=== PATIENT | male | born 1940 | race Caucasian/White ===

== ENCOUNTER 2019-08-13 12:50 | Inpatient (IN) ==
[2019-08-13] MEDS ORDERED: ADENOSINE 3 MG/ML VIAL IV ONE ×3 (13:09→13:17)
[2019-08-13] MEDS ORDERED: DILTIAZEM 25 MG/5 ML VIAL IV ONE ×2 (13:15→14:33)
[2019-08-13] MEDS ORDERED: DILTIAZEM 125 MG in DEXTROSE 5% IN WATER 100 ML IV SCH (13:15)
--- NOTE | 2019-08-13 13:19 | Emergency Department Note ---
Arrhythmia/Palpitations HPI - General Chief Complaint: Arrhythmia/Palpitations Stated Complaint: cough, elevated HR Time Seen by Provider: 08/13/19 12:56 Source: patient Mode of arrival: ambulatory Limitations: no limitations - History of Present Illness HPI Narrative: Has had some increased dyspnea on exertion for the last 2 weeks. He came to the emergency room because of that and was not aware that his heart was beating fast. He is in atrial flutter at rate about 170. Has never had that before. He does have a history of mild COPD and has had a slight cough recently bringing up some slight yellow phlegm. Does not feel very short of breath except when he exerts himself. Has had no chest pain. No nausea or vomiting. - Related Data Home Medications Medication Instructions Recorded Confirmed lisinopril 10 mg tablet 10 mg PO QDAY 09/18/17 08/13/19 omeprazole 20 mg capsule,delayed 20 mg PO .COMPLEX 09/18/17 08/13/19 release simvastatin 10 mg tablet 10 mg PO QDAY tab 01/31/18 08/13/19 2 liters oxygen at night 1 dose .ROUTE QHS #1 ea 12/26/18 08/13/19 Allergies Allergy/AdvReac Type Severity Reaction Status Date / Time No Known Drug Allergies Allergy Verified 06/15/19 14:27 Review of Systems All systems ED: reviewed and negative except as stated. Past Medical History - Past Medical History [facility] Narrative: Medical History (Last Reviewed 06/15/19 @ 15:07 by Jeb Ceballos MD) Nocturnal hypoxia (Acute) Pulmonary HTN (Chronic) Bronchiectasis (Chronic) Gastroesophageal reflux disease (Chronic) Bullous emphysema (Chronic) Kidney disease, chronic, stage III (GFR 30-59 ml/min) (Chronic) Spondylosis, lumbar, with myelopathy (Chronic) Bronchitis, chronic obstructive (Chronic) Arthritis (Chronic) Lumbago (Chronic) Actinic keratosis (Chronic) Lateral epicondylitis of both elbows (Chronic) Medial epicondylitis (Chronic) Nicotine dependence (Chronic) Osteoarthritis (Chronic) Pure hypercholesterolemia (Chronic) CKD (chronic kidney disease), stage II (Chronic) COPD (chronic obstructive pulmonary disease) (Chronic) Poor dentition (Chronic) Left sided chest pain (Chronic) Systolic murmur (Chronic) Pneumatocele of lung (Chronic) Avulsion of skin of finger (Chronic) Loss of teeth due to extraction (Acute) Emphysema/COPD (Chronic) Past Surgical History (Last Reviewed 06/15/19 @ 15:07 by Jeb Ceballos MD) History of arthroscopy of knee (Chronic ~1987) History of nasal surgery (Chronic) Family History (Last Reviewed 06/15/19 @ 15:07 by Jeb Ceballos MD) Mother Heart disease Father Prostate cancer Liver cancer Sister Cancer Unknown Thyroid disease Breast cancer Diabetes mellitus Medical history: Reports: COPD - Social History smoking status: Former smoker Physical Exam Limitations: no limitations General appearance: alert Head: atraumatic Eye: Present: normal appearance ENT: Present: normal exam Neck: Present: normal inspection Chest: Present: normal inspection Respiratory: Present: normal lung sounds bilaterally Cardiovascular: Present: regular rate, tachycardia, normal heart sounds Abdominal: Present: soft. Absent: distention, tenderness Neurological: Present: alert Psychiatric: Present: normal affect Skin: Present: warm, dry Course Course Narrative: Patient was given adenosine 6 mg without effect and then given 12 mg which showed flutter waves and return to the heart rate to 170. At that point we started him on diltiazem. Vital Signs Pulse Rate 170 H 08/13/19 12:50 Respiratory Rate 24 H 08/13/19 12:50 Blood Pressure 125/85 08/13/19 12:50 Pulse Oximetry (%) 93 08/13/19 12:50 Temperature 98.1 F 08/13/19 13:57 Pulse Rate 107 H 08/13/19 17:13 Respiratory Rate 18 08/13/19 17:13 Blood Pressure 101/63 08/13/19 17:11 Pulse Oximetry (%) 93 08/13/19 17:13 Arrhythmia/Palpitations - [facility] Narrative Medical decision making narrative: Patient's chest x-ray surprisingly showed quite a bit of pneumonia bilaterally. Cultures were obtained and he was treated with Levaquin and Rocephin and Zosyn. We did give him diltiazem to bring his heart rate down. He will be admitted the hospital by Dr. Renner. - Lab Data Lab results reviewed: Yes I reviewed the patient's lab results. Result diagrams: 08/13/19 13:00 08/13/19 13:00 Lab Results 08/13/19 08/13/19 08/13/19 Range/Units 13:00 13:00 13:00 WBC 11.7 H (4.50-11.00) K/mcL RBC 4.09 L (4.63-6.08) M/mcL Hgb 12.6 L (13.7-17.5) g/dL Hct 40.4 (40.1-51.0) % MCV 98.8 (80.0-100.0) fL MCH 30.8 (26.0-34.0) pg MCHC 31.2 (31.0-36.0) g/dL RDW 14.1 (11.5-14.5) % Plt Count 449 H (140-440) K/mcL MPV 9.2 (7.4-10.4) fL Gran % 66.6 (38.0-78.0) % Lymph % (Auto) 18.6 (15.5-49.0) % [place] % (Auto) 12.1 H (1.0-12.0) % Eos % (Auto) 2.5 (0.0-7.0) % Baso % (Auto) 0.2 (0.0-2.0) % Gran # 7.78 (1.80-8.00) K/mcL Lymph # (Auto) 2.17 (1.50-4.80) K/mcL [place] # (Auto) 1.41 H (0.10-0.90) K/mcL Eos # (Auto) 0.29 (0.00-0.70) K/mcL Baso # (Auto) 0.02 (0.00-0.30) K/mcL VBG Lactic Acid (0.5-2.0) mmol/L Sodium 139 (133-145) mmol/L Potassium 4.2 (3.3-5.1) mmol/L Chloride 102 (96-108) mmol/L Carbon Dioxide 24 (22-30) mmol/L Anion Gap 13.0 (8-16) BUN 15 (8-23) mg/dl Creatinine 1.0 (0.7-1.2) mg/dl GFR Calculation 73 Glucose 126 H (70-105) mg/dL Calcium 9.2 (8.6-10.4) mg/dl Total Bilirubin 0.3 (0.0-1.0) mg/dL AST 20 (0-37) U/l ALT 21 (0-40) U/l Alkaline Phosphatase 71 (39-117) U/L Troponin T < 0.01 (0-0.03) ng/ml Total Protein 7.3 (5.9-8.4) gm/dL Albumin 3.6 (3.2-5.2) gm/dL Globulin 3.7 (2.2-3.7) gm/dL Albumin/Globulin Ratio 1.0 (1.0-2.3) 08/13/19 Range/Units 14:10 WBC (4.50-11.00) K/mcL RBC (4.63-6.08) M/mcL Hgb (13.7-17.5) g/dL Hct (40.1-51.0) % MCV (80.0-100.0) fL MCH (26.0-34.0) pg MCHC (31.0-36.0) g/dL RDW (11.5-14.5) % Plt Count (140-440) K/mcL MPV (7.4-10.4) fL Gran % (38.0-78.0) % Lymph % (Auto) (15.5-49.0) % [place] % (Auto) (1.0-12.0) % Eos % (Auto) (0.0-7.0) % Baso % (Auto) (0.0-2.0) % Gran # (1.80-8.00) K/mcL Lymph # (Auto) (1.50-4.80) K/mcL [place] # (Auto) (0.10-0.90) K/mcL Eos # (Auto) (0.00-0.70) K/mcL Baso # (Auto) (0.00-0.30) K/mcL VBG Lactic Acid 1.0 (0.5-2.0) mmol/L Sodium (133-145) mmol/L Potassium (3.3-5.1) mmol/L Chloride (96-108) mmol/L Carbon Dioxide (22-30) mmol/L Anion Gap (8-16) BUN (8-23) mg/dl Creatinine (0.7-1.2) mg/dl GFR Calculation Glucose (70-105) mg/dL Calcium (8.6-10.4) mg/dl Total Bilirubin (0.0-1.0) mg/dL AST (0-37) U/l ALT (0-40) U/l Alkaline Phosphatase (39-117) U/L Troponin T (0-0.03) ng/ml Total Protein (5.9-8.4) gm/dL Albumin (3.2-5.2) gm/dL Globulin (2.2-3.7) gm/dL Albumin/Globulin Ratio (1.0-2.3) - Radiology Data Radiology results reviewed: Yes I reviewed the patient's radiology results. Disposition Pt seen by APPLICATION SECURITY ENGINEER/PA only: No Clinical Impression: Atrial flutter, Pneumonia COPD (chronic obstructive pulmonary disease) Qualifiers: COPD type: chronic bronchitis Chronic bronchitis type: simple Qualified Code(s): J41.0 - Simple chronic bronchitis Disposition: Xfer As Inpt ([facility]) Condition: Good Referrals: Christiano Gramajo MD [Primary Care Provider] - Time of Disposition: 17:33
--- NOTE | 2019-08-13 13:36 | XRay Report ---
CLINICAL INFORMATION: sob COMPARISON: Chest CT 01/30/2019. FINDINGS: Mild cardiomegaly is unchanged. Mediastinum and pulmonary vessels are normal. Moderate perihilar infiltrates have developed since previous exam. This is more severe on the left. Small bilateral pleural effusions appreciated IMPRESSION: Moderate perihilar infiltrates, more severe on the left, with small effusions. Consider aspiration or, less likely, pneumonia or ARDS. Moderate underlying COPD Interpreted and Authenticated by: Juma Zavala 08/13/19
[2019-08-13] MEDS ORDERED: PIPERACILLIN SODIUM/TAZOBACTAM 3.375 GM in DEXTROSE 5% IN WATER 50 ML IV ONE (13:53)
[2019-08-13] MEDS ORDERED: LEVOFLOXACIN 750 MG/150 ML BAG IV ONE (13:53)
[2019-08-13] MEDS ORDERED: cefTRIAXone 2 GM in DEXTROSE 5% IN WATER 50 ML IV ONE (13:53)
[2019-08-13 13:55] LABS: Basophils # (Auto) 0.02 K/mcL (0.00-0.30); Basophils % (Auto) 0.2 % (0.0-2.0); Eosinophils # (Auto) 0.29 K/mcL (0.00-0.70); Eosinophils % (Auto) 2.5 % (0.0-7.0); Granulocytes % (Auto) 66.6 % (38.0-78.0); Hematocrit 40.4 % (40.1-51.0); Hemoglobin 12.6 g/dL (13.7-17.5); Lymphocytes # (Auto) 2.17 K/mcL (1.50-4.80); Lymphocytes % (Auto) 18.6 % (15.5-49.0); Mean Cell Volume 98.8 fL (80.0-100.0); Mean Corpuscular HGB Conc 31.2 g/dL (31.0-36.0); Mean Platelet Volume 9.2 fL (7.4-10.4); Monocytes # (Auto) 1.41 K/mcL (0.10-0.90); Monocytes % (Auto) 12.1 % (1.0-12.0); Platelet Count 449 K/mcL (140-440); RBC 4.09 M/mcL (4.63-6.08); Red Cell Distribution Width 14.1 % (11.5-14.5); WBC 11.7 K/mcL (4.50-11.00)
[2019-08-13 14:11] LABS: ALT/SGPT 21 U/l (0-40); AST/SGOT 20 U/l (0-37); Albumin 3.6 gm/dL (3.2-5.2); Alkaline Phosphatase 71 U/L (39-117); Bilirubin,Total 0.3 mg/dL (0.0-1.0); Blood Urea Nitrogen 15 mg/dl (8-23); Calcium 9.2 mg/dl (8.6-10.4); Carbon Dioxide 24 mmol/L (22-30); Chloride 102 mmol/L (96-108); Globulin 3.7 gm/dL (2.2-3.7); Glomerular Filtration Rate 73; Glucose 126 mg/dL (70-105)
--- NOTE | 2019-08-13 16:19 | Internal Med History&Physical ---
Medical - H&P: HPI Patient information: Note initiated : 08/13/19 at 4:16 pm Service Date, if different from initiated Date: [] Patient: Mat Elam 78 y/o M admitted on for cough, elevated HR. Chief Complaint: [] Chief complaint: Shortness of breath/chest palpitations History of present illness: Mr. 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 Symptoms progressed to the point patient could barely function. Shortness of breath progressed from maximal exertion to minimal activity. He also has been experie ncing chest fluttering sensation over the last couple of days. With increasing concerns he presents to the ER. Initial work-up was consistent with A. fib RVR/bilateral pneumonia. Patient was started on antibiotic coverage. Hospitalist service was consulted. Of the evaluation patient is accompanied with his . He was able to answer most of the questions. He denies headache photophobia but endorses to increasing yellow productive sputum/increasing dyspnea and symptoms as above. He denies diarrhea, dysuria, abdominal pain, chest pain, diaphoresis. He recently had a aspiration episode on a pill with spells of coughing and eventually was able to cough out the pill but feels that his symptoms has worsens since that day. He denies sick contact. He endorses recent travel to [place] for ice fishing a week ago. He denies recent hospitalization. Review of systems A 10 point review system was performed and is negative except for ones cussed above Medical - H&P: PMH Medical history: Nocturnal hypoxia (Acute) Pulmonary HTN (Chronic) Right ventricular systolic pressure 46 in May 2017 by echo Bronchiectasis (Chronic) Gastroesophageal reflux disease (Chronic) Bullous emphysema (Chronic) Kidney disease, chronic, stage III (GFR 30-59 ml/min) (Chronic) Spondylosis, lumbar, with myelopathy (Chronic) Bronchitis, chronic obstructive (Chronic) Arthritis (Chronic) Lumbago (Chronic) Actinic keratosis (Chronic) Lateral epicondylitis of both elbows (Chronic) Medial epicondylitis (Chronic) Nicotine dependence (Chronic) Osteoarthritis (Chronic) Pure hypercholesterolemia (Chronic) CKD (chronic kidney disease), stage II (Chronic) COPD (chronic obstructive pulmonary disease) (Chronic) Poor dentition (Chronic) Left sided chest pain (Chronic) Systolic murmur (Chronic) Pneumatocele of lung (Chronic) Avulsion of skin of finger (Chronic) Loss of teeth due to extraction (Acute) Emphysema/COPD (Chronic) Surgical History History of arthroscopy of knee (Chronic ~1987) History of nasal surgery (Chronic) Family History Mother Heart disease Father Prostate cancer Liver cancer Sister Cancer Unknown Thyroid disease Breast cancer Diabetes mellitus Medical - H&P: Meds Home Medications Medication Instructions Recorded Confirmed Type lisinopril 10 mg tablet 10 mg PO QDAY 09/18/17 08/13/19 History omeprazole 20 mg capsule,delayed 20 mg PO .COMPLEX 09/18/17 08/13/19 History release simvastatin 10 mg tablet 10 mg PO QDAY tab 01/31/18 08/13/19 History 2 liters oxygen at night 1 dose .ROUTE QHS #1 ea 12/26/18 08/13/19 History Cranberry 400 mg PO DAILY 08/13/19 08/13/19 History Gelatin [Gelfilm] 1 tab PO DAILY 08/13/19 08/13/19 History Turmeric Root Extract [Turmeric] 1 tab PO DAILY 08/13/19 08/13/19 History Vitamin D3 1,000 unit PO DAILY 08/13/19 08/13/19 History Allergies Allergy/AdvReac Type Severity Reaction Status Date / Time No Known Drug Allergies Allergy Verified 06/15/19 14:27 Medical - H&P: Exam - Constitutional Vitals: Temp Pulse Resp BP Pulse Ox 98.1 F 170 H 24 H 125/85 93 08/13/19 13:57 08/13/19 12:50 08/13/19 12:50 08/13/19 12:50 08/13/19 12:50 General appearance: no acute distress Exam: Alert oriented Head normocephalic Oral cavity dry No ear nose discharge Neck lymphadenopathy S1-S2 regular rhythm Diminished breath sounds bases, coarse late inspiratory crackles Abdomen soft nontender nondistended Lower extremity no sinus clubbing no joint swelling Skin no suspicious lesion Psych alert cooperative Neuro nonfocal Medical - H&P: Reslt - Labs CBC & Chem 7: 08/14/19 05:15 08/14/19 05:15 Labs: Short CBC 08/13/19 Range/Units 13:00 WBC 11.7 H (4.50-11.00) K/mcL Hgb 12.6 L (13.7-17.5) g/dL Hct 40.4 (40.1-51.0) % Plt Count 449 H (140-440) K/mcL BMP 08/13/19 13:00 Sodium 139 Potassium 4.2 Chloride 102 Carbon Dioxide 24 BUN 15 Creatinine 1.0 Glucose 126 H Calcium 9.2 Cardiac Enzymes 08/13/19 Range/Units 13:00 Troponin T < 0.01 (0-0.03) ng/ml Liver Function 08/13/19 Range/Units 13:00 Total Bilirubin 0.3 (0.0-1.0) mg/dL AST 20 (0-37) U/l ALT 21 (0-40) U/l Alkaline Phosphatase 71 (39-117) U/L Albumin 3.6 (3.2-5.2) gm/dL Medical - H&P: A/P (1) Atrial fibrillation with RVR Current visit: Yes Status: Acute * A. fib with RVR-initiated rate control measures with diltiazem. * Decompensated heart failure-initiated diuresis/echocardiogram. Optimize treatment based on echo results * Bilateral pneumonia continue antibiotic coverage. Likely community-acquired. * COPD exacerbation-history of emphysema/bronchiectasis. Continue bronchodilators/steroids/pulmonary toilet. Antibiotic coverage * History of hypertension continue lisinopril * Hyperlipidemia continue statin * GERD continue PPI * Full code * Prophylaxis heparin Plan * Inpatient admission * Antibiotic coverage * Rate control measures * Bronchodilators/steroids/pulmonary toilet/oxygen * Noninvasive ventilation if needed
[2019-08-13] MEDS ORDERED: BISACODYL 10 MG SUPP.RECT PR PRN (18:00)
[2019-08-13] MEDS ORDERED: ACETAMINOPHEN 650 MG/65 ML BOTTLE IV PRN (18:00)
[2019-08-13] MEDS ORDERED: ONDANSETRON 4 MG ODT TABLET SL PRN (18:00)
[2019-08-13] MEDS ORDERED: POTASSIUM CHLORIDE 20 MEQ PACKET PO PRN (18:00)
[2019-08-13] MEDS ORDERED: MAGNESIUM SULFATE 2 GM/50 ML BAG IV PRN (18:00)
[2019-08-13] MEDS ORDERED: MELATONIN 3 MG TABLET PO PRN (18:00)
[2019-08-13] MEDS ORDERED: ONDANSETRON 4 MG/2 ML VIAL IV PRN (18:00)
[2019-08-13] MEDS ORDERED: ACETAMINOPHEN 325 MG TABLET PO PRN (18:00)
[2019-08-13] MEDS ORDERED: POTASSIUM CHLORIDE 40 MEQ in DEXTROSE 5% IN WATER 500 ML IV PRN (18:00)
[2019-08-13] MEDS ORDERED: POLYETHYLENE GLYCOL 3350 17 GM PACKET PO PRN (18:00)
[2019-08-13] MEDS: cefTRIAXone 2 GM in DEXTROSE 5% IN WATER 50 ML IV SCH (19:29)
[2019-08-13] MEDS: DILTIAZEM 125 MG in 0.9 % SODIUM CHLORIDE 100 ML IV SCH (19:30)
[2019-08-13] MEDS: AZITHROMYCIN 500 MG in DEXTROSE 5% IN WATER 250 ML IV SCH (20:55)
[2019-08-13] MEDS: HEPARIN 5,000 UNIT/ML VIAL SQ SCH (20:55)
[2019-08-13] MEDS: SENNOSIDES/DOCUSATE SODIUM 1 TAB TABLET PO SCH (20:55)
[2019-08-13] MEDS: DOCUSATE SODIUM 100 MG CAPSULE PO SCH (20:55)
[2019-08-13] MEDS: BUDESONIDE 0.5 MG/2 ML AMPUL.NEB NEB SCH (21:17)
[2019-08-13] MEDS: IPRATROPIUM/ALBUTEROL 3 ML AMPUL.NEB NEB PRN (21:21)
[2019-08-13] MEDS: 0.9 % SODIUM CHLORIDE 10 ML SYRINGE IV SCH (22:25)
[2019-08-14] MEDS ORDERED: DILTIAZEM 125 MG in DEXTROSE 5% IN WATER 100 ML IV SCH (01:15)
[2019-08-14] MEDS: METOPROLOL TARTRATE 5 MG/5 ML VIAL IV PRN ×3 (02:06→08:10)
[2019-08-14] MEDS: DILTIAZEM 125 MG in 0.9 % SODIUM CHLORIDE 100 ML IV SCH ×3 (06:01→20:46)
[2019-08-14] MEDS: 0.9 % SODIUM CHLORIDE 10 ML SYRINGE IV SCH ×3 (06:01→23:58)
[2019-08-14 06:27] LABS: Hematocrit 38.5 % (40.1-51.0); Hemoglobin 12.1 g/dL (13.7-17.5); Mean Cell Volume 98.7 fL (80.0-100.0); Mean Corpuscular HGB Conc 31.4 g/dL (31.0-36.0); Mean Platelet Volume 9.1 fL (7.4-10.4); Platelet Count 390 K/mcL (140-440); Red Cell Distribution Width 14.3 % (11.5-14.5); WBC 14.3 K/mcL (4.50-11.00)
[2019-08-14 06:50] LABS: ALT/SGPT 20 U/l (0-40); AST/SGOT 21 U/l (0-37); Albumin 3.3 gm/dL (3.2-5.2); Alkaline Phosphatase 64 U/L (39-117); Bilirubin,Direct < 0.2 mg/dL (0.0-0.3); Bilirubin,Total 0.5 mg/dL (0.0-1.0); Blood Urea Nitrogen 16 mg/dl (8-23); Calcium 8.9 mg/dl (8.6-10.4); Carbon Dioxide 22 mmol/L (22-30); Chloride 101 mmol/L (96-108); Globulin 3.4 gm/dL (2.2-3.7); Glomerular Filtration Rate 73; Glucose 129 mg/dL (70-105); Lactate Dehydrogenase 209 U/L (94-250); Phosphorous 3.8 mg/dL (2.7-4.5); Triglycerides 61 mg/dl (<150); Uric Acid 5.6 mg/dL (2.5-8.0)
[2019-08-14 08:37] LABS: Lymphocytes % 14 % (15-49); Monocytes % (Manual) 9 % (1-12); Platelet Estimate NORMAL (NORMAL); RBC Morphology NORMAL (NORMAL); Segmented Neutrophils % 77 % (38-78)
[2019-08-14] MEDS ORDERED: DILTIAZEM 25 MG/5 ML VIAL IV ONE ×3 (08:59→18:52)
[2019-08-14] MEDS: BUDESONIDE 0.5 MG/2 ML AMPUL.NEB NEB SCH ×2 (09:23→20:36)
[2019-08-14] MEDS: IPRATROPIUM/ALBUTEROL 3 ML AMPUL.NEB NEB PRN ×2 (09:23→20:36)
[2019-08-14] MEDS: cefTRIAXone 2 GM in DEXTROSE 5% IN WATER 50 ML IV SCH (09:55)
[2019-08-14] MEDS: AZITHROMYCIN 500 MG in DEXTROSE 5% IN WATER 250 ML IV SCH (09:56)
[2019-08-14] MEDS: HEPARIN 5,000 UNIT/ML VIAL SQ SCH ×2 (09:56→20:45)
[2019-08-14] MEDS: SIMVASTATIN 10 MG TABLET PO SCH (09:57)
[2019-08-14] MEDS: DOCUSATE SODIUM 100 MG CAPSULE PO SCH ×2 (09:57→20:45)
[2019-08-14] MEDS: MULTIVIT,THER IRON,CA,FA & MIN 1 TABLET PO SCH (09:57)
[2019-08-14] MEDS: THIAMINE 100 MG TABLET PO SCH (09:57)
--- NOTE | 2019-08-14 10:24 | Internal Med Progress Note ---
Medical - PN: Subj Patient information: Note initiated : 08/14/19 at 10:21 am Service Date, if different from initiated Date: [] Patient: Mat Elam a 78 y/o M admitted on 08/13/19 for cough, elevated HR. Chief Complaint: [] Interval history: Mr. 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 Symptoms progressed to the point patient could barely function. Shortness of breath progressed from maximal exertion to minimal activity. He also has been experiencing chest fluttering sensation over the last couple of days. With increasing concerns he presents to the ER. Initial work-up was consistent with A. fib RVR/bilateral pneumonia. Patient was started on antibiotic coverage. Hospitalist service was consulted. Of the evaluation patient is accompanied with his . He was able to answer most of the questions. He denies headache photophobia but endorses to increasing yellow productive sputum/increasing dyspnea and symptoms as above. He denies diarrhea, dysuria, abdominal pain, chest pain, diaphoresis. He recently had a aspiration episode on a pill with spells of coughing and eventually was able to cough out the pill but feels that his symptoms has worsens since that day. He denies sick contact. He endorses recent travel to [place] for ice fishing a week ago. 08/13-patient doing better however had a rough night but was unable to sleep. Rate controlled around 110 requiring intermittent diltiazem boluses. On ant ibiotic coverage. White count at 14.3, sputum culture pending. Afebrile. Ongoing physical therapy. Tolerating diet. - Constitutional Vitals: Vital Signs Temp Pulse Resp BP Pulse Ox 97.5 F 108 H 12 97/84 95 08/14/19 07:37 08/14/19 09:33 08/14/19 09:33 08/14/19 08:16 08/14/19 08:26 Period Temp Pulse Resp BP Sys/Olivares Pulse Ox Last 24 Hr 97.4 F-98.3 F 43-173 12-35 78-125/52-90 89-99 Intake and Output 08/13/19 08/14/19 08/14/19 21:59 05:59 13:59 Intake Total 598 8 Output Total 750 Balance 598 -742 Weight 173 lb 4.8 oz Intake & Output: Intake & Output 08/13/19 08/14/19 08/14/19 21:59 05:59 13:59 Intake Total 598 8 Output Total 750 Balance 598 -742 Weight 173 lb 4.8 oz Intake: IV 598 8 Zithromax 500 mg In Dextrose 5% 250 in Water 250 ml @ 250 mls/hr IV Q24H [facility] Rx#:[id number] Cardizem 125 mg In Dextrose 5% 98 8 in Water 100 ml @ 5 MG/HR 5 mls /hr IV Q12H [facility] Rx#:[id number] Zosyn 3.375 gm In Dextrose 5% 50 in Water 50 ml @ 100 mls/hr IV ONCE ONE Rx#:[id number] Rocephin 2 gm In Dextrose 5% in 50 Water 50 ml @ 100 mls/hr IV ONCE ONE Rx#:[id number] Output: Urine Catheter Amount 750 Other: # Bowel Movements 1 General appearance: no acute distress Exam: Diminished breath sounds with bilateral crackles Head normocephalic Telemetry a flutter with RVR No lymphedema Medical - PN: Obj Da - Labs CBC & Chem 7: 08/14/19 05:15 08/14/19 05:15 Labs: Abnormal Lab Results 08/14/19 08/14/19 08/13/19 05:15 05:15 13:00 WBC 14.3 H RBC 3.90 L Hgb 12.1 L Hct 38.5 L Plt Count [place] % (Auto) [place] # (Auto) Lymphocytes % 14 L Glucose 129 H 126 H 08/13/19 13:00 WBC 11.7 H RBC 4.09 L Hgb 12.6 L Hct Plt Count 449 H [place] % (Auto) 12.1 H [place] # (Auto) 1.41 H Lymphocytes % Glucose Meds: Medications Acetaminophen (Tylenol) 650 mg PO Q4-6HP PRN; Protocol PRN Reason: Per Pain Protocol/Fever > 101 Albuterol/Ipratropium (Duoneb) 3 ml NEB Q4HP PRN PRN Reason: Shortness Of Breath Last Admin: 08/14/19 09:23 Dose: 3 ml Documented by: Bisacodyl (Dulcolax) 10 mg NM Q2-3DAYS PRN PRN Reason: Constipation Budesonide (Pulmicort) 0.5 mg NEB Q12 [facility] Last Admin: 08/14/19 09:23 Dose: 0.5 mg Documented by: Docusate Sodium (Colace) 100 mg PO BID [facility] Last Admin: 08/14/19 09:57 Dose: 100 mg Documented by: Furosemide (Lasix) 20 mg IV BIDD [facility] Heparin Sodium (Porcine) (Heparin) 5,000 unit SQ Q12 [facility] Last Admin: 08/14/19 09:56 Dose: 5,000 unit Documented by: Acetaminophen (Ofirmev) 650 mg in 65 mls @ 130 mls/hr IV Q6HP PRN; Protocol PRN Reason: Per Pain Protocol/Fever > 101 Magnesium Sulfate (Magnesium Sulfate) 2 gm in 50 mls @ 50 mls/hr IV UD PRN PRN Reason: MG = or < 1.7 Potassium Chloride 40 meq/ (Dextrose) 520 mls @ 130 mls/hr IV UD PRN PRN Reason: K+ = or < 3.5 Ceftriaxone Sodium 2 gm/ (Dextrose) 50 mls @ 100 mls/hr IV Q24H [facility]ELA; Protocol Last Admin: 08/14/19 09:55 Dose: 100 mls/hr Documented by: Diltiazem HCl 125 mg/ Sodium (Chloride) 125 mls @ 5 mls/hr IV Q12H [facility]; Protocol Last Admin: 08/14/19 09:11 Dose: 5 mg/hr, 5 mls/hr Documented by: Azithromycin 500 mg/ Dextrose 250 mls @ 250 mls/hr IV Q24H [facility]; Protocol Stop: 08/15/19 18:59 Last Admin: 08/14/19 09:56 Dose: 250 mls/hr Documented by: Iron Carb/Multivit/Safe Technician/Folic Acid (Multivitamin W/Minerals) 1 tab PO DAILY [facility] Last Admin: 08/14/19 09:57 Dose: 1 tab Documented by: Lisinopril (Zestril) 10 mg PO QDAY [facility] Melatonin (Melatonin 3mg Tablet) 3 mg PO HSP PRN PRN Reason: Insomnia Omeprazole (Prilosec) 20 mg PO [id number] [facility] Ondansetron HCl (Zofran Odt) 4 mg SL Q4-6HP PRN; Protocol PRN Reason: Nausea And Vomiting Ondansetron HCl (Zofran) 4 mg IV Q4-6HP PRN; Protocol PRN Reason: Nausea And Vomiting Polyethylene Glycol (Miralax) 17 gm PO DAILYP PRN PRN Reason: Constipation Potassium Chloride (Klor-Con) 40 meq PO DAILYP PRN PRN Reason: K+ < 3.5 Senna/Docusate Sodium (Senna Plus Tablet) 1 tab PO HS [facility] Last Admin: 08/13/19 20:55 Dose: 1 tab Documented by: Simvastatin (Zocor) 10 mg PO QDAY [facility] Last Admin: 08/14/19 09:57 Dose: 10 mg Documented by: Sodium Chloride (Saline Flush) 10 ml IV Q8 [facility] Last Admin: 08/14/19 06:01 Dose: 10 ml Documented by: Thiamine HCl (Vitamin B1) 100 mg PO DAILY [facility] Last Admin: 08/14/19 09:57 Dose: 100 mg Documented by: Medical - PN: A/P - Time Spent With Patient Total time spent is greater than 50% in coordination of care (as documented) at patient's floor/unit and/or counseling patient: 25 - 35 minutes (1) Atrial fibrillation with RVR Status: Acute Assessment and plan: * A. fib with RVR-continue rate control measures with diltiazem. Wean drip as tolerated * Decompensated heart failure-continue diuresis/await echocardiogram. Optimize treatment based on echo results * Bilateral pneumonia clinically improving on antibiotic coverage. Likely community-acquired. * COPD exacerbation-history of emphysema/bronchiectasis. Continue bronchodilators/steroids/pulmonary toilet. Antibiotic coverage * History of hypertension continue lisinopril * Hyperlipidemia continue statin * GERD continue PPI * Full code * Prophylaxis heparin Plan * Continue rate control measures * Antibiotic coverage * Bronchodilators/steroids/pulmonary toilet/oxygen * PT OT nutrition support * pre-existing medical condition management and home meds Current Visit: Yes
[2019-08-14] MEDS: FUROSEMIDE 40 MG/4 ML VIAL IV SCH ×2 (11:23→16:48)
[2019-08-14] MEDS: LISINOPRIL 10 MG TABLET PO SCH (12:20)
[2019-08-14] MEDS ORDERED: VANCOMYCIN PER PHARMACY IV SCH (13:51)
[2019-08-14] MEDS ORDERED: ADENOSINE 3 MG/ML VIAL IV ONE (15:35)
[2019-08-14] MEDS: VANCOMYCIN 1,500 MG in 0.9 % SODIUM CHLORIDE 500 ML IV SCH (16:48)
[2019-08-14] MEDS ORDERED: DILTIAZEM 125 MG/25 ML VIAL IV ONE (20:35)
[2019-08-14] MEDS: SENNOSIDES/DOCUSATE SODIUM 1 TAB TABLET PO SCH (20:45)
[2019-08-14] MEDS: DILTIAZEM 30 MG TABLET PO SCH ×2 (20:45→23:57)
[2019-08-15] MEDS: DILTIAZEM 30 MG TABLET PO SCH ×2 (05:53→12:27)
[2019-08-15] MEDS: 0.9 % SODIUM CHLORIDE 10 ML SYRINGE IV SCH ×3 (05:57→21:43)
[2019-08-15 06:08] LABS: Hematocrit 37.8 % (40.1-51.0); Mean Cell Volume 96.7 fL (80.0-100.0); Mean Corpuscular HGB Conc 31.7 g/dL (31.0-36.0); Platelet Count 390 K/mcL (140-440); RBC 3.91 M/mcL (4.63-6.08); Red Cell Distribution Width 14.3 % (11.5-14.5); WBC 19.6 K/mcL (4.50-11.00)
[2019-08-15 06:23] LABS: ALT/SGPT 19 U/l (0-40); AST/SGOT 18 U/l (0-37); Albumin 3.2 gm/dL (3.2-5.2); Albumin/Globulin Ratio 0.9 (1.0-2.3); Alkaline Phosphatase 58 U/L (39-117); Bilirubin,Direct < 0.2 mg/dL (0.0-0.3); Bilirubin,Total 0.7 mg/dL (0.0-1.0); Blood Urea Nitrogen 17 mg/dl (8-23); Calcium 8.6 mg/dl (8.6-10.4); Carbon Dioxide 20 mmol/L (22-30); Globulin 3.5 gm/dL (2.2-3.7); Glomerular Filtration Rate 73; Glucose 165 mg/dL (70-105); Lactate Dehydrogenase 230 U/L (94-250); Phosphorous 4.3 mg/dL (2.7-4.5); Triglycerides 43 mg/dl (<150); Uric Acid 6.6 mg/dL (2.5-8.0)
[2019-08-15 06:41] LABS: Chloride 95 mmol/L (96-108)
[2019-08-15 06:57] LABS: Lymphocytes % 8 % (15-49); Monocytes % (Manual) 12 % (1-12); Platelet Estimate NORMAL (NORMAL); RBC Morphology NORMAL (NORMAL); Segmented Neutrophils % 80 % (38-78)
[2019-08-15] MEDS: DILTIAZEM 125 MG in 0.9 % SODIUM CHLORIDE 100 ML IV SCH (07:13)
[2019-08-15] MEDS: OMEPRAZOLE 20 MG CAPSULE PO SCH (07:18)
[2019-08-15] MEDS: LISINOPRIL 10 MG TABLET PO SCH (08:13)
[2019-08-15] MEDS: SIMVASTATIN 10 MG TABLET PO SCH (08:13)
[2019-08-15] MEDS: MULTIVIT,THER IRON,CA,FA & MIN 1 TABLET PO SCH (08:13)
[2019-08-15] MEDS: DOCUSATE SODIUM 100 MG CAPSULE PO SCH ×2 (08:13→21:43)
[2019-08-15] MEDS: FUROSEMIDE 40 MG/4 ML VIAL IV SCH (08:13)
[2019-08-15] MEDS: THIAMINE 100 MG TABLET PO SCH (08:13)
[2019-08-15] MEDS: HEPARIN 5,000 UNIT/ML VIAL SQ SCH ×2 (08:14→21:43)
[2019-08-15] MEDS ORDERED: METOPROLOL TARTRATE 25 MG TABLET PO SCH (09:00)
[2019-08-15] MEDS: cefTRIAXone 2 GM in DEXTROSE 5% IN WATER 50 ML IV SCH (09:13)
[2019-08-15] MEDS: IPRATROPIUM/ALBUTEROL 3 ML AMPUL.NEB NEB PRN (09:16)
[2019-08-15] MEDS: BUDESONIDE 0.5 MG/2 ML AMPUL.NEB NEB SCH ×2 (09:16→23:00)
[2019-08-15] MEDS: AZITHROMYCIN 500 MG in DEXTROSE 5% IN WATER 250 ML IV SCH (09:43)
--- NOTE | 2019-08-15 09:54 | XRay Report ---
CLINICAL INFORMATION: Follow-up infiltrates COMPARISON: 08/13/2019 FINDINGS: Mild cardiomegaly is unchanged. Mediastinum and pulmonary vessels are normal. Moderate right perihilar infiltrate has worsened. Moderate infiltrate in the left perihilar and left basilar region shows only slight worsening. No effusions. IMPRESSION: Moderate perihilar infiltrates or edema more severe on the right side worsened considerably from exam two days ago Interpreted and Authenticated by: Juma Zavala 08/15/19
[2019-08-15] MEDS: VANCOMYCIN 1,500 MG in 0.9 % SODIUM CHLORIDE 500 ML IV SCH (10:40)
[2019-08-15] MEDS ORDERED: LORazepam 2 MG/ML VIAL ONE (11:50)
[2019-08-15] MEDS ORDERED: LORazepam 2 MG/ML VIAL IV ONE (11:55)
[2019-08-15] MEDS ORDERED: CALCIUM GLUCONATE 4.65 MEQ/10 ML VIAL ONE (12:16)
[2019-08-15] MEDS ORDERED: CALCIUM GLUCONATE 4.65 MEQ/10 ML VIAL IV ONE (12:21)
[2019-08-15] MEDS: NOREPINEPHRINE BITARTRATE 16 MG in 0.9 % SODIUM CHLORIDE 234 ML IV SCH (12:25)
[2019-08-15] MEDS: 0.9 % SODIUM CHLORIDE 250 ML IV SCH (12:25)
[2019-08-15 13:51] LABS: Creatine Kinase 51 IU/L (24-195); Creatine Kinase MB 1.1 ng/ml (0-4.9)
[2019-08-15] MEDS ORDERED: GLUCAGON,HUMAN RECOMBINANT 1 MG VIAL IV ONE (14:24)
--- NOTE | 2019-08-15 14:51 | Internal Med Progress Note ---
Medical - PN: Subj Patient information: Note initiated : 08/15/19 at 2:47 pm Service Date, if different from initiated Date: [] Patient: Mat Elam a 78 y/o M admitted on 08/13/19 for cough, elevated HR. Chief Complaint: [] Interval history: Mr. Elam is a 78 year old M with a history of COPD/bronchiectasis and managed by Dr. Ceballos contact officer outpatient presents to the ER with progressive dyspnea over the last 2-1/2 weeks along with yellow productive sputum. Symptoms progressed to the point patient could barely function. Shortness of breath progressed from maximal exertion to minimal activity. He also has been experiencing chest fluttering sensation over the last couple of days. With increasing concerns he presents to the ER. Initial work-up was consistent with A. fib RVR/bilateral pneumonia. Patient was started on antibiotic coverage. Hospitalist service was consulted. Of the evaluation patient is accompanied with his . He was able to answer most of the questions. He denies headache photophobia but endorses to increasing yellow productive sputum/increasing dyspnea and symptoms as above. He denies diarrhea, dysuria, abdominal pain, chest pain, diaphoresis. He recently had a aspiration episode on a pill with spells of coughing and eventually was able to cough out the pill but feels that his symptoms has worsens since that day. He denies sick contact. He endorses recent travel to [place] for ice fishing a week ago. 08/13-patient doing better however had a rough night but was unable to sleep. Rate controlled around 110 requiring intermittent diltiazem boluses. On anti biotic coverage. White count at 14.3, sputum culture pending. Afebrile. Ongoing physical therapy. Tolerating diet. 08/14-persistent RVR requiring diltiazem drip in addition metoprolol 25 twice juana ly. Patient developed bradycardia and hypotension after transiently converting to sinus. A flutter with forced to 1/5-1 block. Systolics 60s. Glucagon ordered and discontinued diltiazem drip. Glucagon drip started along with nor epi drip. 1/2 L fluid bolus challenge. Following initial intervention systolics improved to mid 80s. Patient less symptomatic. Continue ICU monitoring. Initial blood culture gram-positive cocci. Surveillance cultures negative so far. X-ray chest worsening chest infiltrates/pneumonia. Sputum gram-positive cocci. Patient critically ill with deteriorating respiratory status/pneumonia and sepsis. White count 19.6. - Constitutional Vitals: Vital Signs Temp Pulse Resp BP Pulse Ox 97.2 F 66 23 H 101/66 100 08/15/19 06:46 08/15/19 12:21 08/15/19 13:41 08/15/19 13:41 08/15/19 13:41 Period Temp Pulse Resp BP Sys/Olivares Pulse Ox Last 24 Hr 97.2 F-98.5 F 44-161 17-41 59-149/33-100 85-100 Intake and Output 08/15/19 08/15/19 08/15/19 05:59 13:59 21:59 Intake Total 240 1232 Output Total 550 250 Balance -310 982 Intake & Output: Intake & Output 08/15/19 08/15/19 08/15/19 05:59 13:59 21:59 Intake Total 240 1232 Output Total 550 250 Balance -310 982 Intake: IV 932 Zithromax 500 mg In Dextrose 5% 250 in Water 250 ml @ 250 mls/hr IV Q24H ISABELA Rx#:[id number] Cardizem 125 mg In Sodium 182 Chloride 0.9% 100 ml @ 5 MG/HR 5 mls/hr IV Q12H ISABELA Rx#: [id number] Vancomycin 1,500 mg In Sodium 500 Chloride 0.9% 500 ml @ 333.3 mls/hr IV Q24H ISABELA Rx#: [id number] Oral 240 300 Output: Urine Catheter Amount 250 Void Amount 550 Other: Urine Appearance Clear Cloudy Urine Color Bright Yellow Dark Yellow General appearance: no acute distress Exam: Anxious and cyanotic transiently following hypotension Bradycardia with a flutter variable block Diminished breath sounds Medical - PN: Obj Da - Labs CBC & Chem 7: 08/15/19 04:24 08/15/19 04:24 Labs: Abnormal Lab Results 08/15/19 08/15/19 08/14/19 04:24 04:24 05:15 WBC 19.6 H RBC 3.91 L Hgb 12.0 L Hct 37.8 L Plt Count [place] % (Auto) [place] # (Auto) Seg Neutrophils % 80 H Lymphocytes % 8 L Sodium 130 L Chloride 95 L Carbon Dioxide 20 L Glucose 165 H 129 H Albumin/Globulin Ratio 0.9 L 08/14/19 08/13/19 08/13/19 05:15 13:00 13:00 WBC 14.3 H 11.7 H RBC 3.90 L 4.09 L Hgb 12.1 L 12.6 L Hct 38.5 L Plt Count 449 H [place] % (Auto) 12.1 H [place] # (Auto) 1.41 H Seg Neutrophils % Lymphocytes % 14 L Sodium Chloride Carbon Dioxide Glucose 126 H Albumin/Globulin Ratio Meds: Medications Acetaminophen (Tylenol) 650 mg PO Q4-6HP PRN; Protocol PRN Reason: Per Pain Protocol/Fever > 101 Albuterol/Ipratropium (Duoneb) 3 ml NEB Q4HP PRN PRN Reason: Shortness Of Breath Last Admin: 08/15/19 09:16 Dose: 3 ml Documented by: Bisacodyl (Dulcolax) 10 mg [place] Q2-3DAYS PRN PRN Reason: Constipation Budesonide (Pulmicort) 0.5 mg NEB Q12 [facility] Last Admin: 08/15/19 09:16 Dose: 0.5 mg Documented by: Diltiazem HCl (Cardizem) 90 mg PO Q6 [facility] Last Admin: 08/15/19 12:27 Dose: Not Given Documented by: Docusate Sodium (Colace) 100 mg PO BID [facility] Last Admin: 08/15/19 08:13 Dose: 100 mg Documented by: Furosemide (Lasix) 20 mg IV BIDD [facility] Last Admin: 08/15/19 08:13 Dose: 20 mg Documented by: Heparin Sodium (Porcine) (Heparin) 5,000 unit SQ Q12 [facility] Last Admin: 08/15/19 08:14 Dose: 5,000 unit Documented by: Acetaminophen (Ofirmev) 650 mg in 65 mls @ 130 mls/hr IV Q6HP PRN; Protocol PRN Reason: Per Pain Protocol/Fever > 101 Magnesium Sulfate (Magnesium Sulfate) 2 gm in 50 mls @ 50 mls/hr IV UD PRN PRN Reason: MG = or < 1.7 Potassium Chloride 40 meq/ (Dextrose) 520 mls @ 130 mls/hr IV UD PRN PRN Reason: K+ = or < 3.5 Ceftriaxone Sodium 2 gm/ (Dextrose) 50 mls @ 100 mls/hr IV Q24H ISABELA; Protocol Last Admin: 08/15/19 09:13 Dose: 100 mls/hr Documented by: Diltiazem HCl 125 mg/ Sodium (Chloride) 125 mls @ 5 mls/hr IV Q12H [facility]; Protocol Last Titration: 08/15/19 11:00 Dose: 0 mg/hr, 0 mls/hr Documented by: Azithromycin 500 mg/ Dextrose 250 mls @ 250 mls/hr IV Q24H [facility]; Protocol Stop: 08/15/19 18:59 Last Infusion: 08/15/19 10:50 Dose: Infused Documented by: Vancomycin HCl 1,500 mg/ (Sodium Chloride) 500 mls @ 333.3 mls/hr IV Q24H [facility] Last Infusion: 08/15/19 12:28 Dose: Infused Documented by: Norepinephrine Bitartrate 16 (mg/ Sodium Chloride) 250 mls @ 9.375 mls/hr IV Q24H [facility]; Protocol Last Admin: 08/15/19 12:25 Dose: 10 mcg/min, 9.375 mls/hr Documented by: Sodium Chloride (Sodium Chloride 0.9%) 250 mls @ 20 mls/hr IV .[id number] [facility] Last Admin: 08/15/19 12:25 Dose: Not Given Documented by: Iron Carb/Multivit/[place]/Folic Acid (Multivitamin W/Minerals) 1 tab PO DAILY [facility] Last Admin: 08/15/19 08:13 Dose: 1 tab Documented by: Lisinopril (Zestril) 10 mg PO QDAY [facility] Last Admin: 08/15/19 08:13 Dose: 10 mg Documented by: Melatonin (Melatonin 3mg Tablet) 3 mg PO HSP PRN PRN Reason: Insomnia Metoprolol Tartrate (Lopressor) 25 mg PO BID [facility] Last Admin: 08/15/19 09:14 Dose: 25 mg Documented by: Omeprazole (Prilosec) 20 mg PO [id number] [facility] Last Admin: 08/15/19 07:18 Dose: 20 mg Documented by: Ondansetron HCl (Zofran Odt) 4 mg SL Q4-6HP PRN; Protocol PRN Reason: Nausea And Vomiting Ondansetron HCl (Zofran) 4 mg IV Q4-6HP PRN; Protocol PRN Reason: Nausea And Vomiting Polyethylene Glycol (Miralax) 17 gm PO DAILYP PRN PRN Reason: Constipation Potassium Chloride (Klor-Con) 40 meq PO DAILYP PRN PRN Reason: K+ < 3.5 Senna/Docusate Sodium (Senna Plus Tablet) 1 tab PO HS [facility] Last Admin: 08/14/19 20:45 Dose: 1 tab Documented by: Simvastatin (Zocor) 10 mg PO QDAY [facility] Last Admin: 08/15/19 08:13 Dose: 10 mg Documented by: Sodium Chloride (Saline Flush) 10 ml IV Q8 [facility] Last Admin: 08/15/19 05:57 Dose: 10 ml Documented by: Thiamine HCl (Vitamin B1) 100 mg PO DAILY [facility] Last Admin: 08/15/19 08:13 Dose: 100 mg Documented by: Vancomycin HCl (Vancomycin Per Pharmacy) 1 order IV UD [facility]; Protocol Medical - PN: A/P - Time Spent With Patient Total time spent is greater than 50% in coordination of care (as documented) at patient's floor/unit and/or counseling patient: Greater than 35 minutes (Critical care time) (1) Atrial fibrillation with RVR Status: Acute Assessment and plan: * Bilateral pneumonia clinically worsening on imaging. Extend antibiotic cover age to include anaerobes * Severe sepsis with leukocytosis 19.6. Evidence of endorgan dysfunction in cluding atrial flutter. Escalate antibiotic coverage to cefepime/vancomycin * Bradycardia/hypotension/circulatory shock-responded well to crystalloid/glucagon/pressors. Likely secondary to calcium channel prince. Consider amiodarone in light of hypotension * A. fib with RVR-transiently converted to sinus followed by a flutter with bradycardia. Diltiazem discontinued. Status post glucagon/crystalloids and pressors to maintain map at goal. If persistent hypotension/bradycardia patient will need cardiology follow-up/transfer to tertiary center. * Decompensated heart failure-hold diuresis( hypotension). Echo ef 40-45% * COPD exacerbation-history of emphysema/bronchiectasis. Continue bronchod ilators/steroids/pulmonary toilet. Antibiotic coverage * History of hypertension continue lisinopril * Hyperlipidemia continue statin * GERD continue PPI * Full code * Prophylaxis heparin Plan * Continue ICU care * Add cefepime * Vasopressors/glucagon drip * Critically ill family made aware. * Consider amiodarone if frequent RVR * Considers transfer to tertiary center if clinically deteriorates * Bronchodilators/steroids/pulmonary toilet/oxygen * PT OT nutrition support * pre-existing medical condition management and home meds Current Visit: Yes
[2019-08-15] MEDS: CEFEPIME 2 GM VIAL IV SCH ×2 (15:24→21:43)
[2019-08-15] MEDS ORDERED: DILTIAZEM 30 MG TABLET PO SCH (20:00)
[2019-08-15] MEDS: SENNOSIDES/DOCUSATE SODIUM 1 TAB TABLET PO SCH (21:43)
[2019-08-15 22:37] LABS: Creatine Kinase MB 1.3 ng/ml (0-4.9)
[2019-08-15 22:39] LABS: Creatine Kinase 52 IU/L (24-195)
[2019-08-16] MEDS: NOREPINEPHRINE BITARTRATE 16 MG in 0.9 % SODIUM CHLORIDE 234 ML IV SCH ×2 (02:22→16:03)
[2019-08-16] MEDS: 0.9 % SODIUM CHLORIDE 250 ML IV SCH ×2 (02:22→16:11)
[2019-08-16 05:55] LABS: Hematocrit 36.9 % (40.1-51.0); Mean Cell Volume 96.6 fL (80.0-100.0); Mean Corpuscular HGB Conc 32.5 g/dL (31.0-36.0); Mean Platelet Volume 9.3 fL (7.4-10.4); Platelet Count 439 K/mcL (140-440); RBC 3.82 M/mcL (4.63-6.08); Red Cell Distribution Width 14.4 % (11.5-14.5); WBC 20.7 K/mcL (4.50-11.00)
[2019-08-16 06:41] LABS: ALT/SGPT 55 U/l (0-40); AST/SGOT 53 U/l (0-37); Albumin/Globulin Ratio 0.8 (1.0-2.3); Alkaline Phosphatase 57 U/L (39-117); Bilirubin,Direct < 0.2 mg/dL (0.0-0.3); Bilirubin,Total 0.3 mg/dL (0.0-1.0); Calcium 8.5 mg/dl (8.6-10.4); Carbon Dioxide 18 mmol/L (22-30); Chloride 96 mmol/L (96-108); Globulin 3.7 gm/dL (2.2-3.7); Glucose 147 mg/dL (70-105); Lactate Dehydrogenase 259 U/L (94-250); Triglycerides 60 mg/dl (<150)
[2019-08-16 06:44] LABS: Creatine Kinase MB 1.3 ng/ml (0-4.9)
[2019-08-16 06:55] LABS: Blood Urea Nitrogen 42 mg/dl (8-23); Glomerular Filtration Rate 20; Phosphorous 6.3 mg/dL (2.7-4.5); Uric Acid 8.7 mg/dL (2.5-8.0)
[2019-08-16] MEDS: CEFEPIME 2 GM VIAL IV SCH ×3 (07:24→23:22)
[2019-08-16] MEDS: 0.9 % SODIUM CHLORIDE 10 ML SYRINGE IV SCH ×4 (07:24→20:33)
[2019-08-16 07:32] LABS: Band Neutrophils % 1 % (0-10); Eosinophils % (Manual) 1 % (0-7); Lymphocytes % 7 % (15-49); Monocytes % (Manual) 18 % (1-12); Platelet Estimate NORMAL (NORMAL); RBC Morphology NORMAL (NORMAL); Segmented Neutrophils % 73 % (38-78)
[2019-08-16] MEDS ORDERED: AMIODARONE 300 MG in DEXTROSE 5% IN WATER 50 ML IV ONE (08:15)
[2019-08-16] MEDS: THIAMINE 100 MG TABLET PO SCH (08:20)
[2019-08-16] MEDS: MULTIVIT,THER IRON,CA,FA & MIN 1 TABLET PO SCH (08:20)
[2019-08-16] MEDS: LISINOPRIL 10 MG TABLET PO SCH (08:20)
[2019-08-16] MEDS: DOCUSATE SODIUM 100 MG CAPSULE PO SCH ×2 (08:20→20:33)
[2019-08-16] MEDS: SIMVASTATIN 10 MG TABLET PO SCH (08:21)
[2019-08-16] MEDS: HEPARIN 5,000 UNIT/ML VIAL SQ SCH ×2 (08:21→20:32)
--- NOTE | 2019-08-16 09:18 | XRay Report ---
CLINICAL INFORMATION: SOB COMPARISON: 08/15/2019 FINDINGS: Bilateral perihilar infiltrates show marked improved aeration compared to yesterday. There is moderate patchy residual. Small bilateral pleural effusions appreciated. Mild cardiomegaly is stable. Mediastinum and pulmonary vessels are normal. IMPRESSION: Considerable improvement in moderate perihilar/basilar infiltrates since yesterday. Interpreted and Authenticated by: Juma Zavala 08/16/19
[2019-08-16] MEDS: BUDESONIDE 0.5 MG/2 ML AMPUL.NEB NEB SCH ×2 (09:36→19:32)
--- NOTE | 2019-08-16 09:59 | Nephrology Consult Note ---
History of Present Illness - Reason for Consult Patient information: Note initiated : 08/16/19 at 9:54 am Patient: Mat Elam 78 y/o M admitted on 08/13/19 for cough, elevated HR. Consult date: 08/16/19 acute renal failure, hyponatremia, metabolic acidosis Requesting physician: Héctor Wick - Chief Complaint Cough - History of Present Illness Mat Elam is a 78 year old male with a history of COPD/bronchiectasis presented to the ER with progressive dyspnea over the last 2-1/2 weeks along with yellow productive sputum and admitted for Afib RVR/bilateral pneumonia. He has no history of kidney disease. Nephrology consultation requested for acute kidney injury. He did not have NSAIDs or IV contrast recently. He is not oliguric but there was a decrease in urine output in the past 24 hours. He has been hypote nsive requiring IV pressors. Review of Systems Constitutional: lethargy, weakness Nose, mouth and throat: no nasal congestion, no sore throat Cardiovascular: dyspnea on exertion, no chest pain Respiratory: cough, dyspnea Gastrointestinal: no abdominal pain, no diarrhea Genitourinary: no dysuria, no hematuria Musculoskeletal: no back pain, no neck pain Integumentary: no rash, no wounds Neurological: no confusion, no focal weakness Psychiatric: no anxiety, no panic attacks Endocrine: no cold intolerance, no heat intolerance Hematologic/Lymphatic: no easy bleeding, no easy bruising Allergic/Immunologic: no tongue swelling, no uticaria Past History Past medical history: Medical History (Last Reviewed 06/15/19 @ 15:07 by Jeb Ceballos MD) Nocturnal hypoxia (Acute) Pulmonary HTN (Chronic) Bronchiectasis (Chronic) Gastroesophageal reflux disease (Chronic) Bullous emphysema (Chronic) Kidney disease, chronic, stage III (GFR 30-59 ml/min) (Chronic) Spondylosis, lumbar, with myelopathy (Chronic) Bronchitis, chronic obstructive (Chronic) Arthritis (Chronic) Lumbago (Chronic) Actinic keratosis (Chronic) Lateral epicondylitis of both elbows (Chronic) Medial epicondylitis (Chronic) Nicotine dependence (Chronic) Osteoarthritis (Chronic) Pure hypercholesterolemia (Chronic) CKD (chronic kidney disease), stage II (Chronic) COPD (chronic obstructive pulmonary disease) (Chronic) Poor dentition (Chronic) Left sided chest pain (Chronic) Systolic murmur (Chronic) Pneumatocele of lung (Chronic) Avulsion of skin of finger (Chronic) Loss of teeth due to extraction (Acute) Emphysema/COPD (Chronic) Past surgical history: Past Surgical History (Last Reviewed 06/15/19 @ 15:07 by Jeb Ceballos MD) History of arthroscopy of knee (Chronic ~1987) History of nasal surgery (Chronic) Past family history: Family History (Last Reviewed 06/15/19 @ 15:07 by Jeb Ceballos MD) Mother Heart disease Father Prostate cancer Liver cancer Sister Cancer Unknown Thyroid disease Breast cancer Diabetes mellitus Past social history: Former smoker Medications and Allergies Home Medications Medication Instructions Recorded Confirmed Type lisinopril 10 mg tablet 10 mg PO QDAY 09/18/17 08/13/19 History omeprazole 20 mg capsule,delayed 20 mg PO .COMPLEX 09/18/17 08/13/19 History release simvastatin 10 mg tablet 10 mg PO QDAY tab 01/31/18 08/13/19 History 2 liters oxygen at night 1 dose .ROUTE QHS #1 ea 12/26/18 08/13/19 History Cranberry 400 mg PO DAILY 08/13/19 08/13/19 History Gelatin [Gelfilm] 1 tab PO DAILY 08/13/19 08/13/19 History Turmeric Root Extract [Turmeric] 1 tab PO DAILY 08/13/19 08/13/19 History Vitamin D3 1,000 unit PO DAILY 08/13/19 08/13/19 History Allergies Allergy/AdvReac Type Severity Reaction Status Date / Time No Known Drug Allergies Allergy Verified 06/15/19 14:27 Exam - Vital Signs Vital signs: Temp Pulse Resp BP Pulse Ox 97.9 F 66 23 H 135/79 99 08/16/19 08:00 08/15/19 12:21 08/16/19 09:14 08/16/19 09:00 08/16/19 09:00 - General Appearance General appearance: appears started age, fatigue EENT: mucous membranes moist Neck: supple Respiratory: rales Cardiology: no edema Gastrointestinal: no tenderness Integumentary: warm and dry Neurologic: no focal deficit, alert and oriented x3 Musculoskeletal: no deformities Psychiatric: mood/affect appropriate, cooperative Results - Lab Results 08/16/19 04:40 08/16/19 04:40 Most recent lab results Calcium 8.5 mg/dl (8.6-10.4) L 08/16/19 04:40 Phosphorus 6.3 mg/dL (2.7-4.5) H* 08/16/19 04:40 Magnesium 2.0 mg/dL (1.6-2.5) 08/16/19 04:40 Assessment and Plan (1) Acute kidney failure with tubular necrosis Mat Elam is a 78 year old male with a history of COPD/bronchiectasis presented to the ER with progressive dyspnea over the last 2-1/2 weeks along with yellow productive sputum and admitted for Afib RVR/bilateral pneumonia. He has no history of kidney disease. Nephrology consultation requested for acute kidney injury. He did not have NSAIDs or IV contrast recently. He is not oliguric but there was a decrease in urine output in the past 24 hours. He has been hypote nsive requiring IV pressors. Acute kidney injury, suspected acute tubular necrosis associated with shock with metabolic acidosis and hyponatremia. There is no recent history of IV contrast administration or NSAID use. There is no recent history of IV contrast administration. Acute interstitial nephritis, acute postinfectious nephropathy and/or acute toxic nephropathy due to medications considered. Work up: No urinalysis No renal imaging. Progress: Serum creatinine increased from 1.0 to 2.9 in the past 24 hours. Urine output: 2600 ml reported in the past 24 hours. Metabolic acidosis. Hyponatremia. No fluid overload. No uremic symptoms. Recommendations/Plan: No urgent acute hemodialysis need, but possible need anticipated and discussed with the patient. Work up with renal US, urinalysis ordered. Avoid NSAIDs, nephrotoxic medications and IV contrast. Monitor BMP and urine output. Sodium Bicarbonate 1300 mg PO BID for metabolic acidosis. Status: Acute Priority: High
--- NOTE | 2019-08-16 11:39 | Internal Med Progress Note ---
Medical - PN: Subj Patient information: Note initiated : 08/16/19 at 11:36 am Service Date, if different from initiated Date: [] Patient: Mat Elam a 78 y/o M admitted on 08/13/19 for cough, elevated HR. Chief Complaint: [] Interval history: Mr. 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 Symptoms progressed to the point patient could barely function. Shortness of breath progressed from maximal exertion to minimal activity. He also has been experiencing chest fluttering sensation over the last couple of days. With increasing concerns he presents to the ER. Initial work-up was consistent with A. fib RVR/bilateral pneumonia. Patient was started on antibiotic coverage. Hospitalist service was consulted. Of the evaluation patient is accompanied with his . He was able to answer most of the questions. He denies headache photophobia but endorses to increasing yellow productive sputum/increasing dyspnea and symptoms as above. He denies diarrhea, dysuria, abdominal pain, chest pain, diaphoresis. He recently had a aspiration episode on a pill with spells of coughing and eventually was able to cough out the pill but feels that his symptoms has worsens since that day. He denies sick contact. He endorses recent travel to [place] for ice fishing a week ago. 08/13-patient doing better however had a rough night but was unable to sleep. Rate controlled around 110 requiring intermittent diltiazem boluses. On ant ibiotic coverage. White count at 14.3, sputum culture pending. Afebrile. Ongoing physical therapy. Tolerating diet. 08/14-persistent RVR requiring diltiazem drip in addition metoprolol 25 twice da garth. Patient developed bradycardia and hypotension after transiently converting to sinus. A flutter with forced to 1/5-1 block. Systolics 60s. Glucagon ordered and discontinued diltiazem drip. Glucagon drip started along with nor epi drip. 1/2 L fluid bolus challenge. Following initial intervention systolics improved to mid 80s. Patient less symptomatic. Continue ICU monitoring. Initial blood culture gram-positive cocci. Surveillance cultures negative so far. X-ray chest worsening chest infiltrates/pneumonia. Sputum gram-positive cocci. Patient critically ill with deteriorating respiratory status/pneumonia and sepsis. White count 19.6. 3/19-creatinine elevation to 2.9. On vasopressors for septic shock. White count 20.7. GPC bacteremia now determined is contaminant. ID consulted. Central venous access today. Nephrology consulted. Close I/O monitoring/avoid nephrotoxins. Continue antibiotic coverage and de-escalate based on ID recommendations. Phosphorus 6.3. Rate controlled on amiodarone - Constitutional Vitals: Vital Signs Temp Pulse Resp BP Pulse Ox 97.9 F 66 24 H 152/124 99 08/16/19 08:00 08/15/19 12:21 08/16/19 10:00 08/16/19 10:00 08/16/19 10:00 Period Temp Pulse Resp BP Sys/Olivares Pulse Ox Last 24 Hr 97.9 F-98.9 F 44-66 14-39 59-170/46-147 85-100 Intake and Output 08/15/19 08/16/19 08/16/19 21:59 05:59 13:59 Intake Total 420 430 383 Output Total 150 0 100 Balance 270 430 283 Weight 172 lb 12.8 oz Intake & Output: Intake & Output 08/15/19 08/16/19 08/16/19 21:59 05:59 13:59 Intake Total 420 430 383 Output Total 150 0 100 Balance 270 430 283 Weight 172 lb 12.8 oz Intake: IV 110 23 Cordarone 300 mg In Dextrose 5% 23 in Water 50 ml @ 56 mls/hr IV ONCE ONE Rx#:[id number] Levophed 16 mg In Sodium 110 Chloride 0.9% 234 ml @ 10 MCG/ MIN 9.375 mls/hr IV Q24H [facility] Rx #:[id number] Oral 420 320 360 Output: Void Amount 150 0 100 Other: Meal Dinner Breakfast Percent of Meal Consumed 75% 100% Urine Appearance Clear Urine Color Dark Yellow Stool Size Large Stool Color Brown Stool Consistency Soft # of times incontinent of 1 Bowels Medical - PN: Obj Da - Labs CBC & Chem 7: 08/16/19 04:40 08/16/19 04:40 Labs: Abnormal Lab Results 08/16/19 08/16/19 08/15/19 04:40 04:40 15:48 WBC 20.7 H RBC 3.82 L Hgb 12.0 L Hct 36.9 L Plt Count [place] % (Auto) [place] # (Auto) Seg Neutrophils % Lymphocytes % 7 L Monocytes % (Manual) 18 H VBG Lactic Acid 2.8 H Sodium 131 L Chloride Carbon Dioxide 18 L Anion Gap 17.0 H BUN 42 H Creatinine 2.9 H Glucose 147 H Uric Acid 8.7 H Calcium 8.5 L Phosphorus 6.3 H* AST 53 H ALT 55 H Lactate Dehydrogenase 259 H Albumin/Globulin Ratio 0.8 L Albumin 3.0 L 08/15/19 08/15/19 08/14/19 04:24 04:24 05:15 WBC 19.6 H RBC 3.91 L Hgb 12.0 L Hct 37.8 L Plt Count [place] % (Auto) [place] # (Auto) Seg Neutrophils % 80 H Lymphocytes % 8 L Monocytes % (Manual) VBG Lactic Acid Sodium 130 L Chloride 95 L Carbon Dioxide 20 L Anion Gap BUN Creatinine Glucose 165 H 129 H Uric Acid Calcium Phosphorus AST ALT Lactate Dehydrogenase Albumin/Globulin Ratio 0.9 L Albumin 08/14/19 08/13/19 08/13/19 05:15 13:00 13:00 WBC 14.3 H 11.7 H RBC 3.90 L 4.09 L Hgb 12.1 L 12.6 L Hct 38.5 L Plt Count 449 H [place] % (Auto) 12.1 H [place] # (Auto) 1.41 H Seg Neutrophils % Lymphocytes % 14 L Monocytes % (Manual) VBG Lactic Acid Sodium Chloride Carbon Dioxide Anion Gap BUN Creatinine Glucose 126 H Uric Acid Calcium Phosphorus AST ALT Lactate Dehydrogenase Albumin/Globulin Ratio Albumin Meds: Medications Acetaminophen (Tylenol) 650 mg PO Q4-6HP PRN; Protocol PRN Reason: Per Pain Protocol/Fever > 101 Albuterol/Ipratropium (Duoneb) 3 ml NEB Q4HP PRN PRN Reason: Shortness Of Breath Last Admin: 08/15/19 09:16 Dose: 3 ml Documented by: Bisacodyl (Dulcolax) 10 mg OH Q2-3DAYS PRN PRN Reason: Constipation Budesonide (Pulmicort) 0.5 mg NEB Q12 ISABELA Last Admin: 08/16/19 09:36 Dose: Not Given Documented by: Cefepime HCl (Maxipime) 2 gm IV Q8H ISABELA; Protocol Last Admin: 08/16/19 07:24 Dose: 2 gm Documented by: Docusate Sodium (Colace) 100 mg PO BID [facility] Last Admin: 08/16/19 08:20 Dose: 100 mg Documented by: Heparin Sodium (Porcine) (Heparin) 5,000 unit SQ Q12 [facility] Last Admin: 08/16/19 08:21 Dose: 5,000 unit Documented by: Acetaminophen (Ofirmev) 650 mg in 65 mls @ 130 mls/hr IV Q6HP PRN; Protocol PRN Reason: Per Pain Protocol/Fever > 101 Magnesium Sulfate (Magnesium Sulfate) 2 gm in 50 mls @ 50 mls/hr IV UD PRN PRN Reason: MG = or < 1.7 Potassium Chloride 40 meq/ (Dextrose) 520 mls @ 130 mls/hr IV UD PRN PRN Reason: K+ = or < 3.5 Vancomycin HCl 1,500 mg/ (Sodium Chloride) 500 mls @ 333.3 mls/hr IV Q24H [facility] Last Infusion: 08/15/19 12:28 Dose: Infused Documented by: Norepinephrine Bitartrate 16 (mg/ Sodium Chloride) 250 mls @ 9.375 mls/hr IV Q24H [facility]; Protocol Last Titration: 08/16/19 02:25 Dose: 10 mcg/min, 9.375 mls/hr Documented by: Sodium Chloride (Sodium Chloride 0.9%) 250 mls @ 20 mls/hr IV .[id number] [facility] Last Admin: 08/16/19 02:22 Dose: Not Given Documented by: Iron Carb/Multivit/Store Host/Folic Acid (Multivitamin W/Minerals) 1 tab PO DAILY [facility] Last Admin: 08/16/19 08:20 Dose: 1 tab Documented by: Lisinopril (Zestril) 10 mg PO QDAY [facility] Last Admin: 08/16/19 08:20 Dose: 10 mg Documented by: Melatonin (Melatonin 3mg Tablet) 3 mg PO HSP PRN PRN Reason: Insomnia Omeprazole (Prilosec) 20 mg PO [id number] [facility] Last Admin: 08/15/19 07:18 Dose: 20 mg Documented by: Ondansetron HCl (Zofran Odt) 4 mg SL Q4-6HP PRN; Protocol PRN Reason: Nausea And Vomiting Ondansetron HCl (Zofran) 4 mg IV Q4-6HP PRN; Protocol PRN Reason: Nausea And Vomiting Polyethylene Glycol (Miralax) 17 gm PO DAILYP PRN PRN Reason: Constipation Potassium Chloride (Klor-Con) 40 meq PO DAILYP PRN PRN Reason: K+ < 3.5 Senna/Docusate Sodium (Senna Plus Tablet) 1 tab PO HS [facility] Last Admin: 08/15/19 21:43 Dose: 1 tab Documented by: Simvastatin (Zocor) 10 mg PO QDAY [facility] Last Admin: 08/16/19 08:21 Dose: 10 mg Documented by: Sodium Bicarbonate (Sodium Bicarbonate) 1,300 mg PO BID [facility] Sodium Chloride (Saline Flush) 10 ml IV Q8 [facility] Last Admin: 08/16/19 07:24 Dose: 10 ml Documented by: Thiamine HCl (Vitamin B1) 100 mg PO DAILY [facility] Last Admin: 08/16/19 08:20 Dose: 100 mg Documented by: Vancomycin HCl (Vancomycin Per Pharmacy) 1 order IV UD [facility]; Protocol Medical - PN: A/P - Time Spent With Patient Total time spent is greater than 50% in coordination of care (as documented) at patient's floor/unit and/or counseling patient: Greater than 35 minutes (Critical care time) (1) Atrial fibrillation with RVR Status: Acute Assessment and plan: * Bilateral pneumonia clinically worsening on imaging. Extend antibiotic coverage to include anaerobes * Septic shock currently on vasopressors. Leukocytosis 20.7. Evidence of endorgan failure with ANUPAMA/a flutter RVR. Continue antibiotic coverage to cefepime/vancomycin and de-escalate based on ID recommendations * A flutter with RVR not responding to conventional treatment. On amiodarone load in light of septic shock * GPC bacteremia intermittent contaminant * Decompensated heart failure-held diuresis( hypotension). Echo ef 40-45% * COPD exacerbation-history of emphysema/bronchiectasis. Continue bronchodilators/steroids/pulmonary toilet. Antibiotic coverage * History of hypertension continue lisinopril * Hyperlipidemia continue statin * GERD continue PPI * Full code * Prophylaxis heparin Plan * Continue critical care * Central venous access * Continue vasopressors * Son and family aware of prognosis * Bronchodilators/steroids/pulmonary toilet/oxygen * PT OT nutrition support * pre-existing medical condition management on home meds Current Visit: Yes
[2019-08-16] MEDS ORDERED: 0.9 % SODIUM CHLORIDE 10 ML SYRINGE IV PRN (12:13)
--- NOTE | 2019-08-16 12:31 | Ultrasound Report ---
CLINICAL INFORMATION: Acute kidney injury COMPARISON: None. FINDINGS: Both kidneys are normal and symmetric in size, position, configuration and echotexture: The right is 11 x 5 cm and the left is 10 x 6 6.5 cm. There are no stones, cysts or solid lesions. No evidence of hydronephrosis. Arterial blood flow is grossly normal to both kidneys on color Doppler. Urinary bladder volume is 188 cc. patient was unable to void. No focal bladder lesions. Incidental note made of small right pleural effusion. There is also a 10 mm stone in the gallbladder with mild gallbladder wall thickening IMPRESSION: Both kidneys and urinary bladder are normal. Cholelithiasis. Wall thickening of the gallbladder is suggestive of associated cholecystitis Interpreted and Authenticated by: Juma Zavala 08/16/19
[2019-08-16] MEDS: VANCOMYCIN 1,500 MG in 0.9 % SODIUM CHLORIDE 500 ML IV SCH (13:21)
[2019-08-16] MEDS: SODIUM BICARBONATE 650 MG TABLET PO SCH ×2 (13:25→20:32)
--- NOTE | 2019-08-16 14:08 | XRay Report ---
CLINICAL INFORMATION: PICC PLACEMENT COMPARISON: 08/16/1999 2057 hours FINDINGS: Left PICC line tip overlies the SVC/RA junction. The heart is mildly enlarged, but unchanged. Mediastinum and pulmonary vessels are normal. Moderate perihilar infiltrates are unchanged from this morning. IMPRESSION: PICC line in satisfactory position. Moderate vague perihilar infiltrates, more prominent the right, are unchanged from this morning Interpreted and Authenticated by: Juma Zavala 08/16/19
[2019-08-16] MEDS ORDERED: AMIODARONE HCL 200 MG TABLET PO SCH (17:30)
--- NOTE | 2019-08-16 18:12 | Infectious Disease Consult ---
History of Present Illness Patient information: Note initiated : 08/16/19 at 5:39 pm Service Date, if different from initiated Date: [] Patient: Mat Elam 78 y/o M admitted on 08/13/19 for cough, elevated HR. Chief Complaint: [] Consult date: 08/16/19 Requesting Physician: Héctor Wick Reason for Consult: GPC bacteremia Chief complaint: shortness of breath History of present illness: 78 year old man with PMHx of emphysema (in f/u with Dr Ceballos) and bronchiectasis admitted to [facility] on 08/12 with worsening shortness of breath. According to pt he went to [place] on 08/02 and was there at 08/08. He noticed fluttering of chest along with acute onset shortness of breath there. Following which he came to [facility]. He was found to have a HR around 170, irregularly irregular consistent with Afib and RVR. He denied any fever, chills, n/v, diarrhea, headache, chest pain, bellly pain, sick contacts. Admission WBC was 11.7 with normal PMNs. CXR showed b/l infiltrates. Blood Cx x 2 sets sent and patient was started on IV Ceftriaxone and IV Azithromycin. Afib managed with diltiazem. Pt dropped his BP on 08/14 with drop in UOP, needing initiation of vasopressors. Repeat blood Cx sent on 08/14, with blood Cx from 08/12 showing GPC in 1/2 sets. Pt;s Cr worsened to 2.9. Nephrology was consulted. Pt has been on IV Vanc, IV Ceftriaxone since 08/14. WBC trended to 20k today. At time of visit today, pt reported feeling some better. Endorsed cough with pinkish sputum. He mentioned that he uses O2 at night at home. He confirmed above Hx. Denied any travel Hx other than above. Review of Systems All systems PM: reviewed and no additional remarkable complaints except as stated Constitutional: as per HPI Past History Past social history: lives in [place], [place] Medications and Allergies Home Medications Medication Instructions Recorded Confirmed Type lisinopril 10 mg tablet 10 mg PO QDAY 09/18/17 08/13/19 History omeprazole 20 mg capsule,delayed 20 mg PO .COMPLEX 09/18/17 08/13/19 History release simvastatin 10 mg tablet 10 mg PO QDAY tab 01/31/18 08/13/19 History 2 liters oxygen at night 1 dose .ROUTE QHS #1 ea 12/26/18 08/13/19 History Cranberry 400 mg PO DAILY 08/13/19 08/13/19 History Gelatin [Gelfilm] 1 tab PO DAILY 08/13/19 08/13/19 History Turmeric Root Extract [Turmeric] 1 tab PO DAILY 08/13/19 08/13/19 History Vitamin D3 1,000 unit PO DAILY 08/13/19 08/13/19 History Allergies Allergy/AdvReac Type Severity Reaction Status Date / Time No Known Drug Allergies Allergy Verified 06/15/19 14:27 Physical Examination Vital signs: Temp Pulse Resp BP Pulse Ox 37.3 C H 66 26 H 126/50 97 08/16/19 16:01 08/15/19 12:21 08/16/19 17:00 08/16/19 17:00 08/16/19 17:00 General appearance: alert, appears uncomfortable Eyes pulmonary: nonicteric ENT: oropharynx moist Auscultation: bilateral: clear (occasional crackles at bases) Cardiovascular: irregular rhythm Gastrointestinal: normoactive bowel sounds, non-tender, non-distended Integumentary: normal Extremities: no edema normal mental status, non-focal exam Results - Laboratory Findings CBC and BMP: 08/16/19 04:40 08/16/19 04:40 Abnormal lab findings: Abnormal Labs 08/13/19 08/13/19 08/14/19 13:00 13:00 05:15 WBC 11.7 H 14.3 H RBC 4.09 L 3.90 L Hgb 12.6 L 12.1 L Hct 38.5 L Plt Count 449 H [place] % (Auto) 12.1 H [place] # (Auto) 1.41 H Seg Neutrophils % Lymphocytes % 14 L Monocytes % (Manual) VBG Lactic Acid Sodium Chloride Carbon Dioxide Anion Gap BUN Creatinine Glucose 126 H Uric Acid Calcium Phosphorus AST ALT Lactate Dehydrogenase Albumin/Globulin Ratio Albumin 08/14/19 08/15/19 08/15/19 05:15 04:24 04:24 WBC 19.6 H RBC 3.91 L Hgb 12.0 L Hct 37.8 L Plt Count [place] % (Auto) [place] # (Auto) Seg Neutrophils % 80 H Lymphocytes % 8 L Monocytes % (Manual) VBG Lactic Acid Sodium 130 L Chloride 95 L Carbon Dioxide 20 L Anion Gap BUN Creatinine Glucose 129 H 165 H Uric Acid Calcium Phosphorus AST ALT Lactate Dehydrogenase Albumin/Globulin Ratio 0.9 L Albumin 08/15/19 08/16/19 08/16/19 15:48 04:40 04:40 WBC 20.7 H RBC 3.82 L Hgb 12.0 L Hct 36.9 L Plt Count [place] % (Auto) [place] # (Auto) Seg Neutrophils % Lymphocytes % 7 L Monocytes % (Manual) 18 H VBG Lactic Acid 2.8 H Sodium 131 L Chloride Carbon Dioxide 18 L Anion Gap 17.0 H BUN 42 H Creatinine 2.9 H Glucose 147 H Uric Acid 8.7 H Calcium 8.5 L Phosphorus 6.3 H* AST 53 H ALT 55 H Lactate Dehydrogenase 259 H Albumin/Globulin Ratio 0.8 L Albumin 3.0 L Microbiology: Microbiology 08/14/19 09:21 Sputum - Expectorated Gram Stain - Final 08/14/19 09:21 Sputum - Expectorated Sputum Culture - Final 08/14/19 14:25 Blood Blood Culture - Preliminary 08/14/19 14:19 Blood Blood Culture - Preliminary 08/13/19 14:10 Blood Blood Culture - Preliminary 08/13/19 14:07 Blood Blood Culture - Preliminary Gram positive cocci 08/13/19 20:00 Nose - Both Right and Left MRSA (PCR) - Final Assessment and Plan - Narrative A/P Narrative: A: 1. Acute Afib with RVR - precipitated by trip to higher altitude and hypoxia - currently around 130s - not associated with acute TX 2. Acute heart failure with pulmonary edema: resolving. - sec to acute Afib with RVR. - likely responsible for b/l infiltrates - on room air this evening 3. ANUPAMA: resolving: UOP picking up - sec to low cardiac output 4. Shock: seems sec to (2) - off pressors as of today 5. Contaminant on blood Cx: 06/02 bottles on 08/12 +ve for Staph simulans, with repeat blood Cx from 08/14 neg 6. Leucocytosis: probably sec to cholecystitis (seen on US today) - absence of fever, improving O2 req, CXR getting better, coming off pressors do not suggest worsening pneumonia, instead suggests improvement. I think it is ok to broaden gram neg coverage for cholecystitis while trending WBCs to come down. Recommendations: - Stop IV Vanc and IV Cefepime - Pt doesnot meet criteria for COVID 19 testing - Start IV Zosyn 2.25 gm q6 hrs. consult surgery if WBC worsen. - Afib management per primary team - f/u sputum Cx will follow Jeff Ingram MD Infectious diseases
[2019-08-16] MEDS: SENNOSIDES/DOCUSATE SODIUM 1 TAB TABLET PO SCH (20:33)
[2019-08-16] MEDS: AMIODARONE HCL 200 MG TABLET PO SCH (20:33)
[2019-08-16 22:13] LABS: Appearance,Urine HAZY; Bacteria,Urine 0 /hpf (0); Bilirubin,Urine NEG (NEG); Color,Urine YELLOW; Culture Indicated,Urine NO; Glucose,Urine (UA) NEGATIVE (NEG); Ketones,Urine NEG (NEG); Leukocyte Esterase,Urine 250 /uL (NEG); Mucus,Urine FEW /hpf (0); Nitrate,Urine NEG (NEG); Protein,Urine 30 mg/dL (NEG); Specific Gravity,Urine 1.009 (1.000-1.035); Urine Blood 0.03 mg/dL (<0.03); Urine RBC 2 /hpf (0-1); Urine Squamous Epithelial Cell 0 /hpf (0-4); Urine Transitional Epi Cells < 1 /hpf (0-2); Urine WBC 9 /hpf (0-4); Urobilinogen,Urine NEG (NEG)
[2019-08-17] MEDS: 0.9 % SODIUM CHLORIDE 250 ML IV SCH ×2 (03:47→16:11)
[2019-08-17] MEDS: 0.9 % SODIUM CHLORIDE 10 ML SYRINGE IV SCH ×3 (05:12→16:15)
[2019-08-17 06:03] LABS: Hematocrit 33.3 % (40.1-51.0); Hemoglobin 10.8 g/dL (13.7-17.5); Mean Cell Volume 95.7 fL (80.0-100.0); Mean Corpuscular HGB Conc 32.4 g/dL (31.0-36.0); Mean Platelet Volume 9.1 fL (7.4-10.4); Platelet Count 333 K/mcL (140-440); RBC 3.48 M/mcL (4.63-6.08); Red Cell Distribution Width 14.2 % (11.5-14.5); WBC 13.5 K/mcL (4.50-11.00)
--- NOTE | 2019-08-17 06:16 | Nephrology Progress Note ---
Subjective Patient information: Note initiated : 08/17/19 at 6:13 am Patient: Mat Elam 78 y/o M admitted on 08/13/19 for cough, elevated HR. Chief Complaint: Weakness Pertinent ROS: Weakness Cough Objective - Vital Signs Vital signs: Vital Signs Temp Resp BP Pulse Ox 08/17/19 05:00 20 109/74 96 08/17/19 04:00 97.6 F 21 101/72 96 08/17/19 03:00 19 99/74 95 08/17/19 02:00 24 H 105/76 97 08/17/19 01:00 20 94/70 96 08/17/19 00:01 97.4 F 23 H 110/79 97 08/16/19 23:16 26 H 107/79 96 08/16/19 23:01 21 97/85 95 08/16/19 22:46 22 101/81 95 08/16/19 22:31 21 104/74 95 08/16/19 22:16 23 H 110/74 95 08/16/19 22:01 21 108/83 95 08/16/19 21:46 30 H 111/80 96 08/16/19 21:31 23 H 113/79 95 08/16/19 21:16 29 H 115/84 97 08/16/19 21:01 30 H 120/81 96 08/16/19 20:46 28 H 122/85 97 08/16/19 20:31 24 H 113/83 97 08/16/19 20:16 23 H 113/81 97 08/16/19 20:01 98.7 F 28 H 114/86 97 08/16/19 20:00 24 H 98 08/16/19 19:48 36 H 108/88 98 08/16/19 19:31 23 H 114/86 08/16/19 19:16 22 116/83 99 08/16/19 19:01 30 H 113/90 98 08/16/19 18:46 24 H 122/83 91 08/16/19 18:31 32 H 118/85 98 08/16/19 18:16 114/84 97 08/16/19 18:01 113/82 98 08/16/19 17:00 26 H 126/50 97 08/16/19 16:46 26 H 112/84 97 03/19/20 16:31 26 H 121/93 97 08/16/19 16:16 26 H 118/87 98 08/16/19 16:01 99.1 F H 27 H 120/75 98 08/16/19 15:01 29 H 115/75 98 08/16/19 14:01 34 H 125/76 08/16/19 13:46 24 H 138/88 100 08/16/19 13:16 22 98 08/16/19 13:15 31 H 144/86 97 08/16/19 13:00 22 130/91 98 08/16/19 12:45 24 H 131/91 98 08/16/19 12:30 27 H 136/95 100 08/16/19 12:15 22 134/94 99 08/16/19 12:00 97.8 F 28 H 121/87 99 08/16/19 11:45 24 H 128/93 99 08/16/19 11:30 26 H 121/94 100 08/16/19 11:15 21 121/89 100 08/16/19 11:00 24 H 124/85 100 08/16/19 10:45 19 122/89 100 08/16/19 10:00 24 H 152/124 99 08/16/19 09:14 23 H 08/16/19 09:00 26 H 135/79 99 08/16/19 08:05 36 H 08/16/19 08:00 97.9 F 36 H 125/79 94 08/16/19 07:54 27 H 98 08/16/19 07:45 19 118/69 97 08/16/19 07:31 29 H 124/69 96 08/16/19 07:16 22 111/63 96 08/16/19 07:01 27 H 126/63 97 08/16/19 06:31 22 125/69 99 Intake and Output 08/16/19 08/17/19 08/17/19 21:59 05:59 13:59 Intake Total 900 300 Output Total 375 Balance 900 -75 Intake: Oral 900 300 Output: Void Amount 375 Other: Urine Appearance Clear Urine Color Bright Yellow Urine Odor Normal Stool Size Moderate Stool Color Brown Stool Consistency Liquid Loose # Voids 1 Weight 176 lb 9.6 oz Intake & Output: Intake & Output 08/16/19 08/17/19 08/17/19 21:59 05:59 13:59 Intake Total 900 300 Output Total 375 Balance 900 -75 Weight 176 lb 9.6 oz Intake: Oral 900 300 Output: Void Amount 375 Other: Urine Appearance Clear Urine Color Bright Yellow Urine Odor Normal Stool Size Moderate Stool Color Brown Stool Consistency Liquid Loose # Voids 1 - General Appearance General appearance: fatigue EENT: mucous membranes moist Neck: no JVD Respiratory: rales Cardiology: no edema Gastrointestinal: no tenderness Integumentary: warm and dry Neurologic: no focal deficit, alert and oriented x3 Musculoskeletal: no deformities Psychiatric: mood/affect appropriate, cooperative - Lab 08/17/19 05:00 08/17/19 05:00 Most recent lab results Calcium 8.5 mg/dl (8.6-10.4) L 08/16/19 04:40 Phosphorus 6.3 mg/dL (2.7-4.5) H* 08/16/19 04:40 Magnesium 2.0 mg/dL (1.6-2.5) 08/16/19 04:40 Assessment and Plan (1) Acute kidney failure with tubular necrosis Mat Elam is a 78 year old male with a history of COPD/bronchiectasis presented to the ER with progressive dyspnea over the last 2-1/2 weeks along with yellow productive sputum and admitted for Afib RVR/bilateral pneumonia. He has no history of kidney disease. Nephrology consultation requested for acute kidney injury. He did not have NSAIDs or IV contrast recently. He was not oliguric. He was hypotensive requiring IV pressors. Acute kidney injury, suspected acute tubular necrosis associated with shock with metabolic acidosis and hyponatremia. There is no recent history of IV contrast administration or NSAID use. There is no recent history of IV contrast administration. Acute interstitial nephritis, acute postinfectious nephropathy and/or acute toxic nephropathy due to medications considered. Work up: Urinalysis on 08/16/19: Yellow, hazy, pH 6.0, SG 1009, protein 30, blood 0.03, leukocyte esterase 250. Renal US on 08/16/19: Both kidneys and urinary bladder are normal. Progress: Serum creatinine increased from 2.9 to 4.2 in the past 24 hours. Urine output: 400 ml reported in the past 24 hours. Metabolic acidosis on Sodium Bicarbonate 1300 mg PO BID since 08/16/19. Hyponatremia, resolved. No fluid overload. No uremic symptoms. Recommendations/Plan: No urgent acute hemodialysis need, but possible need anticipated and discussed with the patient. Avoid NSAIDs, nephrotoxic medications and IV contrast. Monitor BMP and urine output. Status: Acute Priority: High
[2019-08-17 06:39] LABS: ALT/SGPT 44 U/l (0-40); AST/SGOT 35 U/l (0-37); Albumin 2.9 gm/dL (3.2-5.2); Albumin/Globulin Ratio 0.9 (1.0-2.3); Alkaline Phosphatase 58 U/L (39-117); Bilirubin,Direct < 0.2 mg/dL (0.0-0.3); Bilirubin,Total 0.3 mg/dL (0.0-1.0); Blood Urea Nitrogen 63 mg/dl (8-23); Calcium 8.5 mg/dl (8.6-10.4); Carbon Dioxide 20 mmol/L (22-30); Chloride 97 mmol/L (96-108); Globulin 3.3 gm/dL (2.2-3.7); Glomerular Filtration Rate 13; Glucose 93 mg/dL (70-105); Lactate Dehydrogenase 255 U/L (94-250); Phosphorous 6.4 mg/dL (2.7-4.5); Triglycerides 66 mg/dl (<150)
[2019-08-17 07:45] LABS: Eosinophils % (Manual) 2 % (0-7); Lymphocytes % 9 % (15-49); Monocytes % (Manual) 16 % (1-12); Platelet Estimate NORMAL (NORMAL); RBC Morphology NORMAL (NORMAL); Segmented Neutrophils % 73 % (38-78)
[2019-08-17] MEDS: CEFEPIME 2 GM VIAL IV SCH (07:50)
[2019-08-17] MEDS: OMEPRAZOLE 20 MG CAPSULE PO SCH (07:53)
[2019-08-17] MEDS: BUDESONIDE 0.5 MG/2 ML AMPUL.NEB NEB SCH (09:20)
[2019-08-17] MEDS ORDERED: PIPERACILLIN SODIUM/TAZOBACTAM 2.25 GM in DEXTROSE 5% IN WATER 50 ML IV SCH (09:45)
[2019-08-17] MEDS: DOCUSATE SODIUM 100 MG CAPSULE PO SCH (09:57)
[2019-08-17] MEDS: LISINOPRIL 10 MG TABLET PO SCH (10:30)
[2019-08-17] MEDS: SIMVASTATIN 10 MG TABLET PO SCH (10:30)
[2019-08-17] MEDS: MULTIVIT,THER IRON,CA,FA & MIN 1 TABLET PO SCH (10:30)
[2019-08-17] MEDS: HEPARIN 5,000 UNIT/ML VIAL SQ SCH (10:30)
[2019-08-17] MEDS: SODIUM BICARBONATE 650 MG TABLET PO SCH (10:30)
[2019-08-17] MEDS: THIAMINE 100 MG TABLET PO SCH (10:30)
[2019-08-17] MEDS: AMIODARONE HCL 200 MG TABLET PO SCH ×2 (10:30→16:15)
[2019-08-17] MEDS: NOREPINEPHRINE BITARTRATE 16 MG in 0.9 % SODIUM CHLORIDE 234 ML IV SCH (10:31)
--- NOTE | 2019-08-17 13:16 | General Surgery Consult Note ---
History of Present Illness Patient information: Note initiated : 08/17/19 at 1:14 pm Service Date, if different from initiated Date: [] Patient: Mat Elam 78 y/o M admitted on 08/13/19 for cough, elevated HR. Chief Complaint: [] Reason for consult: other (asymptomatic gallstones with slight thickening of gallbladder wall) Requesting physician: Héctor Wick History of present illness: 78-year-old male admitted on July 28 2 week history of increasing dyspnea on exertion and heart flutters. He was seen in the emergency room with finding of atrial fibrillation with rapid ventricular response with heart rate in the 170s. He had rate related decompensated congestive heart failure. He has been treated and heart rate is somewhat control though not optimized this time. Evaluation of his lungs revealed mild gallbladder wall thickening And a 10 mm stone. home close questioning the patient has not had any abdominal pain recently or remotely. He does not have nausea vomiting. He has not had any symptoms suggestive of biliary colic. He had minimal elevation of his AST and ALT. His pro calcitonin was less than 0.06. Based on these findings it is un likely that the patient has acute cholecystitis. He has inadvertent finding of gallstones in his gallbladder. The thickening of the gallbladder wall can be explained by hypoalbuminemia and some right heart failure which is not an infrequent finding in decompensated congestive heart failure. He is examined closely and he has no tenderness. Though he has had some leukocytosis. I do not feel that her leukocytosis is in any way related to cholecystitis. He should not need to have anything done urgently concerning his gallbladder. Review of Systems All systems PM: reviewed and no additional remarkable complaints except as stated (negative except as noted in HPI and below) - Cardiovascular irregular heart rhythm, lightheadedness, palpatations, rapid heart rate - Respiratory dyspnea on exertion, wheezing, chest congestion ( what is noted), other ( sleep apnea) - Musculoskeletal arthralgias, back pain, stiffness - Psychiatric anxiety - Hematologic/Lymphatic no easy bleeding, no easy bruising, no lymphadenopathy - Allergic/Immunologic no tongue swelling, no throat swelling, no uticaria, no wheezing, no lip swelling Past History Past medical history: Bullous emphysema with bronchiectasis. Gastroesophageal reflux disease. Chronic kidney disease with exacerbation. Pulmonary hypertension Past surgical history: Knee arthroscopy Past family history: Coronary artery disease. Liver cancer. Prostate cancer. Breast cancer. Diabetes mellitus Past social history: Past smoker 50 pack year Occasional alcohol use Medications and Allergies Home Medications Medication Instructions Recorded Confirmed Type lisinopril 10 mg tablet 10 mg PO QDAY 09/18/17 08/13/19 History omeprazole 20 mg capsule,delayed 20 mg PO .COMPLEX 09/18/17 08/13/19 History release simvastatin 10 mg tablet 10 mg PO QDAY tab 01/31/18 08/13/19 History 2 liters oxygen at night 1 dose .ROUTE QHS #1 ea 12/26/18 08/13/19 History Cranberry 400 mg PO DAILY 08/13/19 08/13/19 History Gelatin [Gelfilm] 1 tab PO DAILY 08/13/19 08/13/19 History Turmeric Root Extract [Turmeric] 1 tab PO DAILY 08/13/19 08/13/19 History Vitamin D3 1,000 unit PO DAILY 08/13/19 08/13/19 History Allergies Allergy/AdvReac Type Severity Reaction Status Date / Time No Known Drug Allergies Allergy Verified 06/15/19 14:27 Exam Temp Pulse Resp BP Pulse Ox 97.7 F 66 29 H 103/78 98 08/17/19 12:01 08/17/19 12:01 08/17/19 12:31 08/17/19 12:08/17/19 12:31 - General physical appearance well developed, well nourished, no distress, no pain - Eyes PERRL, normal ocular movement - ENT normal pinna, normal nares, normal mucosa, no hearing loss, no congestion - Head Head exam IM: Present: atraumatic, normocephalic - Neck no masses, no bruits, trachea midline, no lymphadenopathy, no venous distension - Cardiovascular Cardiovascular exam IM: Present: normal rate and rhythm, irregular rhythm, tachycardia - Respiratory normal expansion, normal respiratory effort, other (still with a few scattered rales but no wheezes) - Abdomen Abdomen: Present: soft, non tender (, no abdominal tenderness, especially in the upper abdomen with special attention to epigastrium and right upper quadrant), bowel sounds Hernia: Present: none - Genitourinary Present: normal penis with no external lesions - Integumentary Present: no rash, no growths, no abnormal pigmentation - Neurologic Present: normal coordination, normal sensation - Musculoskeletal Present: normal gait, normal posture - Psychiatric Present: oriented to time, oriented to person, oriented to place, speech is normal, memory intact Results - Labs 08/17/19 05:00 08/17/19 05:00 Abnormal lab results 08/16/19 08/17/19 08/17/19 Range/Units 21:30 05:00 05:00 WBC 13.5 H (4.50-11.00) K/mcL RBC 3.48 L (4.63-6.08) M/mcL Hgb 10.8 L (13.7-17.5) g/dL Hct 33.3 L (40.1-51.0) % Lymphocytes % 9 L (15-49) % Monocytes % (Manual) 16 H (1-12) % Carbon Dioxide 20 L (22-30) mmol/L BUN 63 H (8-23) mg/dl Creatinine 4.2 H (0.7-1.2) mg/dl Uric Acid 10.0 H (2.5-8.0) mg/dL Calcium 8.5 L (8.6-10.4) mg/dl Phosphorus 6.4 H* (2.7-4.5) mg/dL ALT 44 H (0-40) U/l Lactate Dehydrogenase 255 H (94-250) U/L Albumin 2.9 L (3.2-5.2) gm/dL Albumin/Globulin Ratio 0.9 L (1.0-2.3) Urine Protein 30 A (NEG) mg/dL Urine Occult Blood 0.03 A (<0.03) mg/dL Ur Leukocyte Esterase 250 A (NEG) /uL Urine RBC 2 H (0-1) /hpf Urine WBC 9 H (0-4) /hpf Diabetes panel 08/17/19 Range/Units 05:00 Sodium 133 (133-145) mmol/L Potassium 4.6 (3.3-5.1) mmol/L Chloride 97 (96-108) mmol/L Carbon Dioxide 20 L (22-30) mmol/L BUN 63 H (8-23) mg/dl Creatinine 4.2 H (0.7-1.2) mg/dl Glucose 93 (70-105) mg/dL Calcium 8.5 L (8.6-10.4) mg/dl AST 35 (0-37) U/l ALT 44 H (0-40) U/l Alkaline Phosphatase 58 (39-117) U/L Total Protein 6.2 (5.9-8.4) gm/dL Albumin 2.9 L (3.2-5.2) gm/dL Triglycerides 66 (<150) mg/dl Calcium panel 08/17/19 Range/Units 05:00 Calcium 8.5 L (8.6-10.4) mg/dl Phosphorus 6.4 H* (2.7-4.5) mg/dL Albumin 2.9 L (3.2-5.2) gm/dL Pituitary panel 08/17/19 Range/Units 05:00 Sodium 133 (133-145) mmol/L Potassium 4.6 (3.3-5.1) mmol/L Chloride 97 (96-108) mmol/L Carbon Dioxide 20 L (22-30) mmol/L BUN 63 H (8-23) mg/dl Creatinine 4.2 H (0.7-1.2) mg/dl Glucose 93 (70-105) mg/dL Calcium 8.5 L (8.6-10.4) mg/dl Adrenal panel 08/17/19 Range/Units 05:00 Sodium 133 (133-145) mmol/L Potassium 4.6 (3.3-5.1) mmol/L Chloride 97 (96-108) mmol/L Carbon Dioxide 20 L (22-30) mmol/L BUN 63 H (8-23) mg/dl Creatinine 4.2 H (0.7-1.2) mg/dl Glucose 93 (70-105) mg/dL Calcium 8.5 L (8.6-10.4) mg/dl Total Bilirubin 0.3 (0.0-1.0) mg/dL AST 35 (0-37) U/l ALT 44 H (0-40) U/l Alkaline Phosphatase 58 (39-117) U/L Total Protein 6.2 (5.9-8.4) gm/dL Albumin 2.9 L (3.2-5.2) gm/dL All other labs normal. Assessment and Plan (1) Cholelithiasis without cholecystitis The patient has documented cholelithiasis He does not have acute cholecystitis. The gallbladder wall thickening is probably related to right heart failure and hepatic congestion from the severe heart failure associated with his supraventricular tachycardia as well as a hypoalbuminemic state. There is no indication for intervention with regards to his gallbladder. The source of his leukocytosis is not related to the biliary tract. Status: Acute (2) Atrial fibrillation with rapid ventricular response Status: Acute (3) Congestive heart failure (CHF) Status: Acute (4) Chronic bullous emphysema Status: Acute (5) Gastroesophageal reflux disease Status: Acute (6) CRD (chronic renal disease), stage III Status: Acute (7) Pulmonary HTN Status: Chronic Comment: Right ventricular systolic pressure 46 in May 2017 by echo
--- NOTE | 2019-08-17 14:39 | Internal Med Progress Note ---
Medical - PN: Subj Patient information: Note initiated : 08/17/19 at 2:35 pm Service Date, if different from initiated Date: [] Patient: Mat Elam a 78 y/o M admitted on 08/13/19 for cough, elevated HR. Chief Complaint: [] Interval history: Mr. 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 Symptoms progressed to the point patient could barely function. Shortness of breath progressed from maximal exertion to minimal activity. He also has been experiencing chest fluttering sensation over the last couple of days. With increasing concerns he presents to the ER. Initial work-up was consistent with A. fib RVR/bilateral pneumonia. Patient was started on antibiotic coverage. Hospitalist service was consulted. Of the evaluation patient is accompanied with his . He was able to answer most of the questions. He denies headache photophobia but endorses to increasing yellow productive sputum/increasing dyspnea and symptoms as above. He denies diarrhea, dysuria, abdominal pain, chest pain, diaphoresis. He recently had a aspiration episode on a pill with spells of coughing and eventually was able to cough out the pill but feels that his symptoms has worsens since that day. He denies sick contact. He endorses recent travel to [place] for ice fishing a week ago. 08/13-patient doing better however had a rough night but was unable to sleep. Rate controlled around 110 requiring intermittent diltiazem boluses. On anti biotic coverage. White count at 14.3, sputum culture pending. Afebrile. Ongoing physical therapy. Tolerating diet. 08/14-persistent RVR requiring diltiazem drip in addition metoprolol 25 twice juana ly. Patient developed bradycardia and hypotension after transiently converting to sinus. A flutter with forced to 1/5-1 block. Systolics 60s. Glucagon ordered and discontinued diltiazem drip. Glucagon drip started along with nor epi drip. 1/2 L fluid bolus challenge. Following initial intervention systolics improved to mid 80s. Patient less symptomatic. Continue ICU monitoring. Initial blood culture gram-positive cocci. Surveillance cultures negative so far. X-ray chest worsening chest infiltrates/pneumonia. Sputum gram-positive cocci. Patient critically ill with deteriorating respiratory status/pneumonia and sepsis. White count 19.6. 08/15-creatinine elevation to 2.9. On vasopressors for septic shock. White count 20.7. GPC bacteremia now determined is contaminant. ID consulted. Central venous access today. Nephrology consulted. Close I/O monitoring/avoid nephrotoxins. Continue antibiotic coverage and de-escalate based on ID recommendations. Phosphorus 6.3. Rate controlled on amiodarone 08/16-patient in our acute renal failure with creatinine over 4. Nephrology on board. Likely ischemic ATN. Off pressors. Continues to be a flutter with RVR with rate around 130s to 140s. On amiodarone load. White count down to 13.5 from 20.7. Per surgery unlikely related to gallbladder cholecystitis. ID on board. Continue antibiotic coverage. - Constitutional Vitals: Vital Signs Temp Pulse Resp BP Pulse Ox 97.7 F 66 16 119/84 100 08/17/19 12:01 08/17/19 12:01 08/17/19 14:01 08/17/19 14:01 08/17/19 14:01 Period Temp Pulse Resp BP Sys/Olivares Pulse Ox Last 24 Hr 97 F-99.1 F 66 16-36 94-126/50-93 91-100 Intake and Output 08/17/19 08/17/19 08/17/19 05:59 13:59 21:59 Intake Total 300 50 Output Total 375 550 Balance -75 -500 Weight 176 lb 9.6 oz Patient Weight 08/18/19 05:59 Weight 176 lb 9.6 oz Intake & Output: Intake & Output 08/17/19 08/17/19 08/17/19 05:59 13:59 21:59 Intake Total 300 50 Output Total 375 550 Balance -75 -500 Weight 176 lb 9.6 oz Intake: IV 50 Zosyn 2.25 gm In Dextrose 5% in 50 Water 50 ml @ 100 mls/hr IV Q6H [facility] Rx#:[id number] Oral 300 Output: Void Amount 375 550 Other: Urine Appearance Clear Clear Urine Color Bright Yellow Bright Yellow Urine Odor Normal Strong Stool Size Moderate Stool Color Brown Stool Consistency Liquid Loose # Voids 1 # Bowel Movements 1 General appearance: no acute distress Exam: Alert oriented Nonlabored breathing No anxiety A flutter RVR on telemetry No lymphedema Medical - PN: Obj Da - Labs CBC & Chem 7: 08/17/19 05:00 08/17/19 05:00 Labs: Abnormal Lab Results 08/17/19 08/17/19 08/16/19 05:00 05:00 21:30 WBC 13.5 H RBC 3.48 L Hgb 10.8 L Hct 33.3 L Seg Neutrophils % Lymphocytes % 9 L Monocytes % (Manual) 16 H VBG Lactic Acid Sodium Chloride Carbon Dioxide 20 L Anion Gap BUN 63 H Creatinine 4.2 H Glucose Uric Acid 10.0 H Calcium 8.5 L Phosphorus 6.4 H* AST ALT 44 H Lactate Dehydrogenase 255 H Albumin/Globulin Ratio 0.9 L Albumin 2.9 L Urine Protein 30 A Urine Occult Blood 0.03 A Ur Leukocyte Esterase 250 A Urine RBC 2 H Urine WBC 9 H 08/16/19 08/16/19 08/15/19 04:40 04:40 15:48 WBC 20.7 H RBC 3.82 L Hgb 12.0 L Hct 36.9 L Seg Neutrophils % Lymphocytes % 7 L Monocytes % (Manual) 18 H VBG Lactic Acid 2.8 H Sodium 131 L Chloride Carbon Dioxide 18 L Anion Gap 17.0 H BUN 42 H Creatinine 2.9 H Glucose 147 H Uric Acid 8.7 H Calcium 8.5 L Phosphorus 6.3 H* AST 53 H ALT 55 H Lactate Dehydrogenase 259 H Albumin/Globulin Ratio 0.8 L Albumin 3.0 L Urine Protein Urine Occult Blood Ur Leukocyte Esterase Urine RBC Urine WBC 08/15/19 08/15/19 04:24 04:24 WBC 19.6 H RBC 3.91 L Hgb 12.0 L Hct 37.8 L Seg Neutrophils % 80 H Lymphocytes % 8 L Monocytes % (Manual) VBG Lactic Acid Sodium 130 L Chloride 95 L Carbon Dioxide 20 L Anion Gap BUN Creatinine Glucose 165 H Uric Acid Calcium Phosphorus AST ALT Lactate Dehydrogenase Albumin/Globulin Ratio 0.9 L Albumin Urine Protein Urine Occult Blood Ur Leukocyte Esterase Urine RBC Urine WBC Meds: Medications Acetaminophen (Tylenol) 650 mg PO Q4-6HP PRN; Protocol PRN Reason: Per Pain Protocol/Fever > 101 Albuterol/Ipratropium (Duoneb) 3 ml NEB Q4HP PRN PRN Reason: Shortness Of Breath Last Admin: 08/15/19 09:16 Dose: 3 ml Documented by: Amiodarone HCl (Cordarone) 200 mg PO TID [facility] Last Admin: 08/17/19 10:30 Dose: 200 mg Documented by: Bisacodyl (Dulcolax) 10 mg AL Q2-3DAYS PRN PRN Reason: Constipation Budesonide (Pulmicort) 0.5 mg NEB Q12 [facility] Last Admin: 08/17/19 09:20 Dose: Not Given Documented by: Docusate Sodium (Colace) 100 mg PO BID [facility] Last Admin: 08/17/19 09:57 Dose: Not Given Documented by: Heparin Sodium (Porcine) (Heparin) 5,000 unit SQ Q12 [facility] Last Admin: 08/17/19 10:30 Dose: 5,000 unit Documented by: Heparin Sodium (Porcine) (Heparin Flush) 2 ml IV Q12 [facility] Last Admin: 08/17/19 10:29 Dose: 2 ml Documented by: Acetaminophen (Ofirmev) 650 mg in 65 mls @ 130 mls/hr IV Q6HP PRN; Protocol PRN Reason: Per Pain Protocol/Fever > 101 Magnesium Sulfate (Magnesium Sulfate) 2 gm in 50 mls @ 50 mls/hr IV UD PRN PRN Reason: MG = or < 1.7 Potassium Chloride 40 meq/ (Dextrose) 520 mls @ 130 mls/hr IV UD PRN PRN Reason: K+ = or < 3.5 Norepinephrine Bitartrate 16 (mg/ Sodium Chloride) 250 mls @ 9.375 mls/hr IV Q24H [facility]; Protocol Last Admin: 08/17/19 10:31 Dose: Not Given Documented by: Sodium Chloride (Sodium Chloride 0.9%) 250 mls @ 20 mls/hr IV .[id number] [facility] Last Admin: 08/17/19 03:47 Dose: Not Given Documented by: Piperacillin Sod/Tazobactam (Sod 2.25 gm/ Dextrose) 50 mls @ 100 mls/hr IV Q6H [facility]; Protocol Last Infusion: 08/17/19 10:20 Dose: Infused Documented by: Iron Carb/Multivit/Lynn/Folic Acid (Multivitamin W/Minerals) 1 tab PO DAILY [facility] Last Admin: 08/17/19 10:30 Dose: 1 tab Documented by: Lisinopril (Zestril) 10 mg PO QDAY [facility] Last Admin: 08/17/19 10:30 Dose: 10 mg Documented by: Melatonin (Melatonin 3mg Tablet) 3 mg PO HSP PRN PRN Reason: Insomnia Omeprazole (Prilosec) 20 mg PO [id number] [facility] Last Admin: 08/17/19 07:53 Dose: 20 mg Documented by: Ondansetron HCl (Zofran Odt) 4 mg SL Q4-6HP PRN; Protocol PRN Reason: Nausea And Vomiting Ondansetron HCl (Zofran) 4 mg IV Q4-6HP PRN; Protocol PRN Reason: Nausea And Vomiting Polyethylene Glycol (Miralax) 17 gm PO DAILYP PRN PRN Reason: Constipation Potassium Chloride (Klor-Con) 40 meq PO DAILYP PRN PRN Reason: K+ < 3.5 Senna/Docusate Sodium (Senna Plus Tablet) 1 tab PO HS [facility] Last Admin: 08/16/19 20:33 Dose: 1 tab Documented by: Simvastatin (Zocor) 10 mg PO QDAY [facility] Last Admin: 08/17/19 10:30 Dose: 10 mg Documented by: Sodium Bicarbonate (Sodium Bicarbonate) 1,300 mg PO BID [facility] Last Admin: 08/17/19 10:30 Dose: 1,300 mg Documented by: Sodium Chloride (Saline Flush) 10 ml IV Q8 [facility] Last Admin: 08/17/19 05:12 Dose: 10 ml Documented by: Sodium Chloride (Saline Flush) 10 ml IV UD PRN PRN Reason: FLUSH Sodium Chloride (Saline Flush) 10 ml IV Q12 [facility] Last Admin: 08/17/19 10:31 Dose: 10 ml Documented by: Thiamine HCl (Vitamin B1) 100 mg PO DAILY [facility] Last Admin: 08/17/19 10:30 Dose: 100 mg Documented by: Medical - PN: A/P - Time Spent With Patient Total time spent is greater than 50% in coordination of care (as documented) at patient's floor/unit and/or counseling patient: 25 - 35 minutes (1) Atrial fibrillation with RVR Status: Acute Assessment and plan: * Septic shock clinically improved now off vasopressors. Leukocytosis downtrending at 13.5. Evidence of endorgan failure with ANUPAMA/a flutter RVR. * Bilateral pneumonia clinically and radiological improvement noted. * A flutter with RVR, improving control on amiodarone * Acute cholecystitis on imaging however surgeon of the opinion pericholecystic fluid and antibiotics secondary to heart failure and no indication for surgery at this time * Acute renal failure with creatinine 4.2 secondary to septic shock. * Decompensated heart failure-restart diuresis once hypotension resolved. EF 40 to 45% with depressed LV function * COPD exacerbation-history of emphysema/bronchiectasis. Continue bronchodilators/steroids/pulmonary toilet. Antibiotic coverage * History of hypertension held lisinopril * Hyperlipidemia continue statin * GERD continue PPI * Full code * Prophylaxis heparin Plan * Continue antibiotics * Bronchodilators/steroids/pulmonary toilet/oxygen * PT OT nutrition support * pre-existing medical condition management on home meds * Consider transfer to tertiary center for cardiology consultation if inadequate rate control Current Visit: Yes
--- NOTE | 2019-08-17 16:27 | Transfer Summary ---
Transfer Discharge Sum: Prov Patient information: Note initiated : 08/17/19 at 4:24 pm Service Date, if different from initiated Date: [] Patient: Mat Elam 78 y/o M admitted on 08/13/19 for cough, elevated HR. Chief Complaint: [] Date of admission: 08/13/19 17:51 Discharge Date: 08/17/19 Primary care physician: Christiano Gramajo Consults: 08/14/19 08:56 Consult to Physician [CONS] Routine Comment: Consulting Provider: Héctor Wick Reason For Exam: Physician to Consult 08/16/19 08:58 Consult to Physician [CONS] Routine Comment: Consulting Provider: Pamela Thorne Reason For Exam: Physician to Consult 08/16/19 10:49 Consult to Physician [CONS] Routine Comment: Consulting Provider: Jeff Ingram Reason For Exam: Physician to Consult 08/17/19 09:42 Consult to Physician [CONS] Routine Comment: Consulting Provider: Felipe Coffman Reason For Exam: Physician to Consult Receiving physician/facility: Dr. M[facility] Transfer Discharge Sum: Diag - Discharge Diagnosis (1) Atrial fibrillation with RVR Status: Acute Transfer Discharge Sum: Med - Medications Active and Home Medications: Home Medications lisinopril 10 mg tablet 10 mg PO QDAY 09/18/17 [History Confirmed 08/13/19] omeprazole 20 mg capsule,delayed release 20 mg PO .COMPLEX 09/18/17 [History Confirmed 08/13/19] simvastatin 10 mg tablet 10 mg PO QDAY tab 01/31/18 [History Confirmed 08/13/19] 2 liters oxygen at night 1 dose .ROUTE QHS #1 ea 12/26/18 [History Confirmed 08/13/19] Cranberry 400 mg PO DAILY 08/13/19 [History Confirmed 08/13/19] Gelatin [Gelfilm] 1 tab PO DAILY 08/13/19 [History Confirmed 08/13/19] Turmeric Root Extract [Turmeric] 1 tab PO DAILY 08/13/19 [History Confirmed 08/13/19] Vitamin D3 1,000 unit PO DAILY 08/13/19 [History Confirmed 08/13/19] Active Medications Acetaminophen (Tylenol) 650 mg PO Q4-6HP PRN; Protocol PRN Reason: Per Pain Protocol/Fever > 101 Albuterol/Ipratropium (Duoneb) 3 ml NEB Q4HP PRN PRN Reason: Shortness Of Breath Last Admin: 08/15/19 09:16 Dose: 3 ml Documented by: Amiodarone HCl (Cordarone) 200 mg PO TID [facility] Last Admin: 08/17/19 16:15 Dose: 200 mg Documented by: Bisacodyl (Dulcolax) 10 mg NE Q2-3DAYS PRN PRN Reason: Constipation Budesonide (Pulmicort) 0.5 mg NEB Q12 [facility] Last Admin: 08/17/19 09:20 Dose: Not Given Documented by: Docusate Sodium (Colace) 100 mg PO BID [facility] Last Admin: 08/17/19 09:57 Dose: Not Given Documented by: Heparin Sodium (Porcine) (Heparin) 5,000 unit SQ Q12 [facility] Last Admin: 08/17/19 10:30 Dose: 5,000 unit Documented by: Heparin Sodium (Porcine) (Heparin Flush) 2 ml IV Q12 [facility] Last Admin: 08/17/19 10:29 Dose: 2 ml Documented by: Acetaminophen (Ofirmev) 650 mg in 65 mls @ 130 mls/hr IV Q6HP PRN; Protocol PRN Reason: Per Pain Protocol/Fever > 101 Magnesium Sulfate (Magnesium Sulfate) 2 gm in 50 mls @ 50 mls/hr IV UD PRN PRN Reason: MG = or < 1.7 Potassium Chloride 40 meq/ (Dextrose) 520 mls @ 130 mls/hr IV UD PRN PRN Reason: K+ = or < 3.5 Norepinephrine Bitartrate 16 (mg/ Sodium Chloride) 250 mls @ 9.375 mls/hr IV Q24H [facility]; Protocol Last Admin: 08/17/19 10:31 Dose: Not Given Documented by: Sodium Chloride (Sodium Chloride 0.9%) 250 mls @ 20 mls/hr IV .[id number] [facility] Last Admin: 08/17/19 16:11 Dose: Not Given Documented by: Piperacillin Sod/Tazobactam (Sod 2.25 gm/ Dextrose) 50 mls @ 100 mls/hr IV Q6H [facility]; Protocol Last Infusion: 08/17/19 10:20 Dose: Infused Documented by: Iron Carb/Multivit/Fajardo/Folic Acid (Multivitamin W/Minerals) 1 tab PO DAILY [facility] Last Admin: 08/17/19 10:30 Dose: 1 tab Documented by: Melatonin (Melatonin 3mg Tablet) 3 mg PO HSP PRN PRN Reason: Insomnia Omeprazole (Prilosec) 20 mg PO MoWeFr@0730 [facility] Last Admin: 08/17/19 07:53 Dose: 20 mg Documented by: Ondansetron HCl (Zofran Odt) 4 mg SL Q4-6HP PRN; Protocol PRN Reason: Nausea And Vomiting Ondansetron HCl (Zofran) 4 mg IV Q4-6HP PRN; Protocol PRN Reason: Nausea And Vomiting Polyethylene Glycol (Miralax) 17 gm PO DAILYP PRN PRN Reason: Constipation Potassium Chloride (Klor-Con) 40 meq PO DAILYP PRN PRN Reason: K+ < 3.5 Senna/Docusate Sodium (Senna Plus Tablet) 1 tab PO HS [facility] Last Admin: 08/16/19 20:33 Dose: 1 tab Documented by: Simvastatin (Zocor) 10 mg PO QDAY [facility] Last Admin: 08/17/19 10:30 Dose: 10 mg Documented by: Sodium Bicarbonate (Sodium Bicarbonate) 1,300 mg PO BID [facility] Last Admin: 08/17/19 10:30 Dose: 1,300 mg Documented by: Sodium Chloride (Saline Flush) 10 ml IV Q8 [facility] Last Admin: 08/17/19 16:15 Dose: 10 ml Documented by: Sodium Chloride (Saline Flush) 10 ml IV UD PRN PRN Reason: FLUSH Sodium Chloride (Saline Flush) 10 ml IV Q12 [facility] Last Admin: 08/17/19 10:31 Dose: 10 ml Documented by: Thiamine HCl (Vitamin B1) 100 mg PO DAILY [facility] Last Admin: 08/17/19 10:30 Dose: 100 mg Documented by: Transfer Discharge Sum: Hosp Hospital course: Discharge diagnosis * A flutter with RVR, unable to rate control despite amiodarone, CCB, beta- prince. Cardiology consulted and patient accepted at [facility]. * Septic shock (unclear etiology )clinically resolved now off vasopressors. Leukocytosis downtrending from 20.5-> 13.5. Evidence of endorgan failure with ANUPAMA/a flutter RVR. * Bilateral chest infiltrates clinically and radiological improvement noted. Unlikely pneumonia and likely represents cardiogenic pulmonary edema secondary to A. fib RVR * Acute cholecystitis on imaging however surgeon of the opinion pericholecystic fluid and gallbladder edema secondary to heart failure and no indication for surgery at this time. * Acute renal failure - creatinine 4.2 secondary to ischemic ATN from septic shock. nephrology on board. Patient may require hemodialysis and being transferred to [facility] * Decompensated heart failure-secondary to a flutter with RVR. EF 40 to 45% with depressed LV function * COPD exacerbation-history of emphysema/bronchiectasis. Continue bronchodilators/steroids/pulmonary toilet. Antibiotic coverage * History of hypertension held lisinopril * Hyperlipidemia continue statin Brief hospital course Mr. 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 Symptoms progressed to the point patient could barely function. Shortness of breath progressed from maximal exertion to minimal activity. He also has been experiencing chest fluttering sensation over the last couple of days. With increasing concerns he presents to the ER. Initial work-up was consistent with A. fib RVR/bilateral pneumonia. Patient was started on antibiotic coverage. Hospitalist service was consulted. Of the evaluation patient is accompanied with his . He was able to answer most of the questions. He denies headache photophobia but endorses to increasing yellow productive sputum/increasing dyspnea and symptoms as above. He denies diarrhea, dysuria, abdominal pain, chest pain, diaphoresis. He recently had a aspiration episode on a pill with spells of coughing and eventually was able to cough out the pill but feels that his symptoms has worsens since that day. He denies sick contact. He endorses recent travel to [place] for ice fishing a week ago. 08/13-patient doing better however had a rough night but was unable to sleep. Ra te controlled around 110 requiring intermittent diltiazem boluses. On antibiotic coverage. White count at 14.3, sputum culture pending. Afebrile. Ongoing physical therapy. Tolerating diet. 08/14-persistent RVR requiring diltiazem drip in addition metoprolol 25 twice daily. Patient developed bradycardia and hypotension after transiently converting to sinus. A flutter with forced to 1/5-1 block. Systolics 60s. Glucagon ordered and discontinued diltiazem drip. Glucagon drip started along with nor epi drip. 1/2 L fluid bolus challenge. Following initial intervention systolics improved to mid 80s. Patient less symptomatic. Continue ICU monitoring. Initial blood culture gram-positive cocci. Surveillance cultures negative so far. X-ray chest worsening chest infiltrates/pneumonia. Sputum gram-positive cocci. Patient critically ill with deteriorating respiratory status/pneumonia and sepsis. White count 19.6. 08/15-creatinine elevation to 2.9. On vasopressors for septic shock. White count 20.7. GPC bacteremia now determined is contaminant. ID consulted. Central venous access today. Nephrology consulted. Close I/O monitoring/avoid nephrotoxins. Continue antibiotic coverage and de-escalate based on ID recommendations. Phosphorus 6.3. Rate controlled on amiodarone 08/16-patient in acute renal failure with creatinine over 4. Nephrology on board. Likely ischemic ATN. However improved sepsis now off pressors. Continues to be in A flutter with RVR with rate around 140s despite amiodarone. White count down to 13.5 from 20.7. Per surgery unlikely to be related related gallbladder findings on imaging. ID on board. Continuing antibiotic coverage. In light of persistent a flutter with RVR not responding to conventional treatment and possibly need of hemodialysis requiring HD catheter placement coordinating transfer to [facility] for further care including cardiology and nephrology consultation. Case was discussed with Dr. Grimaldo hospitalist and Dr. Amezquita blood bank calendar control clerk at [facility]. Highly appreciate [facility] physicians for accepting this patient for further management. Please call hospitalist noemi at [phone] for questions - Time Spent with Patient Total time spent providing and/or coordinating transfer services: Greater than 30 minutes Transfer Discharge Sum: Exam - Constitutional Vitals: Vital Signs Temp Pulse Resp BP Pulse Ox 08/17/19 16:01 98.4 F 24 H 121/91 96 08/17/19 15:01 25 H 111/92 99 08/17/19 14:01 16 119/84 100 08/17/19 12:31 29 H 98 08/17/19 12:01 97.7 F 66 20 103/78 97 08/17/19 09:01 29 H 106/72 97 03/20/20 08:03 97 F 28 H 113/74 95 20/20 08:00 28 H 96 08/16/20 07:00 32 H 103/74 20/20 06:00 19 110/77 97 20 05:00 20 109/74 96 08/16/20 04:00 97.6 F 21 101/72 96 20/20 03:00 19 99/74 95 20 02:00 24 H 105/76 97 20 01:00 20 94/70 96 20/20 00:01 97.4 F 23 H 110/79 97 08/15/20 23:16 26 H 107/79 96 08/15/20 23:01 21 97/85 95 08/15/20 22:46 22 101/81 95 08/15/20 22:31 21 104/74 95 08/15/20 22:16 23 H 110/74 95 08/15/20 22:01 21 108/83 95 08/15/20 21:46 30 H 111/80 96 08/15/20 21:31 23 H 113/79 95 08/15/20 21:16 29 H 115/84 97 19/20 21:01 30 H 120/81 96 19/20 20:46 28 H 122/85 97 08/15/20 20:31 24 H 113/83 97 08/15/20 20:16 23 H 113/81 97 08/15/20 20:01 98.7 F 28 H 114/86 97 08/15/20 20:00 24 H 98 08/15/20 19:48 36 H 108/88 98 0319/20 19:31 23 H 114/86 19/20 19:16 22 116/83 99 0319/20 19:01 30 H 113/90 98 19/20 18:46 24 H 122/83 91 19/20 18:31 32 H 118/85 98 19/20 18:16 114/84 97 19/20 18:01 113/82 98 19/20 17:00 26 H 126/50 97 19/20 16:46 26 H 112/84 97 19/20 16:31 26 H 121/93 97 Intake and Output 08/17/19 08/17/19 08/17/19 05:59 13:59 21:59 Intake Total 300 650 Output Total 375 550 Balance -75 100 Intake: IV 50 Zosyn 2.25 gm In Dextrose 5% in 50 Water 50 ml @ 100 mls/hr IV Q6H [facility] Rx#:[id number] Oral 300 600 Output: Void Amount 375 550 Other: Meal Nourishment/Supplement Percent of Meal Consumed 100% Feeding Ability Independent Urine Appearance Clear Clear Urine Color Bright Yellow Bright Yellow Urine Odor Normal Strong Stool Size Moderate Moderate Stool Color Brown Brown Stool Consistency Liquid Liquid Loose Loose # Voids 1 # Bowel Movements 1 Weight 176 lb 9.6 oz Patient Weight 08/18/19 05:59 Weight 176 lb 9.6 oz Transfer Discharge Sum: Data Procedures and tests throughout hospitalization: Pending Orders 08/13/19 14:10 Blood Culture Stat 08/13/19 16:11 Resuscitation Status Routine 08/13/19 18:00 Acetaminophen [Ofirmev] 650 mg in 65 ml IV Q6HP Acetaminophen [Tylenol] 650 mg PO Q4-6HP PRN Bisacodyl [Dulcolax] 10 mg NE Q2-3DAYS PRN Ipratropium/Albuterol [Duoneb] 3 ml NEB Q4HP PRN Magnesium Sulfate 2 gm in 50 ml IV UD Melatonin [Melatonin 3Mg Tablet] 3 mg PO HSP PRN Ondansetron [Zofran Odt] 4 mg SL Q4-6HP PRN Ondansetron [Zofran] 4 mg IV Q4-6HP PRN Polyethylene Glycol 3350 [Miralax] 17 gm PO DAILYP PRN Potassium Chloride 40 meq Dextrose 5% in Water 500 ml IV UD Potassium Chloride [Klor-Con] 40 meq PO DAILYP PRN 08/13/19 18:00 Case Management Referral .Routine Admit as Inpatient Routine Ambulate-Progressive PRN Blood Culture PRN PRN satellite project site monitor CONT Condition Routine Elevate head of bed .ROUTINE Intake and Output Q4H Occult blood, stool, guaic poc .ALL STOOLS Oral hygiene .ROUTINE PICC Line PRN Specialty Bed PRN Weight Monitoring QHS RD to Adjust Diet/Supplements as Needed Routine Occupational Therapy Eval & Tx DAILY Physical Therapy Eval & Tx QD-BID Incentive Spirometry Assess/Tx Q2HWA Nebulizer management .Routine Oxygen Order .Routine 08/13/19 21:00 Budesonide [Pulmicort] 0.5 mg NEB Q12 Docusate Sodium [Colace] 100 mg PO BID Heparin 5,000 unit SQ Q12 Sennosides/Docusate Sodium [Senna Plus Tablet] 1 tab PO HS 08/13/19 22:00 0.9 % Sodium Chloride [Saline Flush] 10 ml IV Q8 08/14/19 08:56 Consult to Physician [CONS] Routine 08/14/19 09:00 Multivit,Ther Iron,Ca,FA & Min [Multivitamin W/Minerals] 1 tab PO DAILY Simvastatin [Zocor] 10 mg PO QDAY Thiamine [Vitamin B1] 100 mg PO DAILY 08/14/19 14:25 Blood Culture Urgent 08/15/19 07:30 Omeprazole [PriLOSEC] 20 mg PO MoWeFr@0730 08/15/19 12:00 0.9 % Sodium Chloride [Sodium Chloride 0.9%] 250 ml IV 20 mls/hr Norepinephrine Bitartrate [Levophed] 16 mg 0.9 % Sodium Chloride [Sodium Chloride 0.9%] 234 ml IV Q24H 08/16/19 08:07 Sputum Culture and Gram Stain Urgent 08/16/19 08:58 Consult to Physician [CONS] Routine 08/16/19 09:00 Sodium Bicarbonate 1,300 mg PO BID 08/16/19 10:49 Consult to Physician [CONS] Routine 08/16/19 12:13 Heat Therapy Device Management DAILY PICC Dressing Change PRN PICC Line ONCE 0.9 % Sodium Chloride [Saline Flush] 10 ml IV UD PRN 08/16/19 21:00 0.9 % Sodium Chloride [Saline Flush] 10 ml IV Q12 Amiodarone HCl [Cordarone] 200 mg PO TID Heparin Flush 2 ml IV Q12 08/17/19 09:39 Strict NPO .ROUTINE 08/17/19 09:42 Consult to Physician [CONS] Routine 08/17/19 09:45 Piperacillin Sodium/Tazobactam [Zosyn] 2.25 gm Dextrose 5% in Water 50 ml IV Q6H 08/17/19 12:13 PICC Dressing Change ONCE 08/17/19 12:52 Renal Diet 08/18/19 05:00 Complete Blood Count Man Dif DAILY Inpatient Panel DAILY 08/22/19 12:13 PICC Dressing Change Q7D Transfer Discharge Sum: A/P - Problem Maintenance (1) Atrial fibrillation with RVR Status: Acute - Plan Functional capacity at transfer: bed bound Overall status at transfer: patient is not back to baseline Disposition: [facility]
[2019-08-17] MEDS ORDERED: HEPARIN/NS 500 ML IV SCH (16:45)
--- NOTE | 2019-08-17 17:57 | Infectious Disease Prog Note ---
Subjective Patient information: Note initiated : 08/17/19 at 5:55 pm Service Date, if different from initiated Date: [] Patient: Mat Elam 78 y/o M admitted on 08/13/19 for cough, elevated HR. Chief Complaint: [] Interval history: Pt doing better. Denied any fever, chills, n/v, diarrhea. Denies any right sided belly pain. Endorses mildly productive cough with some yellow sputum. Objective Objective Narrative: ao x 3, in nad chest has VBS b/l with crackles at bases s1 s2 normal bs ++ nttd, no rebound/guarding or RUQ pain no edema in legs - Vital Signs Vital signs: Vital Signs Temp Pulse Resp BP Pulse Ox 08/17/19 17:01 28 H 120/89 98 08/17/19 16:01 36.9 C 24 H 121/91 96 08/17/19 15:01 25 H 111/92 99 08/17/19 14:01 16 119/84 100 08/17/19 14:00 20 96 08/17/19 12:31 29 H 98 08/17/19 12:01 36.5 C 66 20 103/78 97 08/17/19 09:01 29 H 106/72 97 08/17/19 08:03 36.1 C 28 H 113/74 95 08/17/19 08:00 28 H 96 08/17/19 07:00 32 H 103/74 08/17/19 06:00 19 110/77 97 08/17/19 05:00 20 109/74 96 08/17/19 04:00 36.4 C 21 101/72 96 08/17/19 03:00 19 99/74 95 08/17/19 02:00 24 H 105/76 97 08/17/19 01:00 20 94/70 96 08/17/19 00:01 36.3 C 23 H 110/79 97 08/16/19 23:16 26 H 107/79 96 08/16/19 23:01 21 97/85 95 08/16/19 22:46 22 101/81 95 08/16/19 22:31 21 104/74 95 08/16/19 22:16 23 H 110/74 95 08/16/19 22:01 21 108/83 95 08/16/19 21:46 30 H 111/80 96 08/16/19 21:31 23 H 113/79 95 08/16/19 21:16 29 H 115/84 97 08/16/19 21:01 30 H 120/81 96 08/16/19 20:46 28 H 122/85 97 08/16/19 20:31 24 H 113/83 97 08/16/19 20:16 23 H 113/81 97 08/16/19 20:01 37.1 C 28 H 114/86 97 08/16/19 20:00 24 H 98 08/16/19 19:48 36 H 108/88 98 08/16/19 19:31 23 H 114/86 08/16/19 19:16 22 116/83 99 08/16/19 19:01 30 H 113/90 98 08/16/19 18:46 24 H 122/83 91 08/16/19 18:31 32 H 118/85 98 08/16/19 18:16 114/84 97 08/16/19 18:01 113/82 98 Intake and Output 08/17/19 08/17/19 08/17/19 05:59 13:59 21:59 Intake Total 300 650 240 Output Total 375 550 Balance -75 100 240 Intake: IV 50 Zosyn 2.25 gm In Dextrose 5% in 50 Water 50 ml @ 100 mls/hr IV Q6H ISABELA Rx#:[id number] Oral 300 600 240 Output: Void Amount 375 550 Other: Meal Nourishment/Supplement Dinner Percent of Meal Consumed 100% 75% Feeding Ability Independent Independent Urine Appearance Clear Clear Clear Urine Color Bright Yellow Bright Yellow Bright Yellow Urine Odor Normal Strong Strong Stool Size Moderate Moderate Moderate Stool Color Brown Brown Brown Stool Consistency Liquid Liquid Liquid Loose Loose Loose # Voids 1 # Bowel Movements 1 Weight 80.104 kg Patient Weight 08/18/19 05:59 Weight 80.104 kg Intake & Output: Intake & Output 08/17/19 08/17/19 08/17/19 05:59 13:59 21:59 Intake Total 300 650 240 Output Total 375 550 Balance -75 100 240 Weight 80.104 kg Intake: IV 50 Zosyn 2.25 gm In Dextrose 5% in 50 Water 50 ml @ 100 mls/hr IV Q6H ISABELA Rx#:[id number] Oral 300 600 240 Output: Void Amount 375 550 Other: Meal Nourishment/Supplement Dinner Percent of Meal Consumed 100% 75% Feeding Ability Independent Independent Urine Appearance Clear Clear Clear Urine Color Bright Yellow Bright Yellow Bright Yellow Urine Odor Normal Strong Strong Stool Size Moderate Moderate Moderate Stool Color Brown Brown Brown Stool Consistency Liquid Liquid Liquid Loose Loose Loose # Voids 1 # Bowel Movements 1 - Lab 08/17/19 05:00 08/17/19 05:00 Most recent lab results Calcium 8.5 mg/dl (8.6-10.4) L 08/17/19 05:00 Phosphorus 6.4 mg/dL (2.7-4.5) H* 08/17/19 05:00 Magnesium 2.2 mg/dL (1.6-2.5) 08/17/19 05:00 Microbiology 08/14/19 14:25 Blood Blood Culture - Preliminary 08/14/19 14:19 Blood Blood Culture - Preliminary 08/13/19 14:10 Blood Blood Culture - Preliminary 08/16/19 08:07 Sputum - Expectorated Gram Stain - Final 08/16/19 08:07 Sputum - Expectorated Sputum Culture - Preliminary 08/14/19 09:21 Sputum - Expectorated Gram Stain - Final 08/14/19 09:21 Sputum - Expectorated Sputum Culture - Final 08/13/19 14:07 Blood Blood Culture - Preliminary Gram positive cocci 08/13/19 20:00 Nose - Both Right and Left MRSA (PCR) - Final Medications Active Medications: Acetaminophen (Tylenol) 650 mg PO Q4-6HP PRN; Protocol PRN Reason: Per Pain Protocol/Fever > 101 Last Admin: 08/17/19 17:22 Dose: 650 mg Documented by: [id number] Albuterol/Ipratropium (Duoneb) 3 ml NEB Q4HP PRN PRN Reason: Shortness Of Breath Last Admin: 08/15/19 09:16 Dose: 3 ml Documented by: [email or web address] Admin: 08/14/19 20:36 Dose: 3 ml Documented by: Admin: 08/14/19 09:23 Dose: 3 ml Documented by: [email or web address] Admin: 08/13/19 21:21 Dose: 3 ml Documented by: CONCEPCION Amiodarone HCl (Cordarone) 200 mg PO TID ISABELA Last Admin: 08/17/19 16:15 Dose: 200 mg Documented by: [id number] Admin: 08/17/19 10:30 Dose: 200 mg Documented by: [id number] Admin: 08/16/19 20:33 Dose: 200 mg Documented by: [email or web address] Bisacodyl (Dulcolax) 10 mg VA Q2-3DAYS PRN PRN Reason: Constipation Budesonide (Pulmicort) 0.5 mg NEB Q12 [facility] Last Admin: 08/17/19 09:20 Dose: Not Given Documented by: GIOVANNI Non-Admin Reason: Per CDC protocol Admin: 08/16/19 19:32 Dose: Not Given Documented by: [email or web address] Non-Admin Reason: said to hold for 24 hrs Admin: 08/16/19 09:36 Dose: Not Given Documented by: CAMDEN Non-Admin Reason: PER DR GUTIERREZ Admin: 08/15/19 23:00 Dose: Not Given Documented by: [email or web address] Non-Admin Reason: Clinical Judgement Admin: 08/15/19 09:16 Dose: 0.5 mg Documented by: [email or web address] Admin: 08/14/19 20:36 Dose: 0.5 mg Documented by: Admin: 08/14/19 09:23 Dose: 0.5 mg Documented by: [email or web address] Admin: 08/13/19 21:17 Dose: 0.5 mg Documented by: CONCEPCION Docusate Sodium (Colace) 100 mg PO BID [facility] Last Admin: 08/17/19 09:57 Dose: Not Given Documented by: [email or web address] Non-Admin Reason: Patient Refused Admin: 08/16/19 20:33 Dose: 100 mg Documented by: [email or web address] Comments: barcode broken wouldn't scan Admin: 08/16/19 08:20 Dose: 100 mg Documented by: [email or web address] Admin: 08/15/19 21:43 Dose: 100 mg Documented by: Admin: 08/15/19 08:13 Dose: 100 mg Documented by: Admin: 08/14/19 20:45 Dose: 100 mg Documented by: Admin: 08/14/19 09:57 Dose: 100 mg Documented by: [email or web address] Admin: 08/13/19 20:55 Dose: 100 mg Documented by: AG Heparin Sodium (Porcine) (Heparin) 5,000 unit SQ Q12 [facility] Last Admin: 08/17/19 10:30 Dose: 5,000 unit Documented by: Admin: 08/16/19 20:32 Dose: 5,000 unit Documented by: Admin: 08/16/19 08:21 Dose: 5,000 unit Documented by: Admin: 08/15/19 21:43 Dose: 5,000 unit Documented by: Admin: 08/15/19 08:14 Dose: 5,000 unit Documented by: Admin: 08/14/19 20:45 Dose: 5,000 unit Documented by: Admin: 08/14/19 09:56 Dose: 5,000 unit Documented by: [id number] Admin: 08/13/19 20:55 Dose: 5,000 unit Documented by: AG Heparin Sodium (Porcine) (Heparin Flush) 2 ml IV Q12 [facility] Last Admin: 08/17/19 10:29 Dose: 2 ml Documented by: Admin: 08/16/19 20:34 Dose: Not Given Documented by: [email or web address] Non-Admin Reason: done in afternoon after placement Acetaminophen (Ofirmev) 650 mg in 65 mls @ 130 mls/hr IV Q6HP PRN; Protocol PRN Reason: Per Pain Protocol/Fever > 101 Magnesium Sulfate (Magnesium Sulfate) 2 gm in 50 mls @ 50 mls/hr IV UD PRN PRN Reason: MG = or < 1.7 Potassium Chloride 40 meq/ (Dextrose) 520 mls @ 130 mls/hr IV UD PRN PRN Reason: K+ = or < 3.5 Norepinephrine Bitartrate 16 (mg/ Sodium Chloride) 250 mls @ 9.375 mls/hr IV Q24H [facility]; Protocol Last Admin: 08/17/19 10:31 Dose: Not Given Documented by: JOSE Non-Admin Reason: Clinical Judgement Admin: 08/16/19 16:03 Dose: Not Given Documented by: [email or web address] Non-Admin Reason: on hold Titration: 08/16/19 11:40 Dose: 0 mcg/min, 0 mls/hr Documented by: Titration: 08/16/19 02:25 Dose: 10 mcg/min, 9.375 mls/hr Documented by: Admin: 08/16/19 02:22 Dose: 5 mcg/min, 4.688 mls/hr Documented by: Titration: 08/16/19 02:22 Dose: 5 mcg/min, 4.688 mls/hr Documented by: Titration: 08/15/19 22:04 Dose: 5 mcg/min, 4.688 mls/hr Documented by: Admin: 08/15/19 12:25 Dose: 10 mcg/min, 9.375 mls/hr Documented by: [email or web address] Sodium Chloride (Sodium Chloride 0.9%) 250 mls @ 20 mls/hr IV .[id number] [facility] Last Admin: 08/17/19 16:11 Dose: Not Given Documented by: [id number] Non-Admin Reason: Clinical Judgement Admin: 08/17/19 03:47 Dose: Not Given Documented by: [email or web address] Non-Admin Reason: not needed, no drip Admin: 08/16/19 16:11 Dose: Not Given Documented by: [email or web address] Non-Admin Reason: on hold right no2 Admin: 08/16/19 02:22 Dose: Not Given Documented by: AG Non-Admin Reason: Chest Pain Admin: 08/15/19 12:25 Dose: Not Given Documented by: [email or web address] Non-Admin Reason: previously ordered with cardizem Piperacillin Sod/Tazobactam (Sod 2.25 gm/ Dextrose) 50 mls @ 100 mls/hr IV Q6H ISABELA; Protocol Last Infusion: 08/17/19 10:20 Dose: 0 mls/hr Documented by: [id number] Admin: 08/17/19 09:45 Dose: 100 mls/hr Documented by: [email or web address] Heparin Sodium/Sodium Chloride (Heparin/Ns) 500 mls @ 0 mls/hr IV .Q0M ISABELA; Protocol Iron Carb/Multivit/Transportation Services Representative/Folic Acid (Multivitamin W/Minerals) 1 tab PO DAILY [facility] Last Admin: 08/17/19 10:30 Dose: 1 tab Documented by: [id number] Admin: 08/16/19 08:20 Dose: 1 tab Documented by: [email or web address] Admin: 08/15/19 08:13 Dose: 1 tab Documented by: [email or web address] Admin: 08/14/19 09:57 Dose: 1 tab Documented by: [id number] Melatonin (Melatonin 3mg Tablet) 3 mg PO HSP PRN PRN Reason: Insomnia Omeprazole (Prilosec) 20 mg PO [id number] [facility] Last Admin: 08/17/19 07:53 Dose: 20 mg Documented by: Admin: 08/15/19 07:18 Dose: 20 mg Documented by: [email or web address] Ondansetron HCl (Zofran Odt) 4 mg SL Q4-6HP PRN; Protocol PRN Reason: Nausea And Vomiting Ondansetron HCl (Zofran) 4 mg IV Q4-6HP PRN; Protocol PRN Reason: Nausea And Vomiting Polyethylene Glycol (Miralax) 17 gm PO DAILYP PRN PRN Reason: Constipation Potassium Chloride (Klor-Con) 40 meq PO DAILYP PRN PRN Reason: K+ < 3.5 Senna/Docusate Sodium (Senna Plus Tablet) 1 tab PO HS [facility] Last Admin: 08/16/19 20:33 Dose: 1 tab Documented by: Admin: 08/15/19 21:43 Dose: 1 tab Documented by: Admin: 08/14/19 20:45 Dose: 1 tab Documented by: Admin: 08/13/19 20:55 Dose: 1 tab Documented by: AG Simvastatin (Zocor) 10 mg PO QDAY [facility] Last Admin: 08/17/19 10:30 Dose: 10 mg Documented by: Admin: 08/16/19 08:21 Dose: 10 mg Documented by: Admin: 08/15/19 08:13 Dose: 10 mg Documented by: Admin: 08/14/19 09:57 Dose: 10 mg Documented by: [id number] Sodium Bicarbonate (Sodium Bicarbonate) 1,300 mg PO BID [facility] Last Admin: 08/17/19 10:30 Dose: 1,300 mg Documented by: [id number] Admin: 08/16/19 20:32 Dose: 1,300 mg Documented by: Admin: 08/16/19 13:25 Dose: 1,300 mg Documented by: [email or web address] Sodium Chloride (Saline Flush) 10 ml IV Q8 [facility] Last Admin: 08/17/19 16:15 Dose: 10 ml Documented by: Admin: 08/17/19 05:12 Dose: 10 ml Documented by: Admin: 08/16/19 20:33 Dose: 10 ml Documented by: [email or web address] Admin: 08/16/19 16:09 Dose: 10 ml Documented by: Admin: 08/16/19 07:24 Dose: 10 ml Documented by: Admin: 08/15/19 21:43 Dose: 10 ml Documented by: Admin: 08/15/19 15:21 Dose: 10 ml Documented by: Admin: 08/15/19 05:57 Dose: 10 ml Documented by: Admin: 08/14/19 23:58 Dose: 10 ml Documented by: Admin: 08/14/19 13:34 Dose: Not Given Documented by: [email or web address] Non-Admin Reason: Continuous IV Admin: 08/14/19 06:01 Dose: 10 ml Documented by: Admin: 08/13/19 22:25 Dose: 10 ml Documented by: AG Sodium Chloride (Saline Flush) 10 ml IV UD PRN PRN Reason: FLUSH Sodium Chloride (Saline Flush) 10 ml IV Q12 [facility] Last Admin: 08/17/19 10:31 Dose: 10 ml Documented by: [id number] Admin: 08/16/19 20:33 Dose: Not Given Documented by: [email or web address] Non-Admin Reason: done on placement Thiamine HCl (Vitamin B1) 100 mg PO DAILY [facility] Last Admin: 08/17/19 10:30 Dose: 100 mg Documented by: [id number] Admin: 08/16/19 08:20 Dose: 100 mg Documented by: Admin: 08/15/19 08:13 Dose: 100 mg Documented by: Admin: 08/14/19 09:57 Dose: 100 mg Documented by: [email or web address] Assessment and Plan - Narrative A/P Narrative: A: 1. Acute Afib with RVR - precipitated by trip to higher altitude and hypoxia - currently around 140s - not associated with acute AL 2. Acute heart failure with pulmonary edema: resolving. - sec to acute Afib with RVR. - likely responsible for b/l infiltrates - on 2L of O2 via NC 3. ANUPAMA: UOP picking up - sec to low cardiac output 4. Shock: seems sec to (2) - off pressors as of yesterday 5. Contaminant on blood Cx: 06/02 bottles on 08/12 +ve for Staph simulans, with repeat blood Cx from 08/14 neg 6. Leucocytosis: resolving - probably sec to GB wall thickening (?cholecystitis) - absence of fever, improving O2 req, CXR getting better, coming off pressors do not suggest worsening pneumonia, instead suggests improvement. Recommendations: - Continue IV Zosyn 2.25 gm q6 hrs. - Afib management per primary team - f/u with GS for GB findings on US will follow Jeff Ingram MD Infectious diseases
== END 2019-08-17 18:40 | disposition short-term general hospital (02) | DRG 871 ==
LOC: ED 12:50 → ICU 17:51
PROVIDERS: ADMIT Internal Medicine; ATTEND Internal Medicine

== ENCOUNTER 2021-12-04 12:01 | Inpatient (IN) ==
--- NOTE | 2021-12-04 12:38 | XRay Report ---
INDICATION: hypoxia TECHNIQUE: AP portable upright chest x-ray COMPARISON: Previous chest x-rays dated 10/09/2021, 08/14/2021. Previous chest CT scan dated 03/07/2020 FINDINGS: Lungs:Diffusely abnormal lungs. There is diffuse interstitial abnormality. 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 There has been interval progression. Superimposed pneumonia is not excluded. Clinical correlation and follow-up radiographs are recommended Heart, vascular:No significant cardiomegaly. Pulmonary vascularity is normal. No pulmonary edema or pulmonary congestion Mediastinum, nicole:No mediastinal widening. No hilar mass Pleura:No pleural fluid. No pleural-based mass or calcification Skeletal:Negative. IMPRESSION: 1. Increasing interstitial infiltrates bilaterally. 2. Appearance is consistent with progressive interstitial fibrosis. Superimposed pneumonia is possible Interpreted and Authenticated by: Juma Maurice 12/04/21
[2021-12-04 12:41] LABS: POC Calcium, Ionized 1.11 (1.16-1.32); POC Creatinine 2.2 (0.6-1.2)
--- NOTE | 2021-12-04 13:11 | Cat Scan Report ---
INDICATION: fall, hit head on eliquis COMPARISON: None. TECHNIQUE: Axial noncontrast-enhanced images through the brain. Sagittally and coronally reformatted images. FINDINGS: Cerebral hemispheres:Negative. No intra-axial abnormality. No intra-axial hematoma. No localized mass effect. There is cerebral atrophy with prominent superficial subarachnoid spaces and ventricles. No acute intra-axial abnormality. No localized mass effect. Brainstem and cerebellum:Brainstem is negative. No intra-axial abnormality. There is cerebellar atrophy. No intra-axial hemorrhage. Extra-axial:No acute hemorrhage. No subdural or epidural hematoma. No subarachnoid hemorrhage. Basilar cisterns are normal Calvarial:No calvarial fracture. No lytic lesion Temporal bones are negative. No destructive lesions Soft tissue, orbits, sinuses:Orbits and visualized facial soft tissues and paranasal sinuses are negative IMPRESSION: 1. No acute abnormality. No intracranial hemorrhage 2. Cerebral atrophy. No focal abnormality The exam was performed using radiation dose optimization techniques including, but not limited to, automated exposure control, adjustment of the mA and/or kV according to patient size and use of iterative reconstruction technique. Interpreted and Authenticated by: Juma Maurice 12/04/21
--- NOTE | 2021-12-04 13:15 | Cat Scan Report ---
INDICATION: fall COMPARISON: None. TECHNIQUE: Axial thin section images through the cervical spine. Sagittally and coronally reformatted images. The exam was performed using radiation dose optimization techniques including, but not limited to, automated exposure control, adjustment of the mA and/or kV according to patient size and use of iterative reconstruction technique. FINDINGS: Vertebral bodies, spinous processes:No vertebral body or spinous process fracture. No acute abnormality. Alignment is anatomic without anterolisthesis Normal odontoid process. No fracture. Occipital condyles and C1 are negative. No atlantoaxial subluxation. Facets:Multilevel degenerative facet arthropathy. No perched or locked facet. Disc spaces:Mild degenerative disc narrowing at C5-6, C6-7, C7-T1 Temporal bones:Negative. No basilar skull fracture Cervical soft tissues:Negative. No prevertebral soft tissue swelling. No focal soft tissue mass or acute abnormality Lung apices:Lucent abnormalities consistent with emphysema or cystic disease. No pneumothorax. No acute abnormality IMPRESSION: 1. Mild degenerative disc disease. Multilevel degenerative facet arthropathy 2. No cervical spine fracture. No acute abnormality Interpreted and Authenticated by: Juma Maurice 12/04/21
[2021-12-04 13:43] LABS: Basophils # (Auto) 0.05 K/mcL (0.00-0.30); Basophils % (Auto) 0.3 % (0.0-2.0); Eosinophils # (Auto) 0.47 K/mcL (0.00-0.70); Eosinophils % (Auto) 3.1 % (0.0-7.0); Hematocrit 31.4 % (40.1-51.0); Hemoglobin 9.6 g/dL (13.7-17.5); Lymphocytes # (Auto) 1.35 K/mcL (1.50-4.80); Mean Cell Volume 96.9 fL (80.0-100.0); Mean Corpuscular HGB Conc 30.6 g/dL (31.0-36.0); Mean Platelet Volume 9.8 fL (7.4-10.4); Monocytes # (Auto) 1.62 K/mcL (0.10-0.90); Monocytes % (Auto) 10.9 % (1.0-12.0); Neutrophils % (Auto) 75.7 % (38.0-78.0); Platelet Count 424 K/mcL (140-440); RBC 3.24 M/mcL (4.63-6.08); WBC 14.9 K/mcL (4.5-11.0)
--- NOTE | 2021-12-04 13:46 | Emergency Department Note ---
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 fib/flutter status post ablation on chronic anticoagulation, severe mitral regurgitation, CKD stage III who presents for recurrent falls and head injury today. Patient lives at home with his who is his primary caregiver. She reports that he has been declining over the last few months with increasing oxygen requirements from 6 to 10 L over the last few weeks. They have had to obtain a larger oxygen concentrator. She also notes that his blood pressures have been low and she has been titrating his torsemide to manage his fluid overload to prevent low blood pressures. She wonders if this may be why he is syncopizing. She states that this morning the caregiver noted that he got up quickly from his wheelchair and pitched forward onto his head. The patient cannot recall syncopizing, and his last memory is when EMS was taken of the hospital. His states that he had another fall last Tuesday evening whereby he syncopized in the shower and fell forward and hit his head and his right hip and he has been complaining of right hip pain since then. They were not seen and evaluated in the hospital at that time. Patient denies F/C/S. He denies increasing productive cough. His states that they have a hospice consultation next week. The patient has been somewhat resistant to this and his notes that they have been trying to clarify his POLST. They have a son who is well versed did medical knowledge and has been assisting with clarifying goals of care. Related Data Home Medications Medication Instructions Recorded Confirmed simvastatin 10 mg tablet 10 mg PO QDAY 01/31/18 11/04/21 apixaban 5 mg tablet (Eliquis) 5 mg PO BID 02/06/20 11/04/21 memantine 5 mg tablet 5 mg PO BID 09/24/20 11/04/21 metoprolol succinate 25 mg 25 mg PO BID 09/24/20 11/04/21 tablet,extended release 24 hr potassium chloride 10 mEq 10 meq PO QDAY 10/30/20 11/04/21 capsule,extended release allopurinol 100 mg tablet 100 mg PO QDAY 12/12/20 11/04/21 cholecalciferol (vitamin D3) 25 2,000 unit PO DAILY 07/09/21 11/04/21 mcg (1,000 unit) tablet (Vitamin D3) metformin 500 mg tablet 500 mg PO BID 07/09/21 11/04/21 omeprazole 20 mg capsule,delayed 20 mg PO QDAY 07/09/21 11/04/21 release tamsulosin 0.4 mg capsule (Flomax) 0.8 mg PO QDAY 07/09/21 11/04/21 amiodarone 400 mg tablet 200 mg PO BID 09/04/21 11/04/21 torsemide 10 mg tablet 20 mg PO QDAY 11/04/21 11/04/21 Previous Rx's Medication Instructions Recorded ipratropium bromide 17 2 puff inhalation Q8H Dyspnea 09/04/21 mcg/actuation HFA aerosol inhaler #12.9 grams (Atrovent HFA) azithromycin 250 mg tablet See Rx Instructions PO .COMPLEX #6 10/09/21 tabs ipratropium bromide 0.02 % 2.5 ml inhalation QID PRN 10/14/21 solution for inhalation shortness of breath or wheezing #150 mL Allergies Allergy/AdvReac Type Severity Reaction Status Date / Time No Known Drug Allergies Allergy Verified 11/04/21 11:25 Review of Systems ROS ROS Narrative: Narrative: All systems ED: reviewed and negative except as stated. [facility] Narrative Patient History Narrative: Narrative: Medical/Surgical/Family History All Active Problems (Updated 12/04/21 @ 15:06 by Jacinta Torres PA-C) Hypoxia (Acute) End stage COPD (Acute) Pneumonia (Acute) Epistaxis (Acute) Hypoxemia (Acute) Chronic dyspnea (Acute) Inability to perform activities of daily living (Acute) Complication of Gallegos catheter (Acute) Pneumatocele of lung (Chronic) Systolic murmur (Chronic) Poor dentition (Chronic) COPD (chronic obstructive pulmonary disease) (Chronic) Pure hypercholesterolemia (Chronic) Osteoarthritis (Chronic) Actinic keratosis (Chronic) Arthritis (Chronic) Spondylosis, lumbar, with myelopathy (Chronic) Kidney disease, chronic, stage III (GFR 30-59 ml/min) (Chronic) Bronchiectasis (Chronic) Pulmonary HTN (Chronic) Nocturnal hypoxia (Acute) Atrial flutter (Chronic) Cholelithiasis without cholecystitis (Acute) Congestive heart failure (CHF) (Chronic) Gastroesophageal reflux disease (Acute) Dysphagia (Chronic) Hypoxemia (Chronic) Pulmonary fibrosis (Chronic) Chronic respiratory failure (Chronic) Dementia (Chronic) Severe mitral regurgitation (Chronic) Alcohol use (Chronic) Medicare annual wellness visit, initial (Acute) Prediabetes (Chronic) Leukocytosis (Acute) Medical History Actinic keratosis Alcohol use 2+ alcoholic beverages per night Arthritis Atrial fibrillation with rapid ventricular response Avulsion of skin of finger Bronchiectasis Chronic respiratory failure CKD (chronic kidney disease), stage II Complication of Gallegos catheter COPD (chronic obstructive pulmonary disease) Dementia 11/17: MMSE Dysphagia Emphysema/COPD Hypoxemia Hypoxemia Inability to perform activities of daily living Kidney disease, chronic, stage III (GFR 30-59 ml/min) Lateral epicondylitis of both elbows Left sided chest pain Leukocytosis Loss of teeth due to extraction Lumbago Medial epicondylitis Medicare annual wellness visit, initial Nicotine dependence Nocturnal hypoxia Osteoarthritis Pneumatocele of lung Poor dentition Prediabetes Pulmonary fibrosis Pulmonary HTN Right ventricular systolic pressure 46 in May 2017 by echo 50-70 ECHO 12/2019 Pure hypercholesterolemia Severe mitral regurgitation Spondylosis, lumbar, with myelopathy Systolic murmur Surgical History History of arthroscopy of knee (~1987) History of cardiac radiofrequency ablation (~04/2020) History of cardioversion (~11/2019) History of nasal surgery Family History Mother Heart disease Father Prostate cancer Liver cancer Sister Cancer Unknown Thyroid disease Breast cancer Diabetes mellitus Social History Smoking Status: Former smoker Alcohol Intake Frequency: 0-2 drinks per day Substance Use: does not use Exam Narrative Narrative: General: AOx3, NAD, nontoxic appearing. Pleasant and conversant. HEENT: PERRL, EOMI, normocephalic. Abrasion noted to the left frontal scalp. Underlying hematoma is noted. Dry mucous membranes. Normal facies and normal dentition. Chest: Symmetric, no pain to palpation Respiratory: Coarse crackles throughout, no wheezing. No respiratory distress. Unlabored breathing. Heart: Regular rate and rhythm, no murmurs/clicks/rubs. Abdomen: Non-tender, Non distended Extremities: Warm and well perfused. No edema. DP 2+ bilaterally. No venous stasis. Neuro: No focal deficits. Cranial nerves II-XII grossly normal. Moves all 4 spontaneously. Skin: Warm dry, no rashes or lesions, no cyanosis. Psych: Normal mood and affect Heme/Lymph: No abnormal bruising Course Course Course Narrative: 81-year-old male with end-stage COPD presents for fall and head injury Reevaluation(s) Reevaluation #1: Obtain CT of the head and neck and CT of the chest abdomen pelvis to rule out fractures, pneumonia Obtain COVID and influenza swab Basic labs Reevaluation #2: COVID and influenza swabs are negative CT of the head, neck, chest/abdomen/pelvis all negative for fractures, bleeding CT of the chest does show increasing interstitial pulmonary infiltrates consistent with UIP versus some other interstitial pneumonitis. White blood cell count is elevated and he has a left shift so I started IV ceftriaxone and oral azithromycin for pneumonia. Creatinine is 2.2, last known creatinine 1.6 on 07/22/2021. I reached out to the hospitalist for admission Vital Signs Vital signs: Vital Signs Temperature 97.0 F 12/04/21 12:02 Pulse Rate 62 12/04/21 12:02 Respiratory Rate 32 H 12/04/21 12:02 Blood Pressure 89/58 12/04/21 12:02 Pulse Oximetry (%) 61 L 12/04/21 12:02 Oxygen Delivery Method 12/04/21 12:02 Oxygen Flow Rate (L/min) 5 12/04/21 12:02 Temperature 97.0 F 12/04/21 12:02 Pulse Rate 55 L 12/04/21 15:05 Respiratory Rate 22 12/04/21 15:05 Blood Pressure 93/68 12/04/21 15:05 Pulse Oximetry (%) 96 12/04/21 15:05 Oxygen Delivery Method 12/04/21 12:12 Oxygen Flow Rate (L/min) 10 12/04/21 12:12 MDM MDM Narrative Medical decision making narrative: End-stage COPD Hypoxia Respiratory failure Pneumonia Patient has been signed out to Dr. Canseco for admission. Goals of care conversationat the bedside with clarification of his CODE STATUS, and he is DNR/DNI. POLST will need to be updated. Lab Data Result diagrams: 12/04/21 12:41 Labs: Lab Results 12/04/21 12/04/21 Range/Units 12:38 12:41 WBC 14.9 H (4.5-11.0) K/mcL RBC 3.24 L (4.63-6.08) M/mcL Hgb 9.6 L (13.7-17.5) g/dL Hct 31.4 L (40.1-51.0) % POC Hct 32.0 L (41-55) MCV 96.9 (80.0-100.0) fL MCH 29.6 (26.0-34.0) pg MCHC 30.6 L (31.0-36.0) g/dL RDW 17.0 H (11.5-14.5) % Plt Count 424 (140-440) K/mcL MPV 9.8 (7.4-10.4) fL Immature Gran % (Auto) 1.0 H (0.0-0.5) % Neut % (Auto) 75.7 (38.0-78.0) % Lymph % (Auto) 9.0 L (15.5-49.0) % [place] % (Auto) 10.9 (1.0-12.0) % Eos % (Auto) 3.1 (0.0-7.0) % Baso % (Auto) 0.3 (0.0-2.0) % Lymph # (Auto) 1.35 L (1.50-4.80) K/mcL [place] # (Auto) 1.62 H (0.10-0.90) K/mcL Eos # (Auto) 0.47 (0.00-0.70) K/mcL Baso # (Auto) 0.05 (0.00-0.30) K/mcL Immature Gran # 0.15 H (0.00-0.05) K/mcl Absolute Neutrophils 11.44 H (1.80-8.00) K/mcL POC Sodium 138 (133-145) POC Potassium 4.0 (3.3-5.1) POC Chloride 96 (96-108) POC Total CO2 28.0 (22-30) POC BUN 28 H (6-20) POC Creatinine 2.2 H (0.6-1.2) POC Glucose 151 H (70-105) POC WB Ioniz Calcium 1.11 L (1.16-1.32) ED POC Tests ED POC Tests: TOSHA - Influenza A Negative TOSHA - Influenza B Negative TOSHA - SARS Antigen Negative Discharge Plan Patient/Caregiver Discharge Instructions Pt seen by ROTATING FIELD ASSEMBLER/PA only: Yes Clinical Impression: Hypoxia, End stage COPD, Pneumonia Patient Disposition: Xfer As Inpt ([facility]) Condition: Fair Follow up with: Geovanny Mckeon NP [Primary Care Provider] - Prescriptions: No Action memantine 5 mg tablet 5 mg PO BID potassium chloride 10 mEq capsule, extended release 10 meq PO QDAY tamsulosin [Flomax] 0.4 mg capsule 0.8 mg PO QDAY omeprazole 20 mg capsule,delayed release(DR/EC) 20 mg PO QDAY metformin 500 mg tablet 500 mg PO BID amiodarone 400 mg tablet 200 mg PO BID torsemide 10 mg tablet 20 mg PO QDAY metoprolol succinate 25 mg tablet extended release 24 hr 25 mg PO BID ipratropium bromide 0.02 % solution 2.5 ml inhalation QID PRN (Reason: shortness of breath or wheezing) Qty: 150 12RF Rx Instructions: Aerosolize and inhale 1 vial as often as every 4 hours as needed for shortness of breath. Rinse and clear mouth after. Eliquis 5 mg tablet 5 mg PO BID allopurinol 100 mg tablet 100 mg PO QDAY Atrovent HFA 17 mcg/actuation HFA aerosol inhaler 2 puff inhalation Q8H Qty: 12.9 1RF Rx Instructions: Take 2 puffs 3 times a day. May adjust dose lower as needed for tolerance. simvastatin 10 mg tablet 10 mg PO QDAY cholecalciferol (vitamin D3) [Vitamin D3] 25 mcg (1,000 unit) tablet 2,000 unit PO DAILY azithromycin 250 mg tablet See Rx Instructions .ROUTE .COMPLEX Qty: 6 0RF Rx Instructions: For 250 mg dose pack: take 500 mg today (day 1), then 250 mg for 4 days (days 2-5)
[2021-12-04] MEDS ORDERED: cefTRIAXone 1 GM VIAL IV ONE (13:47)
[2021-12-04] MEDS ORDERED: AZITHROMYCIN 250 MG TABLET PO ONE ×2 (13:48→14:47)
[2021-12-04] MEDS ORDERED: HYDROcodone/APAP 5/325MG TABLET PO ONE ×2 (13:49→14:47)
--- NOTE | 2021-12-04 13:51 | Cat Scan Report ---
INDICATION: hypoxia, severe fibrosis, COPD COMPARISON: Previous CT scan dated 08/19/2019. This is performed at an outside institution. TECHNIQUE: Axial images were obtained through the chest,abdomen and pelvis. Sagittally and coronally reformatted images. FINDINGS: Chest CT:Previous examination demonstrated bilateral pleural effusions. There are bilateral areas of pulmonary parenchymal consolidation. Lungs:Diffusely abnormal lungs. There is paraseptal emphysema. There is cystic abnormality which is probably centrilobular emphysema. There are diffuse ground glass infiltrates throughout both lungs. There is honeycombing with bibasilar predominance. There is mild bilateral bronchiectasis with bilateral lower lobe predominance. There is intralobular septal thickening. These findings are consistent with a UIP pattern. Groundglass infiltrates are slightly atypical but may represent superimposed pneumonia or other processes including hypersensitivity pneumonia. Mediastinum:Multiple pretracheal and perivascular lymph nodes. Largest pretracheal node measures 2.6 cm maximally. Heart:No cardiomegaly. No pericardial effusion. No significant coronary artery calcification Pleura:No pleural effusion. No pleural-based mass or calcification Axilla, supraclavicular regions, chest wall:No pathologic axillary or supraclavicular lymphadenopathy Musculoskeletal:No thoracic compression fracture. No lytic or sclerotic lesions. Sternum and ribs are negative Abdomen/Pelvis: Liver:Negative to the limits of noncontrast enhanced examination. No detectable mass. Liver contour is smooth Gallbladder, bilary:At least one calcified gallstone. There may be biliary sludge. No gallbladder wall thickening or pericholecystic fluid Spleen:No splenomegaly. No perisplenic hemorrhage. No evidence for splenic injury Pancreas:No pancreatic mass. No pancreatic duct dilatation. No peripancreatic abnormality Adrenal glands:Negative Kidneys,ureters,bladder:No solid renal mass. No hydronephrosis. No obstructing or nonobstructing calculi. No hydroureter. No ureteral calculus. No bladder stone. No detectable bladder mass. Gastrointestinal:No detectable colonic mass. There is sigmoid diverticulosis. No evidence for diverticulitis Negative small bowel. No mechanical small bowel obstruction. No bowel wall thickening. No focal abnormality. Negative stomach and duodenum. No focal abnormality. Appendix: The appendix is negative Vascular:No abdominal aortic aneurysm. There is calcification of the abdominal aorta. Origins of the superior mesenteric artery and celiac artery are normal. Lymphatic:No retroperitoneal or pathologic mesenteric adenopathy Mesentery, peritoneum:No intra-peritoneal fluid. No intra-abdominal abscess. No pneumoperitoneum. There is no hemoperitoneum. No pneumoperitoneum Reproductive:Prostate is not significantly enlarged Musculoskeletal:No compression fractures. No lytic lesions. Sacrum, pelvis, hips are negative No anterior abdominal wall or inguinal hernia. IMPRESSION: 1. No posttraumatic abnormality. 2. Severe lung disease. There are diffuse groundglass infiltrates as well as emphysematous change and findings consistent with pulmonary fibrosis. IPF is possible. 3. Nonspecific mediastinal lymphadenopathy 4. Cholelithiasis The exam was performed using radiation dose optimization techniques including, but not limited to, automated exposure control, adjustment of the mA and/or kV according to patient size and use of iterative reconstruction technique. Interpreted and Authenticated by: Juma Maurice 12/04/21
[2021-12-04] MEDS ORDERED: cefTRIAXone 1 GM VIAL ONE (14:46)
--- NOTE | 2021-12-04 15:10 | Internal Med History&Physical ---
HPI History of Present Illness Patient information: Note initiated : 12/04/21 at 2:40 pm Service Date, if different from initiated Date: [] Patient: Mat Elam a 81 y/o M admitted on for increased falls. Chief Complaint: [] History of present illness: Mr. Elam is a 81 year old M Presents the ED after a fall. Patient was with a special weapons and tactics officer in the living room and the special weapons and tactics officer turned around for a moment and that sound like the patient must of try to get up and then he fell hitting his head on the coffee table. This appeared to be a syncopal event. He fell last Tuesday as well when he was getting up from the toilet and he passed out. He typically was on 4 to 5 L of oxygen but over the past few months has gone up to 6 to 7 L. He has a history of pulmonary fibrosis emphysema and pulmonary hypertension and follows with Dr. Ceballos. Hospice has been discussed with them and hospice is supposed to meet with him next week. Patient has no complaints but his says he has become progressively weaker. Since his hospitalization at [place] in June he has been wheelchair-bound but is able to transfer on his own. He also follows with cardiology for paroxysmal H fibrillation diastolic heart failure. He has a chronic cough and shortness of breath that he feels is baseline. Denies fever chills. his says that he has had some low blood pressures at time and she believes that the time where he passes out especially when he gets up from a sitting position quickly. He takes amiodarone and torsemide and Toprol as medications that could be contributing to his low blood pressures. Per the his heart rate runs in the 50s and does not run any lower but will sometimes run higher. Also carries a history of chronic kidney disease. There was a measured pulse ox of 61 in the ED and not sure if that is accurate but there was another 1 that was 85% as well. Creatinine is 2.2 which appears to be up maybe a bit above his baseline which I think is mid to high twos. CT chest abdomen pelvis showed no posttraumatic abnormality but did show severe lung disease with diffuse groundglass infiltrates as well as emphysema edematous changes. Did have leukocytosis but this is seems chronic per old labs but he did have a normal level on July 22. Question is with the hypoxia is or an underlying pneumonia bacterial or viral that is currently present. Review of Systems: Pertinent positives as above. Denies headache/f ever/chills/nausea/vomiting/chest or abdominal pain/cough/dyspnea/diarrhea. Remaining 10 point review of system reviewed negative PFSH PFSH All Active Problems (Updated 12/04/21 @ 15:06 by Jacinta Torres PA-C) Hypoxia (Acute) End stage COPD (Acute) Pneumonia (Acute) Epistaxis (Acute) Hypoxemia (Acute) Chronic dyspnea (Acute) Inability to perform activities of daily living (Acute) Complication of Gallegos catheter (Acute) Pneumatocele of lung (Chronic) Systolic murmur (Chronic) Poor dentition (Chronic) COPD (chronic obstructive pulmonary disease) (Chronic) Pure hypercholesterolemia (Chronic) Osteoarthritis (Chronic) Actinic keratosis (Chronic) Arthritis (Chronic) Spondylosis, lumbar, with myelopathy (Chronic) Kidney disease, chronic, stage III (GFR 30-59 ml/min) (Chronic) Bronchiectasis (Chronic) Pulmonary HTN (Chronic) Nocturnal hypoxia (Acute) Atrial flutter (Chronic) Cholelithiasis without cholecystitis (Acute) Congestive heart failure (CHF) (Chronic) Gastroesophageal reflux disease (Acute) Dysphagia (Chronic) Hypoxemia (Chronic) Pulmonary fibrosis (Chronic) Chronic respiratory failure (Chronic) Dementia (Chronic) Severe mitral regurgitation (Chronic) Alcohol use (Chronic) Medicare annual wellness visit, initial (Acute) Prediabetes (Chronic) Leukocytosis (Acute) Medical History Actinic keratosis Alcohol use 2+ alcoholic beverages per night Arthritis Atrial fibrillation with rapid ventricular response Avulsion of skin of finger Bronchiectasis Chronic respiratory failure CKD (chronic kidney disease), stage II Complication of Gallegos catheter COPD (chronic obstructive pulmonary disease) Dementia 11/17: MMSE 24/30 Dysphagia Emphysema/COPD Hypoxemia Hypoxemia Inability to perform activities of daily living Kidney disease, chronic, stage III (GFR 30-59 ml/min) Lateral epicondylitis of both elbows Left sided chest pain Leukocytosis Loss of teeth due to extraction Lumbago Medial epicondylitis Medicare annual wellness visit, initial Nicotine dependence Nocturnal hypoxia Osteoarthritis Pneumatocele of lung Poor dentition Prediabetes Pulmonary fibrosis Pulmonary HTN Right ventricular systolic pressure 46 in May 2017 by echo 50-70 ECHO 12/2019 Pure hypercholesterolemia Severe mitral regurgitation Spondylosis, lumbar, with myelopathy Systolic murmur Surgical History History of arthroscopy of knee (~1987) History of cardiac radiofrequency ablation (~04/2020) History of cardioversion (~11/2019) History of nasal surgery Family History Mother Heart disease Father Prostate cancer Liver cancer Sister Cancer Unknown Thyroid disease Breast cancer Diabetes mellitus Social History marital status: occupational status: retired smoking status: Former smoker quit date: 05/30/07 pack-years: 50 alcohol intake frequency: 0-2 drinks per day substance use type: does not use MEDS/ALLERGIES Home Medications and Allergies Home Medications Medication Instructions Recorded Confirmed Type simvastatin 10 mg tablet 10 mg PO QDAY 01/31/18 11/04/21 History apixaban 5 mg tablet (Eliquis) 5 mg PO BID 02/06/20 11/04/21 History memantine 5 mg tablet 5 mg PO BID 09/24/20 11/04/21 History metoprolol succinate 25 mg 25 mg PO BID 09/24/20 11/04/21 History tablet,extended release 24 hr potassium chloride 10 mEq 10 meq PO QDAY 10/30/20 11/04/21 History capsule,extended release allopurinol 100 mg tablet 100 mg PO QDAY 12/12/20 11/04/21 History cholecalciferol (vitamin D3) 25 2,000 unit PO DAILY 07/09/21 11/04/21 History mcg (1,000 unit) tablet (Vitamin D3) metformin 500 mg tablet 500 mg PO BID 07/09/21 11/04/21 History omeprazole 20 mg capsule,delayed 20 mg PO QDAY 07/09/21 11/04/21 History release tamsulosin 0.4 mg capsule (Flomax) 0.8 mg PO QDAY 07/09/21 11/04/21 History amiodarone 400 mg tablet 200 mg PO BID 09/04/21 11/04/21 History ipratropium bromide 17 2 puff inhalation Q8H Dyspnea 09/04/21 11/04/21 Rx mcg/actuation HFA aerosol inhaler #12.9 grams (Atrovent HFA) azithromycin 250 mg tablet See Rx Instructions PO .COMPLEX #6 10/09/21 11/04/21 Rx tabs ipratropium bromide 0.02 % 2.5 ml inhalation QID PRN 10/14/21 11/04/21 Rx solution for inhalation shortness of breath or wheezing #150 mL torsemide 10 mg tablet 20 mg PO QDAY 11/04/21 11/04/21 History Allergies Allergy/AdvReac Type Severity Reaction Status Date / Time No Known Drug Allergies Allergy Verified 11/04/21 11:25 EXAM Constitutional Vitals: Temp Pulse Resp BP Pulse Ox O2 Del Method O2 Flow Rate 97.0 F 55 L 21 105/58 94 10 12/04/21 12:02 12/04/21 14:20 12/04/21 14:20 12/04/21 14:18 12/04/21 14:20 12/04/21 12:12 12/04/21 12:12 Exam: General: Alert, Awake, No acute Distress Eyes/N/T: EOMI, PERRL, Head/Neck: neck supple, normocephalic atraumatic CV: RRR, No murmurs, normal s1/s2 Pulm: fine rales b/l and mild wheezing b/l Abd: soft, nontender, +BS x4 Ext: no clubbing/cyanosis, trace-mild b/l LE edema Neuro: Alert, no focal deficits, moves all extremities, CN 2-12 grossly intact, symmetrical strength b/l upper/lower, Skin: warm/dry DATA Data Completed and Pending Labs: Labs from last 24 hours 12/04/21 12/04/21 12/04/21 14:15 12:41 12:38 WBC 14.9 H RBC 3.24 L Hgb 9.6 L Hct 31.4 L POC Hct 32.0 L MCV 96.9 MCH 29.6 MCHC 30.6 L RDW 17.0 H Plt Count 424 MPV 9.8 Immature Gran % (Auto) 1.0 H Neut % (Auto) 75.7 Lymph % (Auto) 9.0 L [place] % (Auto) 10.9 Eos % (Auto) 3.1 Baso % (Auto) 0.3 Lymph # (Auto) 1.35 L [place] # (Auto) 1.62 H Eos # (Auto) 0.47 Baso # (Auto) 0.05 Immature Gran # 0.15 H Absolute Neutrophils 11.44 H POC Sodium 138 POC Potassium 4.0 POC Chloride 96 POC Total CO2 28.0 POC BUN 28 H POC Creatinine 2.2 H POC Glucose 151 H POC WB Ioniz Calcium 1.11 L Urine Color Pending Urine Appearance Pending Urine pH Pending Ur Specific [place] Pending Urine Protein Pending Urine Glucose (UA) Pending Urine Ketones Pending Urine Occult Blood Pending Urine Nitrate Pending Urine Bilirubin Pending Urine Urobilinogen Pending Ur Leukocyte Esterase Pending A/P Narrative A/P Narrative: A: *Fall/syncope/generalized weakness/debility/poor functional status: -Has been wheelchair-bound since hospitalization in June -syncope suspected to be llood pressure/medication related *Hypotension,mild: pt on torpol/torsemide/amiodarone *Acute on chronic hypoxic respiratory failure -pt on 6-7L@home, is on 9L in ED *possible underlying PNA: *End-stage COPD/pulmonary fibrosis/pulmonary hypertension: *ANUPAMA on CKD III: *Anemia, chronic: *PAF: On apixaban/amiodarone/Toprol *h/o dCHF: On BB/torsemide *Mild dementia: *GERD: *Goals of care: hospice to meet with pt/family next week P: -Empiric antibiotics for now, pending SC -IS/Acapella, prn nebs (no albuterol, will try xopenex) -RVP/Myco pending -check man diff and pct -O2 supp, wean as able -pt has continued right hip pain from tuesday fall, obtain xray -hold torsemide, monitor i/o's, low-volume IV hydration today -decrease BB and amiodarone -CM for placement -PT/OT -Home medication reconciliation -ppx: Eliquis / home ppi DNR Time Spent With Patient Time: Total time spent is greater than 50% in coordination of care (as documented) at patient's floor/unit and/or counseling patient: Total time spent with greater than 50% in coordination of care (as documented) at patient's floor/unit and/or counseling patient:: Greater than 70 minutes
[2021-12-04 15:23] LABS: ALT/SGPT 49 U/L (<40); AST/SGOT 48 U/L (<40); Albumin 3.2 gm/dL (3.2-5.2); Alkaline Phosphatase 71 U/L (39-117); Bilirubin,Direct < 0.2 mg/dL (0-0.3); Bilirubin,Total 0.5 mg/dL (0.1-1.0); Globulin 4.1 gm/dL (2.2-3.7)
[2021-12-04 15:40] LABS: Appearance,Urine CLEAR (Clear); Bilirubin,Urine Negative (Negative); Color,Urine STRAW; Culture Indicated,Urine No; Glucose,Urine (UA) Negative (Negative); Ketones,Urine Negative (Negative); Leukocyte Esterase,Urine 25 /uL (Negative); Nitrate,Urine Negative (Negative); Protein,Urine Negative (Negative); Specific Gravity,Urine 1.006 (1.000-1.035); Urine Blood Negative (Negative); Urine Hyaline Cast 6 /lph (0-2); Urine RBC < 1 /hpf (0-3); Urine Squamous Epithelial Cell 0 /hpf (0-4); Urine WBC 2 /hpf (0-4); Urobilinogen,Urine Negative
[2021-12-04 15:55] LABS: Albumin 3.1 gm/dL (3.2-5.2); Calcium 9.3 mg/dL (8.6-10.4); Phosphorous 3.8 mg/dL (2.5-4.5)
[2021-12-04 16:34] LABS: Anisocytosis 1+ (None Seen); Band Neutrophils % 1 % (0-10); Basophils % (Manual) 1 % (0-2); Eosinophils % (Manual) 2 % (0-7); Lymphocytes % 10 % (15-49); Monocytes % (Manual) 9 % (1-12); Platelet Estimate NORMAL (Normal); RBC Morphology ABNORMAL (Normal); Segmented Neutrophils % 77 % (38-78)
[2021-12-04] MEDS ORDERED: 0.9 % SODIUM CHLORIDE 500 ML IV ONE (16:58)
[2021-12-04] MEDS ORDERED: POTASSIUM CHLORIDE 20 MEQ TABLET PO PRN ×2 (16:58)
[2021-12-04] MEDS ORDERED: ONDANSETRON 4 MG/2 ML VIAL IV PRN (16:58)
[2021-12-04] MEDS ORDERED: MAGNESIUM SULFATE 2 GM/50 ML BAG IV PRN (16:58)
[2021-12-04] MEDS ORDERED: POTASSIUM CHLORIDE 40 MEQ in DEXTROSE 5% IN WATER 500 ML IV PRN (16:58)
[2021-12-04] MEDS ORDERED: METOPROLOL TARTRATE 5 MG/5 ML VIAL IV PRN (16:58)
[2021-12-04] MEDS ORDERED: POLYETHYLENE GLYCOL 3350 17 GM PACKET PO PRN (16:58)
[2021-12-04] MEDS ORDERED: SENNOSIDES 1 TABLET PO PRN (16:58)
[2021-12-04] MEDS ORDERED: cefTRIAXone 1 GM VIAL IV SCH (17:15)
[2021-12-04] MEDS: DOCUSATE SODIUM 100 MG CAPSULE PO SCH (20:40)
[2021-12-04] MEDS: 0.9 % SODIUM CHLORIDE 10 ML SYRINGE IV SCH ×2 (20:41→23:45)
[2021-12-04] MEDS: BUDESONIDE 0.5 MG/2 ML AMPUL.NEB NEB SCH (20:54)
[2021-12-04] MEDS: ACETAMINOPHEN 325 MG TABLET PO PRN (22:03)
[2021-12-04] MEDS ORDERED: APIXABAN 5 MG TABLET PO ONE ×2 (22:26→22:45)
[2021-12-05] MEDS: 0.9 % SODIUM CHLORIDE 10 ML SYRINGE IV SCH ×4 (03:45→22:00)
[2021-12-05 07:04] LABS: Basophils # (Auto) 0.05 K/mcL (0.00-0.30); Basophils % (Auto) 0.4 % (0.0-2.0); Eosinophils # (Auto) 0.46 K/mcL (0.00-0.70); Eosinophils % (Auto) 3.4 % (0.0-7.0); Hematocrit 28.6 % (40.1-51.0); Hemoglobin 8.9 g/dL (13.7-17.5); Lymphocytes # (Auto) 1.79 K/mcL (1.50-4.80); Lymphocytes % (Auto) 13.4 % (15.5-49.0); Mean Cell Volume 95.3 fL (80.0-100.0); Mean Corpuscular HGB Conc 31.1 g/dL (31.0-36.0); Mean Platelet Volume 9.7 fL (7.4-10.4); Monocytes # (Auto) 1.56 K/mcL (0.10-0.90); Monocytes % (Auto) 11.6 % (1.0-12.0); Neutrophils % (Auto) 70.1 % (38.0-78.0); Platelet Count 367 K/mcL (140-440); WBC 13.4 K/mcL (4.5-11.0)
[2021-12-05 07:23] LABS: ALT/SGPT 44 U/L (<40); AST/SGOT 39 U/L (<40); Albumin 2.8 gm/dL (3.2-5.2); Albumin/Globulin Ratio 0.8 (1.0-2.3); Alkaline Phosphatase 61 U/L (39-117); Bilirubin,Direct < 0.2 mg/dL (0-0.3); Bilirubin,Total 0.3 mg/dL (0.1-1.0); Blood Urea Nitrogen 30 mg/dL (8-23); Calcium 8.7 mg/dL (8.6-10.4); Carbon Dioxide 30 mmol/L (22-30); Chloride 99 mmol/L (96-108); Globulin 3.7 gm/dL (2.2-3.7); Glomerular Filtration Rate 33; Glucose 98 mg/dL (70-105); Lactate Dehydrogenase 336 U/L (135-225); Phosphorous 4.2 mg/dL (2.5-4.5); Triglycerides 91 mg/dL (<150); Uric Acid 8.8 mg/dL (2.5-8.0)
[2021-12-05] MEDS: PANTOPRAZOLE 40 MG TABLET PO SCH (07:25)
--- NOTE | 2021-12-05 08:00 | Internal Med Progress Note ---
SUBJECTIVE Subjective Patient information: Note initiated : 12/05/21 at 7:52 am Service Date, if different from initiated Date: [] Patient: Mat Elam a 81 y/o M admitted on 12/04/21 for increased falls. Chief Complaint: [] Interval history: History of present illness: Mr. Elam is a 81 year old M Presents the ED after a fall. Patient was with a contact center analyst in the living room and the contact center analyst turned around for a moment and that sound like the patient must of try to get up and then he fell hitting his head on the coffee table. This appeared to be a syncopal event. He fell last Tuesday as well when he was getting up from the toilet and he passed out. He typically was on 4 to 5 L of oxygen but over the past few months has gone up to 6 to 7 L. He has a history of pulmonary fibrosis emphysema and pulmonary hypertension and follows with Dr. Ceballos. Hospice has been discussed with them and hospice is supposed to meet with him next week. Patient has no complaints but his says he has become progressively weaker. Since his hospitalization at [place] in June he has been wheelchair-bound but is able to transfer on his own. He also follows with cardiology for paroxysmal H fibrillation diastolic heart failure. He has a chronic cough and shortness of breath that he feels is baseline. Denies fever chills. his says that he has had some low blood pressures at time and she believes that the time where he passes out especially when he gets up from a sitting position quickly. He takes amiodarone and torsemide and Toprol as medications that could be contributing to his low blood pressures. Per the his heart rate runs in the 50s and does not run any lower but will sometimes run higher. Also carries a history of chronic kidney disease. There was a measured pulse ox of 61 in the ED and not sure if that is accurate but there was another 1 that was 85% as well. Creatinine is 2.2 which appears to be up maybe a bit above his baseline which I think is mid to high twos. CT chest abdomen pelvis showed no posttraumatic abnormality but did show severe lung disease with diffuse groundglass infiltrates as well as emphysema edematous changes. Did have leukocytosis but this is seems chronic per old labs but he did have a normal level on July 22. Question is with the hypoxia is or an underlying pneumonia bacterial or viral that is currently present. 12/05 Patient on 9 L still. Blood pressure systolic 90s to low 100s. Has usual cough and Shortness of breath. Decreased home Toprol and amiodarone. Renal function slightly improved gentle IV fluids today in follow-up. CRP elevated monitor Review of Systems: denies headache/fever/chills/nausea/vomiting/chest or abdominal pain/diarrhea. Otherwise see above. Constitutional Vitals: Vital Signs Temp Pulse Resp BP Pulse Ox O2 Del Method O2 Flow Rate 97.0 F 54 L 13 99/61 93 9 12/05/21 04:02 12/05/21 06:01 12/05/21 06:01 12/05/21 06:01 12/05/21 06:01 12/05/21 02:40 12/05/21 06:01 Period Temp Pulse Resp BP Sys/Olivares Pulse Ox O2 Del Method O2 Flow Rate Last 24 Hr 96.8 F-97.1 F 52-80 13-96 61-155/46-135 61-99 High Flow Nasal Cannula-Oxymask 0-15 Intake and Output 12/04/21 12/05/21 12/05/21 21:59 05:59 13:59 Intake Total 120 990 Output Total 250 Balance 120 740 Weight 76.385 kg Intake & Output: Intake & Output 12/04/21 12/05/21 12/05/21 21:59 05:59 13:59 Intake Total 120 990 Output Total 250 Balance 120 740 Weight 76.385 kg Intake: IV 500 Sodium Chloride 0.9% 500 ml @ 500 60 mls/hr IV .[id number] ONE Rx#: [id number] Oral 120 240 IV - Manual Only 250 Output: Void Amount 250 Other: Stool Size Large Stool Color Brown Green Stool Consistency Loose Exam: General: Alert, Awake, No acute Distress Eyes/N/T: EOMI, Head/Neck: neck supple, CV: RRR, No murmurs, Pulm: fine rales b/l and mild wheezing b/l Abd: soft, nontender, +BS x4 Ext: no clubbing/cyanosis, trace-mild b/l LE edema Neuro: Alert, no focal deficits, moves all extremities, Skin: warm/dry OBJ DATA Labs CBC & Chem 7: 12/05/21 06:14 12/05/21 06:14 Labs: Abnormal Lab Results 12/05/21 12/05/21 12/04/21 06:14 06:14 14:15 WBC 13.4 H RBC 3.00 L Hgb 8.9 L Hct 28.6 L POC Hct MCHC RDW 17.0 H Immature Gran % (Auto) 1.1 H Lymph % (Auto) 13.4 L Lymph # (Auto) [place] # (Auto) 1.56 H Lymphocytes % Immature Gran # 0.15 H Absolute Neutrophils 9.54 H RBC Morphology Anisocytosis Chloride POC BUN BUN 30 H Creatinine 1.9 H POC Creatinine Glucose POC Glucose Uric Acid 8.8 H POC WB Ioniz Calcium AST ALT 44 H Lactate Dehydrogenase 336 H C-Reactive Protein 9.70 H Albumin 2.8 L Globulin Albumin/Globulin Ratio 0.8 L Procalcitonin Ur Leukocyte Esterase 25 A Hyaline Casts 6 H 12/04/21 12/04/21 12/04/21 12:41 12:41 12:41 WBC RBC Hgb Hct POC Hct MCHC RDW Immature Gran % (Auto) Lymph % (Auto) Lymph # (Auto) [place] # (Auto) Lymphocytes % Immature Gran # Absolute Neutrophils RBC Morphology Anisocytosis Chloride 95 L POC BUN BUN 31 H Creatinine 2.1 H POC Creatinine Glucose 157 H POC Glucose Uric Acid POC WB Ioniz Calcium AST 48 H ALT 49 H Lactate Dehydrogenase C-Reactive Protein 10.50 H Albumin 3.1 L Globulin 4.1 H Albumin/Globulin Ratio Procalcitonin 0.14 H Ur Leukocyte Esterase Hyaline Casts 12/04/21 12/04/21 12/04/21 12:41 12:41 12:38 WBC 14.9 H RBC 3.24 L Hgb 9.6 L Hct 31.4 L POC Hct 32.0 L MCHC 30.6 L RDW 17.0 H Immature Gran % (Auto) 1.0 H Lymph % (Auto) 9.0 L Lymph # (Auto) 1.35 L [place] # (Auto) 1.62 H Lymphocytes % 10 L Immature Gran # 0.15 H Absolute Neutrophils 11.44 H RBC Morphology Abnormal A Anisocytosis 1+ A Chloride POC BUN 28 H BUN Creatinine POC Creatinine 2.2 H Glucose POC Glucose 151 H Uric Acid POC WB Ioniz Calcium 1.11 L AST ALT Lactate Dehydrogenase C-Reactive Protein Albumin Globulin Albumin/Globulin Ratio Procalcitonin Ur Leukocyte Esterase Hyaline Casts Meds: Medications Acetaminophen (Acetaminophen 325 Mg Tablet) 650 mg PO Q6HP PRN; Protocol PRN Reason: Per Pain Protocol/Fever > 101 Last Admin: 12/04/21 22:03 Dose: 650 mg Hydrocodone Bitart/Acetaminophen (Hydrocodone/Apap 5/325mg Tablet) 1 tab PO Q4HP PRN PRN Reason: PAIN LEVEL 3-6 Allopurinol (Allopurinol 100 Mg Tablet) 100 mg PO QDAY [facility] Amiodarone HCl (Amiodarone Hcl 200 Mg Tablet) 200 mg PO DAILY [facility] Apixaban (Apixaban 5 Mg Tablet) 5 mg PO BID [facility] Budesonide (Budesonide 0.5 Mg/2 Ml Ampul.Neb) 0.5 mg NEB Q12 [facility] Last Admin: 12/04/21 20:54 Dose: 0.5 mg Docusate Sodium (Docusate Sodium 100 Mg Capsule) 100 mg PO BID [facility] Last Admin: 12/04/21 20:40 Dose: 100 mg Potassium Chloride 40 meq/ (Dextrose) 520 mls @ 130 mls/hr IV UD PRN PRN Reason: Potassium < 3 Magnesium Sulfate (Magnesium Sulfate) 2 gm in 50 mls @ 50 mls/hr IV UD PRN PRN Reason: Magnesium </= 1.6 Ceftriaxone Sodium 2 gm/ (Dextrose) 50 mls @ 100 mls/hr IV Q24H [facility]; Protocol Azithromycin 500 mg/ Dextrose 250 mls @ 250 mls/hr IV Q24H [facility]; Protocol Stop: 12/06/21 09:59 Ipratropium [place] (Ipratropium 2.5 Ml Ampul.Neb) 2.5 ml NEB Q4HRT PRN PRN Reason: dyspnea Levalbuterol HCl (Levalbuterol 0.63 Mg/3 Ml Ampul.Neb) 0.63 mg NEB Q4HRT PRN PRN Reason: dyspnea Memantine (Memantine 10 Mg Tablet) 5 mg PO BID [facility] Metoprolol Succinate (Metoprolol Succinate 25 Mg Tab.Xl.24h) 12.5 mg PO BID [facility] Metoprolol Tartrate (Metoprolol Tartrate 5 Mg/5 Ml Vial) 5 mg IV Q2HP PRN PRN Reason: Tachyarrhythmias HR>110 Ondansetron HCl (Ondansetron 4 Mg/2 Ml Vial) 4 mg IV Q4HP PRN PRN Reason: Nausea And Vomiting Pantoprazole Sodium (Pantoprazole 40 Mg Tablet) 40 mg PO QAMAC [facility] Last Admin: 12/05/21 07:25 Dose: 40 mg Polyethylene Glycol (Polyethylene Glycol 3350 17 Gm Packet) 17 gm PO DAILYP PRN PRN Reason: Constipation Potassium Chloride (Potassium Chloride 20 Meq Tablet) 40 meq PO UD PRN PRN Reason: Potssium is 3-3.5 Potassium Chloride (Potassium Chloride 20 Meq Tablet) 40 meq PO UD PRN PRN Reason: Potassium < 3 Senna (Sennosides 1 Tablet) 2 tab PO DAILYP PRN PRN Reason: Constipation Simvastatin (Simvastatin 10 Mg Tablet) 10 mg PO QDAY [facility] Sodium Chloride (0.9 % Sodium Chloride 10 Ml Syringe) 10 ml IV Q8 [facility] Last Admin: 12/05/21 03:45 Dose: 10 ml Tamsulosin HCl (Tamsulosin 0.4 Mg Capsule) 0.8 mg PO QDAY [facility] A/P Narrative A/P Narrative: A: *Fall/syncope/generalized weakness/debility/poor functional status: -Has been wheelchair-bound since hospitalization in June -syncope suspected to be blood pressure/medication related *Hypotension,mild: pt on torpol/torsemide/amiodarone *Acute on chronic hypoxic respiratory failure: 2/2 progression of chronic dz vs pna+chronic -pt on 6-7L@home, is on 9L currenlty, up to 15L in ED *End-stage COPD/pulmonary fibrosis/pulmonary hypertension: *possible underlying PNA: -RV/covid neg, Myco/Strep -mild leukocytosis w/o bandemia or fevers *ANUPAMA on CKD III: 2/2 volume depletion *Anemia, chronic: *PAF: On apixaban/amiodarone/Toprol *h/o dCHF: On BB/torsemide *Mild dementia: *GERD: *Goals of care: hospice to meet with pt/family next week P: -Empiric antibiotics for now, pending [place] -IS/Acapella, prn nebs (no albuterol, will try xopenex) -Myco pending -gentle IVF, f/u renal fxn -O2 supp, wean as able -hold torsemide, monitor i/o's, -decrease BB and amiodarone -CM for placement -PT/OT -ppx: Eliquis / home ppi DNR Time Spent With Patient Time: Total time spent is greater than 50% in coordination of care (as documented) at patient's floor/unit and/or counseling patient: Total time spent with greater than 50% in coordination of care (as documented) at patient's floor/unit and/or counseling patient:: 25 - 35 minutes
[2021-12-05] MEDS ORDERED: SIMVASTATIN 10 MG TABLET PO SCH (09:00)
[2021-12-05] MEDS ORDERED: AMIODARONE HCL 200 MG TABLET PO SCH (09:00)
[2021-12-05] MEDS ORDERED: 0.9 % SODIUM CHLORIDE 500 ML IV ONE (09:25)
[2021-12-05] MEDS: BUDESONIDE 0.5 MG/2 ML AMPUL.NEB NEB SCH ×2 (09:28→21:08)
[2021-12-05] MEDS: ALLOPURINOL 100 MG TABLET PO SCH (10:52)
[2021-12-05] MEDS: METOPROLOL SUCCINATE 25 MG TAB.XL.24H PO SCH ×2 (10:52→21:11)
[2021-12-05] MEDS: TAMSULOSIN 0.4 MG CAPSULE PO SCH (10:52)
[2021-12-05] MEDS: cefTRIAXone 2 GM in DEXTROSE 5% IN WATER 50 ML IV SCH (10:53)
[2021-12-05] MEDS: APIXABAN 5 MG TABLET PO SCH ×2 (10:53→21:12)
[2021-12-05] MEDS: MEMANTINE 10 MG TABLET PO SCH ×2 (11:13→21:11)
[2021-12-05] MEDS: AZITHROMYCIN 500 MG in DEXTROSE 5% IN WATER 250 ML IV SCH (11:13)
[2021-12-05] MEDS: DOCUSATE SODIUM 100 MG CAPSULE PO SCH ×2 (11:33→21:18)
[2021-12-05] MEDS: ACETAMINOPHEN 325 MG TABLET PO PRN (21:12)
[2021-12-05] MEDS: MELATONIN 3 MG TABLET PO SCH (21:14)
[2021-12-06] MEDS: HYDROcodone/APAP 5/325MG TABLET PO PRN ×2 (01:04→20:46)
[2021-12-06] MEDS: 0.9 % SODIUM CHLORIDE 10 ML SYRINGE IV SCH ×4 (05:05→20:39)
[2021-12-06 06:20] LABS: Basophils # (Auto) 0.03 K/mcL (0.00-0.30); Basophils % (Auto) 0.2 % (0.0-2.0); Eosinophils % (Auto) 4.6 % (0.0-7.0); Hematocrit 28.4 % (40.1-51.0); Hemoglobin 8.6 g/dL (13.7-17.5); Lymphocytes # (Auto) 1.36 K/mcL (1.50-4.80); Lymphocytes % (Auto) 10.3 % (15.5-49.0); Mean Cell Volume 97.9 fL (80.0-100.0); Mean Corpuscular HGB Conc 30.3 g/dL (31.0-36.0); Mean Platelet Volume 9.6 fL (7.4-10.4); Monocytes # (Auto) 1.72 K/mcL (0.10-0.90); Monocytes % (Auto) 13.1 % (1.0-12.0); Platelet Count 369 K/mcL (140-440); Red Cell Distribution Width 17.3 % (11.5-14.5); WBC 13.2 K/mcL (4.5-11.0)
[2021-12-06 06:45] LABS: Blood Urea Nitrogen 23 mg/dL (8-23); Calcium 8.8 mg/dL (8.6-10.4); Carbon Dioxide 28 mmol/L (22-30); Chloride 103 mmol/L (96-108); Glomerular Filtration Rate 37; Glucose 107 mg/dL (70-105)
[2021-12-06] MEDS: PANTOPRAZOLE 40 MG TABLET PO SCH (07:43)
--- NOTE | 2021-12-06 07:47 | Internal Med Progress Note ---
SUBJECTIVE Subjective Patient information: Note initiated : 12/06/21 at 7:44 am Service Date, if different from initiated Date: [] Patient: Mat Elam a 81 y/o M admitted on 12/04/21 for increased falls. Chief Complaint: [] Interval history: History of present illness: Mr. Elam is a 81 year old M Presents the ED after a fall. Patient was with a structures assembler in the living room and the structures assembler turned around for a moment and that sound like the patient must of try to get up and then he fell hitting his head on the coffee table. This appeared to be a syncopal event. He fell last Tuesday as well when he was getting up from the toilet and he passed out. He typically was on 4 to 5 L of oxygen but over the past few months has gone up to 6 to 7 L. He has a history of pulmonary fibrosis emphysema and pulmonary hypertension and follows with Dr. Ceballos. Hospice has been discussed with them and hospice is supposed to meet with him next week. Patient has no complaints but his says he has become progressively weaker. Since his hospitalization at [facility] in June he has been wheelchair-bound but is able to transfer on his own. He also follows with cardiology for paroxysmal H fibrillation diastolic heart failure. He has a chronic cough and shortness of breath that he feels is baseline. Denies fever chills. his says that he has had some low blood pressures at time and she believes that the time where he passes out especially when he gets up from a sitting position quickly. He takes amiodarone and torsemide and Toprol as medications that could be contributing to his low blood pressures. Per the his heart rate runs in the 50s and does not run any lower but will sometimes run higher. Also carries a history of chronic kidney disease. There was a measured pulse ox of 61 in the ED and not sure if that is accurate but there was another 1 that was 85% as well. Creatinine is 2.2 which appears to be up maybe a bit above his baseline which I think is mid to high twos. CT chest abdomen pelvis showed no posttraumatic abnormality but did show severe lung disease with diffuse groundglass infiltrates as well as emphysema edematous changes. Did have leukocytosis but this is seems chronic per old labs but he did have a normal level on July 22. Question is with the hypoxia is or an underlying pneumonia bacterial or viral that is currently present. 12/05 Patient on 9 L still. Blood pressure systolic 90s to low 100s. Has usual cough and Shortness of breath. Decreased home Toprol and amiodarone. Renal function slightly improved gentle IV fluids today in follow-up. CRP elevated monitor 12/06 Patient seems to feel little better today more energy. Blood pressures improved. And cortisol good. Patient still shortness of breath is near baseline and cough is chronic. Renal function improving. Review of Systems: denies headache/fever/chills/nausea/vomiting/chest or abdominal pain/diarrhea. Otherwise see above. Constitutional Vitals: Vital Signs Temp Pulse Resp BP Pulse Ox O2 Del Method O2 Flow Rate 97.0 F 55 L 16 114/64 91 9 12/06/21 04:01 12/06/21 06:01 12/06/21 06:01 12/06/21 06:01 12/06/21 06:01 12/06/21 01:15 12/06/21 06:01 Period Temp Pulse Resp BP Sys/Olivares Pulse Ox O2 Del Method O2 Flow Rate Last 24 Hr 97 F-97.7 F 55-71 15-25 93-123/53-73 88-96 High Flow Nasal Cannula-Nasal Cannula 12-06 Intake and Output 12/05/21 12/06/21 12/06/21 21:59 05:59 13:59 Intake Total 860 240 Output Total 375 175 Balance 485 65 Weight 75.523 kg Intake & Output: Intake & Output 12/05/21 12/06/21 12/06/21 21:59 05:59 13:59 Intake Total 860 240 Output Total 375 175 Balance 485 65 Weight 75.523 kg Intake: IV 500 Sodium Chloride 0.9% 500 ml @ 500 75 mls/hr IV .[id number] ONE Rx#: [id number] Oral 360 240 Output: Void Amount 375 175 Other: Meal Dinner Percent of Meal Consumed 75% Feeding Ability Assist with Tray Set Up Urine Appearance Clear Clear Urine Color Dark Yellow Dark Yellow Urine Odor Normal Normal Exam: General: Alert, Awake, No acute Distress Eyes/N/T: EOMI, Head/Neck: neck supple, CV: RRR, No murmurs, Pulm: fine rales b/l, no wheezing today Abd: soft, nontender, +BS x4 Ext: no clubbing/cyanosis, trace-mild b/l LE edema Neuro: Alert, no focal deficits, moves all extremities, Skin: warm/dry OBJ DATA Labs CBC & Chem 7: 12/06/21 05:10 12/06/21 05:10 Labs: Abnormal Lab Results 12/06/21 12/06/21 12/05/21 05:10 05:10 08:19 WBC 13.2 H RBC 2.90 L Hgb 8.6 L Hct 28.4 L POC Hct MCHC 30.3 L RDW 17.3 H Immature Gran % (Auto) 0.8 H Lymph % (Auto) 10.3 L [place] % (Auto) 13.1 H Lymph # (Auto) 1.36 L [place] # (Auto) 1.72 H Lymphocytes % Immature Gran # 0.11 H Absolute Neutrophils 9.44 H RBC Morphology Anisocytosis Chloride POC BUN BUN Creatinine 1.7 H POC Creatinine Glucose 107 H POC Glucose Uric Acid POC WB Ioniz Calcium AST ALT Lactate Dehydrogenase C-Reactive Protein 10.30 H Albumin Globulin Albumin/Globulin Ratio Procalcitonin Cortisol AM Sample 26.6 H Ur Leukocyte Esterase Hyaline Casts 12/05/21 12/05/21 12/04/21 06:14 06:14 14:15 WBC 13.4 H RBC 3.00 L Hgb 8.9 L Hct 28.6 L POC Hct MCHC RDW 17.0 H Immature Gran % (Auto) 1.1 H Lymph % (Auto) 13.4 L [place] % (Auto) Lymph # (Auto) [place] # (Auto) 1.56 H Lymphocytes % Immature Gran # 0.15 H Absolute Neutrophils 9.54 H RBC Morphology Anisocytosis Chloride POC BUN BUN 30 H Creatinine 1.9 H POC Creatinine Glucose POC Glucose Uric Acid 8.8 H POC WB Ioniz Calcium AST ALT 44 H Lactate Dehydrogenase 336 H C-Reactive Protein 9.70 H Albumin 2.8 L Globulin Albumin/Globulin Ratio 0.8 L Procalcitonin Cortisol AM Sample Ur Leukocyte Esterase 25 A Hyaline Casts 6 H 12/04/21 12/04/21 12/04/21 12:41 12:41 12:41 WBC RBC Hgb Hct POC Hct MCHC RDW Immature Gran % (Auto) Lymph % (Auto) [place] % (Auto) Lymph # (Auto) [place] # (Auto) Lymphocytes % Immature Gran # Absolute Neutrophils RBC Morphology Anisocytosis Chloride 95 L POC BUN BUN 31 H Creatinine 2.1 H POC Creatinine Glucose 157 H POC Glucose Uric Acid POC WB Ioniz Calcium AST 48 H ALT 49 H Lactate Dehydrogenase C-Reactive Protein 10.50 H Albumin 3.1 L Globulin 4.1 H Albumin/Globulin Ratio Procalcitonin 0.14 H Cortisol AM Sample Ur Leukocyte Esterase Hyaline Casts 12/04/21 12/04/21 12/04/21 12:41 12:41 12:38 WBC 14.9 H RBC 3.24 L Hgb 9.6 L Hct 31.4 L POC Hct 32.0 L MCHC 30.6 L RDW 17.0 H Immature Gran % (Auto) 1.0 H Lymph % (Auto) 9.0 L [place] % (Auto) Lymph # (Auto) 1.35 L [place] # (Auto) 1.62 H Lymphocytes % 10 L Immature Gran # 0.15 H Absolute Neutrophils 11.44 H RBC Morphology Abnormal A Anisocytosis 1+ A Chloride POC BUN 28 H BUN Creatinine POC Creatinine 2.2 H Glucose POC Glucose 151 H Uric Acid POC WB Ioniz Calcium 1.11 L AST ALT Lactate Dehydrogenase C-Reactive Protein Albumin Globulin Albumin/Globulin Ratio Procalcitonin Cortisol AM Sample Ur Leukocyte Esterase Hyaline Casts Meds: Medications Acetaminophen (Acetaminophen 325 Mg Tablet) 650 mg PO Q6HP PRN; Protocol PRN Reason: Per Pain Protocol/Fever > 101 Last Admin: 12/05/21 21:12 Dose: 650 mg Hydrocodone Bitart/Acetaminophen (Hydrocodone/Apap 5/325mg Tablet) 1 tab PO Q4HP PRN PRN Reason: PAIN LEVEL 3-6 Last Admin: 12/06/21 01:04 Dose: 1 tab Allopurinol (Allopurinol 100 Mg Tablet) 100 mg PO QDAY [facility] Last Admin: 12/05/21 10:52 Dose: 100 mg Amiodarone HCl (Amiodarone Hcl 200 Mg Tablet) 200 mg PO DAILY [facility] Apixaban (Apixaban 5 Mg Tablet) 5 mg PO BID [facility] Last Admin: 12/05/21 21:12 Dose: 5 mg Budesonide (Budesonide 0.5 Mg/2 Ml Ampul.Neb) 0.5 mg NEB Q12 [facility] Last Admin: 12/05/21 21:08 Dose: 0.5 mg Docusate Sodium (Docusate Sodium 100 Mg Capsule) 100 mg PO BID [facility] Last Admin: 12/05/21 21:18 Dose: Not Given Potassium Chloride 40 meq/ (Dextrose) 520 mls @ 130 mls/hr IV UD PRN PRN Reason: Potassium < 3 Magnesium Sulfate (Magnesium Sulfate) 2 gm in 50 mls @ 50 mls/hr IV UD PRN PRN Reason: Magnesium </= 1.6 Ceftriaxone Sodium 2 gm/ (Dextrose) 50 mls @ 100 mls/hr IV Q24H [facility]; Protocol Last Infusion: 12/05/21 11:51 Dose: Infused Azithromycin 500 mg/ Dextrose 250 mls @ 250 mls/hr IV Q24H [facility]; Protocol Stop: 12/06/21 09:59 Last Infusion: 12/05/21 13:37 Dose: Infused Ipratropium [place] (Ipratropium 2.5 Ml Ampul.Neb) 2.5 ml NEB Q4HRT PRN PRN Reason: dyspnea Levalbuterol HCl (Levalbuterol 0.63 Mg/3 Ml Ampul.Neb) 0.63 mg NEB Q4HRT PRN PRN Reason: dyspnea Melatonin (Melatonin 3 Mg Tablet) 3 mg PO QHS [facility] Last Admin: 12/05/21 21:14 Dose: 3 mg Memantine (Memantine 10 Mg Tablet) 5 mg PO BID [facility] Last Admin: 12/05/21 21:11 Dose: 5 mg Metoprolol Succinate (Metoprolol Succinate 25 Mg Tab.Xl.24h) 12.5 mg PO BID [facility] Last Admin: 12/05/21 21:11 Dose: 12.5 mg Metoprolol Tartrate (Metoprolol Tartrate 5 Mg/5 Ml Vial) 5 mg IV Q2HP PRN PRN Reason: Tachyarrhythmias HR>110 Ondansetron HCl (Ondansetron 4 Mg/2 Ml Vial) 4 mg IV Q4HP PRN PRN Reason: Nausea And Vomiting Pantoprazole Sodium (Pantoprazole 40 Mg Tablet) 40 mg PO QAMAC [facility] Last Admin: 12/06/21 07:43 Dose: 40 mg Polyethylene Glycol (Polyethylene Glycol 3350 17 Gm Packet) 17 gm PO DAILYP PRN PRN Reason: Constipation Potassium Chloride (Potassium Chloride 20 Meq Tablet) 40 meq PO UD PRN PRN Reason: Potssium is 3-3.5 Potassium Chloride (Potassium Chloride 20 Meq Tablet) 40 meq PO UD PRN PRN Reason: Potassium < 3 Senna (Sennosides 1 Tablet) 2 tab PO DAILYP PRN PRN Reason: Constipation Sodium Chloride (0.9 % Sodium Chloride 10 Ml Syringe) 10 ml IV Q8 [facility] Last Admin: 12/06/21 05:20 Dose: 10 ml Tamsulosin HCl (Tamsulosin 0.4 Mg Capsule) 0.8 mg PO QDAY [facility] Last Admin: 12/05/21 10:52 Dose: 0.8 mg A/P Narrative A/P Narrative: A: *Fall/syncope/generalized weakness/debility/poor functional status: -Has been wheelchair-bound since hospitalization in June -syncope suspected to be blood pressure/medication related *Hypotension,mild: pt on torpol/torsemide/amiodarone -BP improved *Acute on chronic hypoxic respiratory failure: 2/2 progression of chronic dz vs pna+chronic -pt on 6-7L@home, is on 8-9L currenlty, up to 15L in ED *End-stage COPD/pulmonary fibrosis/pulmonary hypertension: *possible underlying PNA: -RV/covid neg, Myco/Strep -mild leukocytosis w/o bandemia or fevers *ANUPAMA on CKD III: 2/2 volume depletion, improving with IVF *Anemia, chronic: *PAF: On apixaban/amiodarone/Toprol *h/o dCHF: On BB/torsemide *Mild dementia: *GERD: *Goals of care: hospice to meet with pt/family next week P: -Empiric antibiotics for now, pending SC -IS/Acapella, prn nebs (no albuterol, will try xopenex) -Myco pending -O2 supp, wean as able -s/p IVF -hold torsemide, monitor i/o's, -decreased BB and amiodarone for low bp and bradycardia -CM for placement -PT/OT -ppx: Eliquis / home ppi DNR Time Spent With Patient Time: Total time spent is greater than 50% in coordination of care (as documented) at patient's floor/unit and/or counseling patient: Total time spent with greater than 50% in coordination of care (as documented) at patient's floor/unit and/or counseling patient:: 25 - 35 minutes
[2021-12-06] MEDS: METOPROLOL SUCCINATE 25 MG TAB.XL.24H PO SCH ×2 (10:08→20:38)
[2021-12-06] MEDS: TAMSULOSIN 0.4 MG CAPSULE PO SCH (10:08)
[2021-12-06] MEDS: APIXABAN 5 MG TABLET PO SCH ×2 (10:09→20:37)
[2021-12-06] MEDS: ALLOPURINOL 100 MG TABLET PO SCH (10:09)
[2021-12-06] MEDS: cefTRIAXone 2 GM in DEXTROSE 5% IN WATER 50 ML IV SCH (10:09)
[2021-12-06] MEDS: DOCUSATE SODIUM 100 MG CAPSULE PO SCH ×2 (10:09→20:37)
[2021-12-06] MEDS: MEMANTINE 10 MG TABLET PO SCH ×2 (10:11→20:38)
[2021-12-06] MEDS: BUDESONIDE 0.5 MG/2 ML AMPUL.NEB NEB SCH ×2 (10:13→19:53)
[2021-12-06] MEDS: ACETAMINOPHEN 325 MG TABLET PO PRN (10:30)
[2021-12-06] MEDS: AZITHROMYCIN 500 MG in DEXTROSE 5% IN WATER 250 ML IV SCH (11:07)
[2021-12-06] MEDS: AMIODARONE HCL 200 MG TABLET PO SCH (13:12)
[2021-12-06] MEDS: MELATONIN 3 MG TABLET PO SCH (20:37)
[2021-12-06] MEDS: IPRATROPIUM 2.5 ML AMPUL.NEB NEB PRN (23:57)
[2021-12-06] MEDS: LEVALBUTEROL 0.63 MG/3 ML AMPUL.NEB NEB PRN (23:57)
[2021-12-07] MEDS: morphine 2 MG/ML VIAL IV PRN (01:23)
[2021-12-07] MEDS ORDERED: morphine 2 MG/ML VIAL ONE (01:25)
[2021-12-07] MEDS: 0.9 % SODIUM CHLORIDE 10 ML SYRINGE IV SCH ×3 (05:36→21:13)
[2021-12-07 06:45] LABS: Blood Urea Nitrogen 19 mg/dL (8-23); Calcium 8.9 mg/dL (8.6-10.4); Carbon Dioxide 28 mmol/L (22-30); Chloride 102 mmol/L (96-108); Glomerular Filtration Rate 47; Glucose 103 mg/dL (70-105)
[2021-12-07] MEDS: ACETAMINOPHEN 325 MG TABLET PO PRN ×2 (07:44→18:41)
[2021-12-07] MEDS: PANTOPRAZOLE 40 MG TABLET PO SCH (07:45)
[2021-12-07] MEDS: BUDESONIDE 0.5 MG/2 ML AMPUL.NEB NEB SCH ×2 (08:25→20:04)
[2021-12-07] MEDS: IPRATROPIUM 2.5 ML AMPUL.NEB NEB PRN (08:25)
[2021-12-07] MEDS: LEVALBUTEROL 0.63 MG/3 ML AMPUL.NEB NEB PRN (08:25)
[2021-12-07] MEDS: AMIODARONE HCL 200 MG TABLET PO SCH (09:06)
[2021-12-07] MEDS: ALLOPURINOL 100 MG TABLET PO SCH (09:06)
[2021-12-07] MEDS: DOCUSATE SODIUM 100 MG CAPSULE PO SCH ×2 (09:06→21:11)
[2021-12-07] MEDS: METOPROLOL SUCCINATE 25 MG TAB.XL.24H PO SCH ×2 (09:06→21:11)
[2021-12-07] MEDS: MEMANTINE 10 MG TABLET PO SCH ×2 (09:06→21:14)
[2021-12-07] MEDS: TAMSULOSIN 0.4 MG CAPSULE PO SCH (09:06)
[2021-12-07] MEDS: APIXABAN 5 MG TABLET PO SCH ×2 (09:06→21:12)
[2021-12-07] MEDS: cefTRIAXone 2 GM in DEXTROSE 5% IN WATER 50 ML IV SCH (09:34)
--- NOTE | 2021-12-07 12:42 | Internal Med Progress Note ---
SUBJECTIVE Subjective Patient information: Note initiated : 12/07/21 at 12:41 pm Service Date, if different from initiated Date: [] Patient: Mat Elam 81 y/o M admitted on 12/04/21 for increased falls. Chief Complaint: [Acute on chronic hypoxemic resp. failure] Principal diagnosis: Syncope, failure to thrive, acute on chronic hypoxemic respiratory failure Interval history: The patient continues to desaturate with minimal activity. He had no active questions or concerns today. We will be having a goals of care discussion with the family this afternoon. Constitutional Vitals: Vital Signs Temp Pulse Resp BP Pulse Ox O2 Del Method O2 Flow Rate 97 F 56 L 28 H 114/65 91 12 12/07/21 12:01 12/07/21 12:01 12/07/21 12:01 12/07/21 12:01 12/07/21 12:01 12/07/21 08:25 12/07/21 12:01 Period Temp Pulse Resp BP Sys/Olivares Pulse Ox O2 Del Method O2 Flow Rate Last 24 Hr 96.8 F-97.6 F 54-63 12-28 90-134/56-76 70-98 High Flow Nasal Cannula-Oxymask, High Flow Nasal Cannula, Bubble Humidifier 7-19 Intake and Output 12/06/21 12/07/21 12/07/21 21:59 05:59 13:59 Intake Total 90 50 410 Output Total 300 350 Balance -210 -300 410 Weight 75.206 kg Intake & Output: Intake & Output 12/06/21 12/07/21 12/07/21 21:59 05:59 13:59 Intake Total 90 50 410 Output Total 300 350 Balance -210 -300 410 Weight 75.206 kg Intake: Nourishment/Supplement quantity 40 (ml) IV 50 Rocephin 2 gm In Dextrose 5% in 50 Water 50 ml @ 100 mls/hr IV Q24H [facility] Rx#:[id number] Oral 50 50 360 Output: Void Amount 300 350 Other: Meal Nourishment/Supplement Breakfast Percent of Meal Consumed 50% 1 bite Feeding Ability Assist with Tray Set Up Total Assistance Nourishment/Supplement name Ensure Urine Appearance Clear Clear Urine Color Bright Yellow Dark Yellow Head Head exam: Present atraumatic and normal inspection Eye Eye exam: Present normal appearance ENT ENT exam: Present mucous membranes moist, normal exam and normal external ear exam Neck Neck exam: Present normal inspection Respiratory Respiratory exam: Present decreased breath sounds, prolonged expiratory phase, rhonchi and wheezes; Absent normal respiratory exam Cardiovascular Cardiovascular exam: Present normal rate and rhythm GI/Abdominal GI/Abdominal exam: Present normal bowel sounds Back Exam Back exam: Present normal inspection Neurological Exam Neurological exam: Present alert and oriented X3 Skin Skin exam: Present intact and warm OBJ DATA Labs CBC & Chem 7: 12/06/21 05:10 12/07/21 05:14 Labs: Abnormal Lab Results 12/07/21 12/06/21 12/06/21 05:14 05:10 05:10 WBC RBC Hgb Hct POC Hct MCHC RDW Immature Gran % (Auto) Lymph % (Auto) [place] % (Auto) Lymph # (Auto) [place] # (Auto) Lymphocytes % Immature Gran # Absolute Neutrophils RBC Morphology Anisocytosis ESR 98 H Chloride POC BUN BUN Creatinine 1.4 H 1.7 H POC Creatinine Glucose 107 H POC Glucose Uric Acid POC WB Ioniz Calcium AST ALT Lactate Dehydrogenase C-Reactive Protein 13.40 H 10.30 H Albumin Globulin Albumin/Globulin Ratio Procalcitonin Cortisol AM Sample Ur Leukocyte Esterase Hyaline Casts 12/06/21 12/05/21 12/05/21 05:10 08:19 06:14 WBC 13.2 H RBC 2.90 L Hgb 8.6 L Hct 28.4 L POC Hct MCHC 30.3 L RDW 17.3 H Immature Gran % (Auto) 0.8 H Lymph % (Auto) 10.3 L [place] % (Auto) 13.1 H Lymph # (Auto) 1.36 L [place] # (Auto) 1.72 H Lymphocytes % Immature Gran # 0.11 H Absolute Neutrophils 9.44 H RBC Morphology Anisocytosis ESR Chloride POC BUN BUN 30 H Creatinine 1.9 H POC Creatinine Glucose POC Glucose Uric Acid 8.8 H POC WB Ioniz Calcium AST ALT 44 H Lactate Dehydrogenase 336 H C-Reactive Protein 9.70 H Albumin 2.8 L Globulin Albumin/Globulin Ratio 0.8 L Procalcitonin Cortisol AM Sample 26.6 H Ur Leukocyte Esterase Hyaline Casts 12/05/21 12/04/21 12/04/21 06:14 14:15 12:41 WBC 13.4 H RBC 3.00 L Hgb 8.9 L Hct 28.6 L POC Hct MCHC RDW 17.0 H Immature Gran % (Auto) 1.1 H Lymph % (Auto) 13.4 L [place] % (Auto) Lymph # (Auto) [place] # (Auto) 1.56 H Lymphocytes % Immature Gran # 0.15 H Absolute Neutrophils 9.54 H RBC Morphology Anisocytosis ESR Chloride 95 L POC BUN BUN 31 H Creatinine 2.1 H POC Creatinine Glucose 157 H POC Glucose Uric Acid POC WB Ioniz Calcium AST ALT Lactate Dehydrogenase C-Reactive Protein Albumin 3.1 L Globulin Albumin/Globulin Ratio Procalcitonin Cortisol AM Sample Ur Leukocyte Esterase 25 A Hyaline Casts 6 H 12/04/21 12/04/21 12/04/21 12:41 12:41 12:41 WBC RBC Hgb Hct POC Hct MCHC RDW Immature Gran % (Auto) Lymph % (Auto) [place] % (Auto) Lymph # (Auto) [place] # (Auto) Lymphocytes % 10 L Immature Gran # Absolute Neutrophils RBC Morphology Abnormal A Anisocytosis 1+ A ESR Chloride POC BUN BUN Creatinine POC Creatinine Glucose POC Glucose Uric Acid POC WB Ioniz Calcium AST 48 H ALT 49 H Lactate Dehydrogenase C-Reactive Protein 10.50 H Albumin Globulin 4.1 H Albumin/Globulin Ratio Procalcitonin 0.14 H Cortisol AM Sample Ur Leukocyte Esterase Hyaline Casts 12/04/21 12/04/21 12:41 12:38 WBC 14.9 H RBC 3.24 L Hgb 9.6 L Hct 31.4 L POC Hct 32.0 L MCHC 30.6 L RDW 17.0 H Immature Gran % (Auto) 1.0 H Lymph % (Auto) 9.0 L [place] % (Auto) Lymph # (Auto) 1.35 L [place] # (Auto) 1.62 H Lymphocytes % Immature Gran # 0.15 H Absolute Neutrophils 11.44 H RBC Morphology Anisocytosis ESR Chloride POC BUN 28 H BUN Creatinine POC Creatinine 2.2 H Glucose POC Glucose 151 H Uric Acid POC WB Ioniz Calcium 1.11 L AST ALT Lactate Dehydrogenase C-Reactive Protein Albumin Globulin Albumin/Globulin Ratio Procalcitonin Cortisol AM Sample Ur Leukocyte Esterase Hyaline Casts Meds: Medications Acetaminophen (Acetaminophen 325 Mg Tablet) 650 mg PO Q6HP PRN; Protocol PRN Reason: Per Pain Protocol/Fever > 101 Last Admin: 12/07/21 07:44 Dose: 650 mg Hydrocodone Bitart/Acetaminophen (Hydrocodone/Apap 5/325mg Tablet) 1 tab PO Q4HP PRN PRN Reason: PAIN LEVEL 3-6 Last Admin: 12/06/21 20:46 Dose: 1 tab Allopurinol (Allopurinol 100 Mg Tablet) 100 mg PO QDAY [facility] Last Admin: 12/07/21 09:06 Dose: 100 mg Amiodarone HCl (Amiodarone Hcl 200 Mg Tablet) 200 mg PO DAILY [facility] Last Admin: 12/07/21 09:06 Dose: 200 mg Apixaban (Apixaban 5 Mg Tablet) 5 mg PO BID [facility] Last Admin: 12/07/21 09:06 Dose: 5 mg Budesonide (Budesonide 0.5 Mg/2 Ml Ampul.Neb) 0.5 mg NEB Q12 [facility] Last Admin: 12/07/21 08:25 Dose: 0.5 mg Docusate Sodium (Docusate Sodium 100 Mg Capsule) 100 mg PO BID [facility] Last Admin: 12/07/21 09:06 Dose: 100 mg Potassium Chloride 40 meq/ (Dextrose) 520 mls @ 130 mls/hr IV UD PRN PRN Reason: Potassium < 3 Magnesium Sulfate (Magnesium Sulfate) 2 gm in 50 mls @ 50 mls/hr IV UD PRN PRN Reason: Magnesium </= 1.6 Ceftriaxone Sodium 2 gm/ (Dextrose) 50 mls @ 100 mls/hr IV Q24H [facility]; Protocol Last Infusion: 12/07/21 10:07 Dose: Infused Ipratropium [place] (Ipratropium 2.5 Ml Ampul.Neb) 2.5 ml NEB Q4HRT PRN PRN Reason: dyspnea Last Admin: 12/07/21 08:25 Dose: 2.5 ml Levalbuterol HCl (Levalbuterol 0.63 Mg/3 Ml Ampul.Neb) 0.63 mg NEB Q4HRT PRN PRN Reason: dyspnea Last Admin: 12/07/21 08:25 Dose: 0.63 mg Melatonin (Melatonin 3 Mg Tablet) 3 mg PO QHS [facility] Last Admin: 12/06/21 20:37 Dose: 3 mg Memantine (Memantine 10 Mg Tablet) 5 mg PO BID [facility] Last Admin: 12/07/21 09:06 Dose: 5 mg Metoprolol Succinate (Metoprolol Succinate 25 Mg Tab.Xl.24h) 12.5 mg PO BID [facility] Last Admin: 12/07/21 09:06 Dose: 12.5 mg Metoprolol Tartrate (Metoprolol Tartrate 5 Mg/5 Ml Vial) 5 mg IV Q2HP PRN PRN Reason: Tachyarrhythmias HR>110 Morphine Sulfate (Morphine 2 Mg/Ml Vial) 2 mg IV Q2HP PRN; Protocol PRN Reason: Per Pain Protocol Last Admin: 12/07/21 01:23 Dose: 2 mg Ondansetron HCl (Ondansetron 4 Mg/2 Ml Vial) 4 mg IV Q4HP PRN PRN Reason: Nausea And Vomiting Pantoprazole Sodium (Pantoprazole 40 Mg Tablet) 40 mg PO QAMAC [facility] Last Admin: 12/07/21 07:45 Dose: 40 mg Polyethylene Glycol (Polyethylene Glycol 3350 17 Gm Packet) 17 gm PO DAILYP PRN PRN Reason: Constipation Potassium Chloride (Potassium Chloride 20 Meq Tablet) 40 meq PO UD PRN PRN Reason: Potssium is 3-3.5 Potassium Chloride (Potassium Chloride 20 Meq Tablet) 40 meq PO UD PRN PRN Reason: Potassium < 3 Senna (Sennosides 1 Tablet) 2 tab PO DAILYP PRN PRN Reason: Constipation Sodium Chloride (0.9 % Sodium Chloride 10 Ml Syringe) 10 ml IV Q8 [facility] Last Admin: 12/07/21 05:36 Dose: 10 ml Tamsulosin HCl (Tamsulosin 0.4 Mg Capsule) 0.8 mg PO QDAY [facility] Last Admin: 12/07/21 09:06 Dose: 0.8 mg A/P Narrative A/P Narrative: A: *Fall/syncope/generalized weakness/debility/poor functional status: -Has been wheelchair-bound since hospitalization in June -syncope suspected to be blood pressure/medication related *Hypotension,mild: pt on torpol/torsemide/amiodarone -BP improved *Acute on chronic hypoxic respiratory failure: 2/2 progression of chronic dz vs likely chronic aspiration pneunomonits/?pna+chronic -pt on 6-7L@home, is on 8-9L currenlty, up to 15L in ED *End-stage COPD/pulmonary fibrosis/pulmonary hypertension: *possible underlying PNA: -RV/covid neg, Myco/Strep -mild leukocytosis w/o bandemia or fevers *ANPUAMA on CKD III: 2/2 volume depletion, improving with IVF *Anemia, chronic: *PAF: On apixaban/amiodarone/Toprol *h/o dCHF: On BB/torsemide *Mild dementia: *GERD: *Goals of care: hospice at [facility] likely this week Time Spent With Patient Time: Total time spent is greater than 50% in coordination of care (as documented) at patient's floor/unit and/or counseling patient: Total time spent with greater than 50% in coordination of care (as documented) at patient's floor/unit and/or counseling patient:: 25 - 35 minutes
[2021-12-07] MEDS ORDERED: diphenhydrAMINE 25 MG CAPSULE PO PRN (19:11)
[2021-12-07] MEDS: MELATONIN 3 MG TABLET PO SCH (21:12)
[2021-12-07] MEDS: HYDROcodone/APAP 5/325MG TABLET PO PRN (23:19)
[2021-12-08] MEDS: morphine 2 MG/ML VIAL IV PRN (02:08)
[2021-12-08] MEDS: 0.9 % SODIUM CHLORIDE 10 ML SYRINGE IV SCH (05:44)
[2021-12-08] MEDS: IPRATROPIUM 2.5 ML AMPUL.NEB NEB PRN (09:10)
[2021-12-08] MEDS: BUDESONIDE 0.5 MG/2 ML AMPUL.NEB NEB SCH (09:10)
[2021-12-08] MEDS: LEVALBUTEROL 0.63 MG/3 ML AMPUL.NEB NEB PRN (09:10)
[2021-12-08] MEDS ORDERED: cefTRIAXone 2 GM VIAL ONE (09:18)
[2021-12-08] MEDS: APIXABAN 5 MG TABLET PO SCH (09:20)
[2021-12-08] MEDS: PANTOPRAZOLE 40 MG TABLET PO SCH (09:20)
[2021-12-08] MEDS: AMIODARONE HCL 200 MG TABLET PO SCH (09:20)
[2021-12-08] MEDS: TAMSULOSIN 0.4 MG CAPSULE PO SCH (09:20)
[2021-12-08] MEDS: DOCUSATE SODIUM 100 MG CAPSULE PO SCH (09:20)
[2021-12-08] MEDS: MEMANTINE 10 MG TABLET PO SCH (09:21)
[2021-12-08] MEDS: METOPROLOL SUCCINATE 25 MG TAB.XL.24H PO SCH (09:22)
[2021-12-08] MEDS: ALLOPURINOL 100 MG TABLET PO SCH (09:22)
[2021-12-08] MEDS: cefTRIAXone 2 GM in DEXTROSE 5% IN WATER 50 ML IV SCH (09:25)
--- NOTE | 2021-12-08 10:12 | EKG ---
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
--- NOTE | 2021-12-08 11:28 | Discharge Summary ---
Discharge Provider Provider IMPORTANT FOLLOW-UP INFORMATION FOR PCP: 1. Transition to hospice Patient information: Note initiated : 12/08/21 at 11:25 am Service Date, if different from initiated Date: [] Patient: Mat Elam 81 y/o M admitted on 12/04/21 for increased falls. Chief Complaint: [] Date of admission: 12/04/21 16:50 Discharge date: 12/08/21 Primary care physician: Geovanny Mckeon NP Admitting clinician: Jose Canseco Consults: 12/04/21 Consult to Physician [CONS] Stat Comment: Consulting Provider: Jose Canseco Reason For Exam: Physician to Consult Attending physician on discharge: [facility] COURSE Hospital Course Hospital course: History of present illness: Mr. Elam is a 81 year old M Presents the ED after a fall. Patient was with a database manager in the living room and the database manager turned around for a moment and that sound like the patient must of try to get up and then he fell hitting his head on the coffee table. This appeared to be a syncopal event. He fell last Tuesday as well when he was getting up from the toilet and he passed out. He typically was on 4 to 5 L of oxygen but over the past few months has gone up to 6 to 7 L. He has a history of pulmonary fibrosis emphysema and pulmonary hypertension and follows with Dr. Ceballos. Hospice has been discussed with them and hospice is supposed to meet with him next week. Patient has no complaints but his says he has become progressively weaker. Since his hospitalization at [place] in June he has been wheelchair-bound but is able to transfer on his own. He also follows with cardiology for paroxysmal H fibrillation diastolic heart failure. He has a chronic cough and shortness of breath that he feels is baseline. Denies fever chills. his says that he has had some low blood pressures at time and she believes that the time where he passes out especially when he gets up from a sitting position quickly. He takes amiodarone and torsemide and Toprol as medications that could be contributing to his low blood pressures. Per the his heart rate runs in the 50s and does not run any lower but will sometimes run higher. Also carries a history of chronic kidney disease. There was a measured pulse ox of 61 in the ED and not sure if that is accurate but there was another 1 that was 85% as well. Creatinine is 2.2 which appears to be up maybe a bit above his baseline which I think is mid to high twos. CT chest abdomen pelvis showed no posttraumatic abnormality but did show severe lung disease with diffuse groundglass infiltrates as well as emphysema edematous changes. Did have leukocytosis but this is seems chronic per old labs but he did have a normal level on July 22. Question is with the hypoxia is or an underlying pneumonia bacterial or viral that is currently present. A: *Fall/syncope/generalized weakness/debility/poor functional status: -Has been wheelchair-bound since hospitalization in June -syncope suspected to be blood pressure/medication related *Hypotension,mild: pt on torpol/torsemide/amiodarone -BP improved *Acute on chronic hypoxic respiratory failure: 2/2 progression of chronic dz vs likely chronic aspiration pneunomonits/?pna+chronic -pt on 6-7L@home, is on 8-9L currenlty, up to 15L in ED *End-stage COPD/pulmonary fibrosis/pulmonary hypertension: *possible underlying PNA: -RV/covid neg, Myco/Strep -mild leukocytosis w/o bandemia or fevers *ANUPAMA on CKD III: 2/2 volume depletion, improving with IVF *Anemia, chronic: *PAF: On apixaban/amiodarone/Toprol *h/o dCHF: On BB/torsemide *Mild dementia: *GERD: *Goals of care: hospice to meet with pt/family next week P: -ST eval -Empiric antibiotics for now, pending SC -IS/Acapella, prn nebs (no albuterol, will try xopenex) -Myco pending -O2 supp, wean as able -s/p IVF -hold torsemide, monitor i/o's, -decreased BB and amiodarone for low bp and bradycardia -CM for placement -PT/OT -ppx: Eliquis / home ppi DNR Discharge diagnosis: Acute hypoxemic respiratory failure, failure to thrive Reason for admission: Falls, weakness Time Spent with Patient Time attestation: Total time spent providing and/or coordinating discharge services: Time spent: Greater than 30 minutes EXAM Constitutional Vitals: Temp Pulse Resp BP Pulse Ox O2 Del Method O2 Flow Rate 97.3 F 62 22 117/75 93 High Flow Nasal Cannula 12 12/08/21 08:01 12/08/21 10:01 12/08/21 10:01 12/08/21 10:01 12/08/21 10:01 12/08/21 06:49 12/08/21 10:01 General appearance: average body habitus and no acute distress Head Head exam: Present atraumatic and normal inspection Eye Eye exam: Present EOMI, PERRL and scleral icterus Neck Neck exam: Present full ROM Respiratory Respiratory exam: Present decreased breath sounds and prolonged expiratory phase Cardiovascular Cardiovascular exam: Present normal rate and rhythm GI/Abdominal GI/Abdominal exam: Present normal bowel sounds and soft; Absent guarding Neurological Exam Neurological exam: Present alert Psychiatric Psychiatric exam: Present normal affect Discharge Data Data Completed and Pending Labs on day of discharge: Preliminary micro results at discharge 12/04/21 22:23 Gram Stain - Preliminary Sputum source - Induced Sputum Culture - Preliminary Discharge Plan Patient/Caregiver Discharge Instructions Activity: wear oxygen at all times Diet: Regular Diet Instructions: Hospice Care (GEN) Prescriptions: Continued memantine 5 mg tablet 5 mg PO BID potassium chloride 10 mEq capsule, extended release 10 meq PO QDAY tamsulosin [Flomax] 0.4 mg capsule 0.8 mg PO QDAY omeprazole 20 mg capsule,delayed release(DR/EC) 20 mg PO Q2D metformin 500 mg tablet 500 mg PO BID amiodarone 400 mg tablet 200 mg PO BID torsemide 10 mg tablet 20 mg PO QDAY metoprolol succinate 25 mg tablet extended release 24 hr 25 mg PO BID ipratropium bromide 0.02 % solution 2.5 ml inhalation QID PRN (Reason: shortness of breath or wheezing) Qty: 150 12RF Rx Instructions: Aerosolize and inhale 1 vial as often as every 4 hours as needed for shortness of breath. Rinse and clear mouth after. Eliquis 5 mg tablet 5 mg PO BID allopurinol 100 mg tablet 100 mg PO QDAY Atrovent HFA 17 mcg/actuation HFA aerosol inhaler 2 puff inhalation Q8H Qty: 12.9 1RF Rx Instructions: Take 2 puffs 3 times a day. May adjust dose lower as needed for tolerance. cholecalciferol (vitamin D3) [Vitamin D3] 25 mcg (1,000 unit) tablet 2,000 unit PO DAILY Other Ambulatory Orders: ST Discharge Order (Routine) Facility: [facility] - Location: [facility] Ordered By: Lenard Weems Follow Up Plan Follow up with: Geovanny Mckeon NP [Primary Care Provider] - Patient Disposition: Xfer SNF Prognosis: Fair Rehab Potential: Critical I certify that the patient requires SNF services: Yes Overall status at discharge: patient is not back to baseline Discharge Orders: Discharge Order (Routine); Ordered 12/08/21 Ordered By: Lenard Weems
[2021-12-09 14:36] LABS: M. Pneumoniae IGG 1.85
== END 2021-12-08 13:42 | DRG 312 ==
LOC: ED 12:01 → ICU 16:50
PROVIDERS: ADMIT Internal Medicine; ATTEND Student in an Organized Health Care Education/Training Program